=== PATIENT | female | born 1995 | race African-American/Black ===

== ENCOUNTER 2021-05-20 13:36 | Emergency (ER) | payer OTHER, SELFPAY ==
--- NOTE | 2021-05-20 16:28 | ER ---
Nurse's Notes [facility] Name: Kayli Mukherjee Age: 26 yrs Sex: Female : 1995 Arrival Date: 05/20/2021 Time: 13:40 Bed Waiting Private MD: Diagnosis: ED Course: 05/20 13:40 Patient arrived in ED. mr 16:27 Patient's name was called from ER lobby. No response. Unable to locate patient. Will jl7 disposition as left without being seen by a provider. Administered Medications: No medications were administered Outcome: 16:28 Patient left the ED. jl7 Signatures: Rafia Hanks Jahala RN RN jl7
== END 2021-05-20 16:28 | disposition left against medical advice (07) ==
LOC: ER 13:36
DX: Z02.89 Encounter for other administrative examinations (principal)

== ENCOUNTER 2022-04-24 01:30 | Emergency (ER) | payer SELFPAY ==
--- OUTSIDE RECORDS SUMMARY | 2022-04-24 01:49 | XMS REPORT | Continuity of Care Document ---
:1995 Author Organization [facility] t Address [address] [place] [address] Care Team Providers Name Role Phone Lida Lopez Primary Care Physician [phone] Problems This patient has no known problems. Allergies, Adverse Reactions, Alerts This patient has no known allergies or adverse reactions. Medications Ordered Filled Start Stop Current Ordering Indication Dosage Frequency Signature Comments Components Source Medication Medication Date Date Medication? Clinician (SIG) Name Name Dose 2021-0 No Unknown 5-17 00:00: 00 Dose 2022-0 No Unknown 4-07 00:00: 00 Dose 2022-0 No Unknown 4-07 00:00: 00 Dose 2022-0 No Unknown 4-07 00:00: 00 Dose 2022-0 No Unknown 4-07 00:00: 00 Dose 2022-0 No Unknown 4-07 00:00: 00 Dose 2022-0 No Unknown 4-07 00:00: 00 Dose 2022-0 No Unknown 4-07 00:00: 00 Dose 2022-0 No Unknown 4-07 00:00: 00 Dose 2022-0 No Unknown 4-07 00:00: 00 Dose 2022-0 No Unknown 4-07 00:00: 00 Dose 2022-0 No Unknown 4-07 00:00: 00 Dose 2022-0 No Unknown 4-07 00:00: 00 Dose 2022-0 No Unknown 4-07 00:00: 00 Dose 2022-0 No Unknown 4-07 00:00: 00 Dose 2022-0 No Unknown 4-06 00:00: 00 Dose 2022-0 No Unknown 4-05 00:00: 00 Dose 2022-0 No Unknown 4-04 00:00: 00 Dose 2022-0 No Unknown 4-04 00:00: 00 Dose 2022-0 No Unknown 4-04 00:00: 00 Dose 2022-0 No Unknown 4-04 00:00: 00 Dose 2022-0 No Unknown 4-04 00:00: 00 Dose 2022-0 No Unknown 4-04 00:00: 00 Dose 2022-0 No Unknown 4-04 00:00: 00 Dose 2022-0 No Unknown 4-04 00:00: 00 Dose 2022-0 No Unknown 4-04 00:00: 00 Dose 2022-0 No Unknown 4-04 00:00: 00 Dose 2022-0 No Unknown 4-04 00:00: 00 Dose 2022-0 No Unknown 4-04 00:00: 00 Dose 2022-0 No Unknown 4-02 00:00: 00 Dose 2022-0 No Unknown 4-02 00:00: 00 Dose 2022-0 No Unknown 4-02 00:00: 00 Dose 2022-0 No Unknown 4-02 00:00: 00 Dose 2022-0 No Unknown 4-02 00:00: 00 Dose 2022-0 No Unknown 4-02 00:00: 00 Dose 2022-0 No Unknown 4-02 00:00: 00 Dose 2022-0 No Unknown 4-02 00:00: 00 Dose 2022-0 No Unknown 4-02 00:00: 00 Dose 2022-0 No Unknown 4-02 00:00: 00 Dose 2022-0 No Unknown 4-02 00:00: 00 Dose 2022-0 No Unknown 4-02 00:00: 00 Dose 2022-0 No Unknown 4-02 00:00: 00 Dose 2022-0 No Unknown 4-02 00:00: 00 Dose 2022-0 No Unknown 4-02 00:00: 00 Dose 2022-0 No Unknown 4-02 00:00: 00 Dose 2022-0 No Unknown 4-02 00:00: 00 Dose 2022-0 No Unknown 4-02 00:00: 00 Dose 2022-0 No Unknown 4-02 00:00: 00 Dose 2022-0 No Unknown 4-02 00:00: 00 Dose 2022-0 No Unknown 4-02 00:00: 00 Dose 2022-0 No Unknown 4-02 00:00: 00 Dose 2022-0 No Unknown 4-02 00:00: 00 Dose 2022-0 No Unknown 4-02 00:00: 00 Dose 2022-0 No Unknown 4-02 00:00: 00 Dose 2022-0 No Unknown 4-02 00:00: 00 Dose 2022-0 No Unknown 4-02 00:00: 00 Dose 2022-0 No Unknown 4-02 00:00: 00 Dose 2022-0 No Unknown 4-02 00:00: 00 Dose 2022-0 No Unknown 4-02 00:00: 00 Dose 2022-0 No Unknown 4-02 00:00: 00 Dose 2022-0 No Unknown 4-02 00:00: 00 Dose 2022-0 No Unknown 4-02 00:00: 00 Dose 2022-0 No Unknown 4-02 00:00: 00 Dose 2022-0 No Unknown 4-02 00:00: 00 Dose 2022-0 No Unknown 4-02 00:00: 00 Dose 2022-0 No Unknown 4-02 00:00: 00 Dose 2022-0 No Unknown 4-02 00:00: 00 Dose 2022-0 No Unknown 4-02 00:00: 00 Dose 2022-0 No Unknown 4-02 00:00: 00 Dose 2022-0 No Unknown 4-02 00:00: 00 Dose 2022-0 No Unknown 4-02 00:00: 00 Dose 2022-0 No Unknown 4-02 00:00: 00 Dose 2022-0 No Unknown 4-02 00:00: 00 Dose 2022-0 No Unknown 4-02 00:00: 00 Dose 2022-0 No Unknown 4-02 00:00: 00 Dose 2022-0 No Unknown 4-02 00:00: 00 Dose 2022-0 No Unknown 4-02 00:00: 00 Dose 2022-0 No Unknown 4-02 00:00: 00 Dose 2022-0 No Unknown 4-02 00:00: 00 amoxicillin 2-0 No 1mg 875 4-01 mg-potassiu 00:00: m 00 clavulanate 125 mg tablet Bromfed DM 2021-0 No 10mg/5 2 mg-30 4-01 mL mg-10 mg/5 00:00: mL oral 00 syrup Dose 2-0 No Unknown 4-01 00:00: 00 Dose 2022-0 No Unknown 4-01 00:00: 00 Dose 2022-0 No Unknown 4-01 00:00: 00 Dose 2022-0 No Unknown 4-01 00:00: 00 Dose 2022-0 No Unknown 4-01 00:00: 00 Dose 2022-0 No Unknown 4-01 00:00: 00 Dose 2022-0 No Unknown 4-01 00:00: 00 Dose 2022-0 No Unknown 4-01 00:00: 00 Dose 2022-0 No Unknown 4-01 00:00: 00 Dose 2022-0 No Unknown 4-01 00:00: 00 Dose 2022-0 No Unknown 4-01 00:00: 00 Dose 2022-0 No Unknown 4-01 00:00: 00 Dose 2022-0 No Unknown 4-01 00:00: 00 Dose 2022-0 No Unknown 4-01 00:00: 00 Dose 2022-0 No Unknown 4-01 00:00: 00 Dose 2022-0 No Unknown 4-01 00:00: 00 Dose 2022-0 No Unknown 4-01 00:00: 00 Dose 2022-0 No Unknown 4-01 00:00: 00 Dose 2022-0 No Unknown 4-01 00:00: 00 Dose 2022-0 No Unknown 4-01 00:00: 00 Dose 2022-0 No Unknown 4-01 00:00: 00 Dose 2022-0 No Unknown 4-01 00:00: 00 Dose 2022-0 No Unknown 4-01 00:00: 00 Dose 2022-0 No Unknown 4-01 00:00: 00 Dose 2022-0 No Unknown 4-01 00:00: 00 Dose 2022-0 No Unknown 4-01 00:00: 00 Dose 2022-0 No Unknown 4-01 00:00: 00 Dose 2022-0 No Unknown 4-01 00:00: 00 Dose 2022-0 No Unknown 4-01 00:00: 00 Dose 2022-0 No Unknown 4-01 00:00: 00 Dose 2022-0 No Unknown 4-01 00:00: 00 Dose 2022-0 No Unknown 4- 00:00: 00 Dose 2022-0 No Unknown 4- 00:00: 00 Dose 2022-0 No Unknown 4-01 00:00: 00 Dose 2022-0 No Unknown 4-01 00:00: 00 Dose 2022-0 No Unknown 4-01 00:00: 00 Dose 2022-0 No Unknown 4-01 00:00: 00 Dose 2022-0 No Unknown 4-01 00:00: 00 Dose 2022-0 No Unknown 4-01 00:00: 00 Dose 2022-0 No Unknown 4-01 00:00: 00 Dose 2022-0 No Unknown 4-01 00:00: 00 Dose 2022-0 No Unknown 4-01 00:00: 00 Dose 2022-0 No Unknown 4-01 00:00: 00 Dose 2022-0 No Unknown 4-01 00:00: 00 Dose 2022-0 No Unknown 4-01 00:00: 00 Dose 2022-0 No Unknown 4-01 00:00: 00 Dose 2022-0 No Unknown 4-01 00:00: 00 Dose 2022-0 No Unknown 4- 00:00: 00 Dose 2022-0 No Unknown 4-01 00:00: 00 Dose 2022-0 No Unknown 4-01 00:00: 00 Dose 2022-0 No Unknown 4-01 00:00: 00 Dose 2022-0 No Unknown 4-01 00:00: 00 Dose 2022-0 No Unknown 4-01 00:00: 00 Dose 2022-0 No Unknown 4-01 00:00: 00 Dose 2022-0 No Unknown 4-01 00:00: 00 Dose 2022-0 No Unknown 4- 00:00: 00 Dose 2022-0 No Unknown 4- 00:00: 00 Dose 2022-0 No Unknown 4-01 00:00: 00 Dose 2022-0 No Unknown 4- 00:00: 00 Dose 2022-0 No Unknown 4-01 00:00: 00 Dose 2022-0 No Unknown 4- 00:00: 00 Dose 2022-0 No Unknown 4- 00:00: 00 Dose 2022-0 No Unknown 4-01 00:00: 00 Dose 2022-0 No Unknown 4-01 00:00: 00 Dose 2022-0 No Unknown 4- 00:00: 00 Dose 2022-0 No Unknown 4- 00:00: 00 Dose 2022-0 No Unknown 4- 00:00: 00 Dose 2022-0 No Unknown 4- 00:00: 00 Dose 2022-0 No Unknown 4- 00:00: 00 Dose 2022-0 No Unknown 4- 00:00: 00 metronidazo 2022-0 No 1mg le 500 mg 3-31 tablet 00:00: 00 Dose 2022-0 No Unknown 3-31 00:00: 00 Dose 2022-0 No Unknown 3-31 00:00: 00 Dose 2022-0 No Unknown 3-31 00:00: 00 Dose 2022-0 No Unknown 3-31 00:00: 00 Dose 2022-0 No Unknown 3-31 00:00: 00 Dose 2022-0 No Unknown 3-31 00:00: 00 Dose 2022-0 No Unknown 3-31 00:00: 00 Dose 2022-0 No Unknown 3-31 00:00: 00 Dose 2022-0 No Unknown 3-31 00:00: 00 Dose 2022-0 No Unknown 3-31 00:00: 00 Dose 2022-0 No Unknown 3-31 00:00: 00 Dose 2022-0 No Unknown 3-31 00:00: 00 Dose 2022-0 No Unknown 3-31 00:00: 00 Dose 2022-0 No Unknown 3-31 00:00: 00 Dose 2022-0 No Unknown 3-31 00:00: 00 Dose 2022-0 No Unknown 3-31 00:00: 00 Dose 2022-0 No Unknown 3-31 00:00: 00 Dose 2022-0 No Unknown 3-31 00:00: 00 Dose 2022-0 No Unknown 3-31 00:00: 00 Dose 2022-0 No Unknown 3-31 00:00: 00 Dose 2022-0 No Unknown 3-31 00:00: 00 Dose 2022-0 No Unknown 3-31 00:00: 00 Dose 2022-0 No Unknown 3-31 00:00: 00 Dose 2022-0 No Unknown 3-31 00:00: 00 Dose 2022-0 No Unknown 3-31 00:00: 00 Dose 2022-0 No Unknown 3-31 00:00: 00 Dose 2022-0 No Unknown 3-31 00:00: 00 Dose 2022-0 No Unknown 3-31 00:00: 00 Dose 2022-0 No Unknown 3-31 00:00: 00 Dose 2022-0 No Unknown 3-31 00:00: 00 Dose 2022-0 No Unknown 3-31 00:00: 00 Dose 2022-0 No Unknown 3-31 00:00: 00 Dose 2022-0 No Unknown 3-31 00:00: 00 Dose 2022-0 No Unknown 3-31 00:00: 00 Dose 2022-0 No Unknown 3-31 00:00: 00 Dose 2022-0 No Unknown 3-31 00:00: 00 Dose 2022-0 No Unknown 3-31 00:00: 00 Dose 2022-0 No Unknown 3-31 00:00: 00 Dose 2022-0 No Unknown 3-31 00:00: 00 Dose 2022-0 No Unknown 3-31 00:00: 00 Dose 2022-0 No Unknown 3-31 00:00: 00 Dose 2022-0 No Unknown 3-31 00:00: 00 Dose 2022-0 No Unknown 3-31 00:00: 00 Dose 2022-0 No Unknown 3-31 00:00: 00 Dose 2022-0 No Unknown 3-31 00:00: 00 Dose 2022-0 No Unknown 3-31 00:00: 00 Dose 2022-0 No Unknown 3-31 00:00: 00 Dose 2022-0 No Unknown 3-31 00:00: 00 Dose 2022-0 No Unknown 3-31 00:00: 00 Dose 2022-0 No Unknown 3-31 00:00: 00 Dose 2022-0 No Unknown 3-31 00:00: 00 Dose 2022-0 No Unknown 3-31 00:00: 00 Dose 2022-0 No Unknown 3-31 00:00: 00 Dose 2022-0 No Unknown 3-31 00:00: 00 Dose 2022-0 No Unknown 3-31 00:00: 00 Dose 2022-0 No Unknown 3-31 00:00: 00 Dose 2022-0 No Unknown 3-31 00:00: 00 Dose 2022-0 No Unknown 3-31 00:00: 00 Dose 2022-0 No Unknown 3-31 00:00: 00 Dose 2022-0 No Unknown 3-31 00:00: 00 Dose 2022-0 No Unknown 3-31 00:00: 00 Dose 2022-0 No Unknown 3-31 00:00: 00 Dose 2022-0 No Unknown 3-31 00:00: 00 Dose 2022-0 No Unknown 3-31 00:00: 00 Dose 2022-0 No Unknown 3-31 00:00: 00 Dose 2022-0 No Unknown 3-31 00:00: 00 Dose 2022-0 No Unknown 3-31 00:00: 00 Dose 2022-0 No Unknown 3-31 00:00: 00 Dose 2022-0 No Unknown 3-31 00:00: 00 Dose 2022-0 No Unknown 3-31 00:00: 00 Dose 2022-0 No Unknown 3-31 00:00: 00 Dose 2022-0 No Unknown 3-31 00:00: 00 Dose 2022-0 No Unknown 3-31 00:00: 00 Dose 2022-0 No Unknown 3-31 00:00: 00 Dose 2022-0 No Unknown 3-31 00:00: 00 Dose 2022-0 No Unknown 3-31 00:00: 00 Dose 2022-0 No Unknown 3-31 00:00: 00 Dose 2022-0 No Unknown 3-31 00:00: 00 Dose 2022-0 No Unknown 3-31 00:00: 00 Dose 2022-0 No Unknown 3-31 00:00: 00 Dose 2022-0 No Unknown 3-31 00:00: 00 Dose 2022-0 No Unknown 3-31 00:00: 00 Dose 2022-0 No Unknown 3-31 00:00: 00 Dose 2022-0 No Unknown 3-31 00:00: 00 Dose 2022-0 No Unknown 3-30 00:00: 00 Dose 2022-0 No Unknown 3-30 00:00: 00 Dose 2022-0 No Unknown 3-30 00:00: 00 Dose 2022-0 No Unknown 3-30 00:00: 00 Dose 2022-0 No Unknown 3-30 00:00: 00 Dose 2022-0 No Unknown 3-30 00:00: 00 Dose 2022-0 No Unknown 3-30 00:00: 00 Dose 2022-0 No Unknown 3-30 00:00: 00 Dose 2022-0 No Unknown 3-30 00:00: 00 Dose 2022-0 No Unknown 3-30 00:00: 00 Dose 2022-0 No Unknown 3-30 00:00: 00 Dose 2022-0 No Unknown 3-30 00:00: 00 Dose 2022-0 No Unknown 3-30 00:00: 00 Dose 2022-0 No Unknown 3-30 00:00: 00 Dose 2022-0 No Unknown 3-27 00:00: 00 Dose 2022-0 No Unknown 3-27 00:00: 00 Dose 2022-0 No Unknown 3-27 00:00: 00 Dose 2022-0 No Unknown 3-27 00:00: 00 Dose 2022-0 No Unknown 3-27 00:00: 00 Dose 2022-0 No Unknown 3-27 00:00: 00 Dose 2022-0 No Unknown 3-27 00:00: 00 Dose 2022-0 No Unknown 3-27 00:00: 00 Dose 2022-0 No Unknown 3-27 00:00: 00 Dose 2022-0 No Unknown 3-27 00:00: 00 Dose 2022-0 No Unknown 3-27 00:00: 00 Dose 2022-0 No Unknown 3-27 00:00: 00 Dose 2022-0 No Unknown 3-27 00:00: 00 Dose 2022-0 No Unknown 3-27 00:00: 00 Dose 2022-0 No Unknown 3-27 00:00: 00 Dose 2022-0 No Unknown 3-27 00:00: 00 Dose 2022-0 No Unknown 3-27 00:00: 00 Dose 2022-0 No Unknown 3-27 00:00: 00 Dose 2022-0 No Unknown 3-27 00:00: 00 Dose 2022-0 No Unknown 3-27 00:00: 00 Dose 2022-0 No Unknown 3-27 00:00: 00 Dose 2022-0 No Unknown 3-27 00:00: 00 Dose 2022-0 No Unknown 3-27 00:00: 00 Dose 2022-0 No Unknown 3-27 00:00: 00 Dose 2022-0 No Unknown 3-27 00:00: 00 Dose 2022-0 No Unknown 3-27 00:00: 00 Dose 2022-0 No Unknown 3-27 00:00: 00 Dose 2022-0 No Unknown 3-27 00:00: 00 Dose 2022-0 No Unknown 3-27 00:00: 00 Dose 2022-0 No Unknown 3-27 00:00: 00 Dose 2022-0 No Unknown 3-27 00:00: 00 Dose 2022-0 No Unknown 3-27 00:00: 00 Dose 2022-0 No Unknown 3-27 00:00: 00 Dose 2022-0 No Unknown 3-27 00:00: 00 Dose 2022-0 No Unknown 3-27 00:00: 00 Dose 2022-0 No Unknown 3-27 00:00: 00 Dose 2022-0 No Unknown 3-27 00:00: 00 Dose 2022-0 No Unknown 3-27 00:00: 00 Dose 2022-0 No Unknown 3-27 00:00: 00 Dose 2022-0 No Unknown 3-27 00:00: 00 Dose 2022-0 No Unknown 3-27 00:00: 00 Dose 2022-0 No Unknown 3-27 00:00: 00 Dose 2022-0 No Unknown 3-26 00:00: 00 Dose 2022-0 No Unknown 3-26 00:00: 00 Dose 2022-0 No Unknown 3-26 00:00: 00 Dose 2022-0 No Unknown 3-26 00:00: 00 Dose 2022-0 No Unknown 3-26 00:00: 00 Dose 2022-0 No Unknown 3-26 00:00: 00 Dose 2022-0 No Unknown 3-26 00:00: 00 Dose 2022-0 No Unknown 3-26 00:00: 00 Dose 2022-0 No Unknown 3-26 00:00: 00 Dose 2022-0 No Unknown 3-26 00:00: 00 Dose 2022-0 No Unknown 3-26 00:00: 00 Dose 2022-0 No Unknown 3-26 00:00: 00 Dose 2022-0 No Unknown 3-26 00:00: 00 Dose 2022-0 No Unknown 3-26 00:00: 00 Dose 2022-0 No Unknown 3-26 00:00: 00 Dose 2022-0 No Unknown 3-26 00:00: 00 Dose 2022-0 No Unknown 3-26 00:00: 00 Dose 2022-0 No Unknown 3-26 00:00: 00 Dose 2022-0 No Unknown 3-26 00:00: 00 Dose 2022-0 No Unknown 3-26 00:00: 00 Dose 2022-0 No Unknown 3-26 00:00: 00 Dose 2022-0 No Unknown 3-26 00:00: 00 Dose 2022-0 No Unknown 3-26 00:00: 00 Dose 2022-0 No Unknown 3- 00:00: 00 Dose 2022-0 No Unknown 3- 00:00: 00 Dose 2022-0 No Unknown 3- 00:00: 00 Dose 2022-0 No Unknown 3- 00:00: 00 Dose 2022-0 No Unknown 3- 00:00: 00 Dose 2022-0 No Unknown 3- 00:00: 00 Dose 2022-0 No Unknown 3- 00:00: 00 Dose 2022-0 No Unknown 3- 00:00: 00 Dose 2022-0 No Unknown 3- 00:00: 00 Dose 2022-0 No Unknown 3- 00:00: 00 Dose 2022-0 No Unknown 3- 00:00: 00 Dose 2022-0 No Unknown 3- 00:00: 00 Dose 2022-0 No Unknown 3 00:00: 00 Dose 2022-0 No Unknown 3- 00:00: 00 Dose 2022-0 No Unknown 3- 00:00: 00 Dose 2022-0 No Unknown 3- 00:00: 00 Dose 2022-0 No Unknown 3- 00:00: 00 Dose 2022-0 No Unknown 3- 00:00: 00 Dose 2022-0 No Unknown 3- 00:00: 00 Dose 2022-0 No Unknown 3- 00:00: 00 Dose 2022-0 No Unknown 3- 00:00: 00 Dose 2022-0 No Unknown 3- 00:00: 00 Dose 2022-0 No Unknown 3- 00:00: 00 Dose 2022-0 No Unknown 3- 00:00: 00 Dose 2022-0 No Unknown 3- 00:00: 00 Dose 2022-0 No Unknown 3- 00:00: 00 Dose 2022-0 No Unknown 3- 00:00: 00 Dose 2022-0 No Unknown 3- 00:00: 00 Dose 2022-0 No Unknown 3- 00:00: 00 Dose 2022-0 No Unknown 3- 00:00: 00 Dose 2022-0 No Unknown 3- 00:00: 00 Dose 2022-0 No Unknown 3- 00:00: 00 Dose 2022-0 No Unknown 3- 00:00: 00 Dose 2022-0 No Unknown 3- 00:00: 00 Dose 2022-0 No Unknown 3- 00:00: 00 Dose 2022-0 No Unknown 3- 00:00: 00 Dose 2022-0 No Unknown 3- 00:00: 00 Dose 2022-0 No Unknown 3- 00:00: 00 Dose 2022-0 No Unknown 3- 00:00: 00 Dose 2022-0 No Unknown 3- 00:00: 00 Dose 2022-0 No Unknown 3- 00:00: 00 Dose 2022-0 No Unknown 3- 00:00: 00 Dose 2022-0 No Unknown 3- 00:00: 00 Dose 2022-0 No Unknown 3- 00:00: 00 Dose 2022-0 No Unknown 3- 00:00: 00 Dose 2022-0 No Unknown 3 00:00: 00 Dose 2022-0 No Unknown 3 00:00: 00 Dose 2022-0 No Unknown 3- 00:00: 00 Dose 2022-0 No Unknown 3- 00:00: 00 Dose 2022-0 No Unknown 3- 00:00: 00 Dose 2022-0 No Unknown 3- 00:00: 00 Dose 2022-0 No Unknown 3- 00:00: 00 Dose 2022-0 No Unknown 3- 00:00: 00 Dose 2022-0 No Unknown 3- 00:00: 00 Dose 2022-0 No Unknown 3- 00:00: 00 Dose 2022-0 No Unknown 3- 00:00: 00 Dose 2022-0 No Unknown 3- 00:00: 00 Dose 2022-0 No Unknown 3- 00:00: 00 Dose 2022-0 No Unknown 3- 00:00: 00 Dose 2022-0 No Unknown 3- 00:00: 00 Dose 2022-0 No Unknown 3- 00:00: 00 Dose 2022-0 No Unknown 3- 00:00: 00 Dose 2022-0 No Unknown 3- 00:00: 00 Dose 2022-0 No Unknown 3- 00:00: 00 Dose 2022-0 No Unknown 3- 00:00: 00 Dose 2022-0 No Unknown 3- 00:00: 00 Dose 2022-0 No Unknown 3- 00:00: 00 Dose 2022-0 No Unknown 3- 00:00: 00 Dose 2022-0 No Unknown 3- 00:00: 00 Dose 2022-0 No Unknown 3- 00:00: 00 Dose 2022-0 No Unknown 3- 00:00: 00 Dose 2022-0 No Unknown 3- 00:00: 00 Dose 2022-0 No Unknown 3- 00:00: 00 Dose 2022-0 No Unknown 3- 00:00: 00 Dose 2022-0 No Unknown 3- 00:00: 00 Dose 2022-0 No Unknown 3- 00:00: 00 Dose 2022-0 No Unknown 3- 00:00: 00 Dose 2022-0 No Unknown 3- 00:00: 00 Dose 2022-0 No Unknown 3- 00:00: 00 Dose 2022-0 No Unknown 3- 00:00: 00 Dose 2022-0 No Unknown 3- 00:00: 00 Dose 2022-0 No Unknown 3- 00:00: 00 Dose 2022-0 No Unknown 3- 00:00: 00 Dose 2022-0 No Unknown 3- 00:00: 00 Dose 2022-0 No Unknown 3- 00:00: 00 Dose 2022-0 No Unknown 3- 00:00: 00 Dose 2022-0 No Unknown 3- 00:00: 00 Dose 2022-0 No Unknown 3- 00:00: 00 Dose 2022-0 No Unknown 3- 00:00: 00 Dose 2022-0 No Unknown 3- 00:00: 00 Dose 2022-0 No Unknown 3- 00:00: 00 Dose 2022-0 No Unknown 3- 00:00: 00 Dose 2022-0 No Unknown 3- 00:00: 00 Dose 2022-0 No Unknown 3- 00:00: 00 Dose 2022-0 No Unknown 3- 00:00: 00 Dose 2022-0 No Unknown 3- 00:00: 00 Dose 2022-0 No Unknown 3- 00:00: 00 Dose 2022-0 No Unknown 3- 00:00: 00 Dose 2022-0 No Unknown 3- 00:00: 00 Dose 2022-0 No Unknown 3- 00:00: 00 Dose 2022-0 No Unknown 3-26 00:00: 00 Dose 2022-0 No Unknown 3- 00:00: 00 Dose 2022-0 No Unknown 3- 00:00: 00 Dose 2022-0 No Unknown 3- 00:00: 00 Dose 2022-0 No Unknown 3- 00:00: 00 Dose 2022-0 No Unknown 3- 00:00: 00 Dose 2022-0 No Unknown 3- 00:00: 00 Dose 2022-0 No Unknown 3- 00:00: 00 Dose 2022-0 No Unknown 3- 00:00: 00 Dose 2022-0 No Unknown 3- 00:00: 00 Dose 2022-0 No Unknown 3- 00:00: 00 Dose 2022-0 No Unknown 3- 00:00: 00 Dose 2022-0 No Unknown 3 00:00: 00 Dose 2022-0 No Unknown 3- 00:00: 00 Dose 2022-0 No Unknown 3- 00:00: 00 Dose 2022-0 No Unknown 3- 00:00: 00 Dose 2022-0 No Unknown 3- 00:00: 00 Dose 2022-0 No Unknown 3- 00:00: 00 Dose 2022-0 No Unknown 3- 00:00: 00 Dose 2022-0 No Unknown 3- 00:00: 00 Dose 2022-0 No Unknown 3- 00:00: 00 Dose 2022-0 No Unknown 3- 00:00: 00 Dose 2022-0 No Unknown 3- 00:00: 00 Dose 2022-0 No Unknown 3- 00:00: 00 Dose 2022-0 No Unknown 3- 00:00: 00 Dose 2022-0 No Unknown 3- 00:00: 00 Dose 2022-0 No Unknown 3- 00:00: 00 Dose 2022-0 No Unknown 3- 00:00: 00 Dose 2022-0 No Unknown 3- 00:00: 00 Dose 2022-0 No Unknown 3- 00:00: 00 Dose 2022-0 No Unknown 3- 00:00: 00 Dose 2022-0 No Unknown 3- 00:00: 00 Dose 2022-0 No Unknown 3- 00:00: 00 Dose 2022-0 No Unknown 3- 00:00: 00 Dose 2022-0 No Unknown 3- 00:00: 00 Dose 2022-0 No Unknown 3- 00:00: 00 Dose 2022-0 No Unknown 3- 00:00: 00 Dose 2022-0 No Unknown 3- 00:00: 00 Dose 2022-0 No Unknown 3- 00:00: 00 Dose 2022-0 No Unknown 3- 00:00: 00 Dose 2022-0 No Unknown 3- 00:00: 00 Dose 2022-0 No Unknown 3- 00:00: 00 Dose 2022-0 No Unknown 3- 00:00: 00 Dose 2022-0 No Unknown 3- 00:00: 00 Dose 2022-0 No Unknown 3- 00:00: 00 Dose 2022-0 No Unknown 3- 00:00: 00 Dose 2022-0 No Unknown 3- 00:00: 00 Dose 2022-0 No Unknown 3- 00:00: 00 Dose 2022-0 No Unknown 3- 00:00: 00 Dose 2022-0 No Unknown 3- 00:00: 00 Dose 2022-0 No Unknown 3- 00:00: 00 Dose 2022-0 No Unknown 3- 00:00: 00 Dose 2022-0 No Unknown 3- 00:00: 00 Dose 2022-0 No Unknown 3- 00:00: 00 Dose 2022-0 No Unknown 3- 00:00: 00 Dose 2022-0 No Unknown 3- 00:00: 00 Dose 2022-0 No Unknown 3- 00:00: 00 Dose 2022-0 No Unknown 3- 00:00: 00 Dose 2022-0 No Unknown 3- 00:00: 00 Dose 2022-0 No Unknown 3-25 00:00: 00 Dose 2022-0 No Unknown 3-25 00:00: 00 Dose 2022-0 No Unknown 3-25 00:00: 00 Dose 2022-0 No Unknown 3-25 00:00: 00 Dose 2022-0 No Unknown 3-25 00:00: 00 Dose 2022-0 No Unknown 3-25 00:00: 00 Dose 2022-0 No Unknown 3-25 00:00: 00 Dose 2022-0 No Unknown 3-25 00:00: 00 Dose 2022-0 No Unknown 3-25 00:00: 00 Dose 2022-0 No Unknown 3-25 00:00: 00 Dose 2022-0 No Unknown 3-25 00:00: 00 Dose 2022-0 No Unknown 3-25 00:00: 00 Dose 2022-0 No Unknown 3-25 00:00: 00 Dose 2022-0 No Unknown 3-25 00:00: 00 Dose 2022-0 No Unknown 3-25 00:00: 00 Dose 2022-0 No Unknown 3-25 00:00: 00 Dose 2022-0 No Unknown 3-25 00:00: 00 Dose 2022-0 No Unknown 3-25 00:00: 00 Dose 2022-0 No Unknown 3-25 00:00: 00 Dose 2022-0 No Unknown 3-25 00:00: 00 Dose 2022-0 No Unknown 3-25 00:00: 00 Dose 2022-0 No Unknown 3-25 00:00: 00 Dose 2022-0 No Unknown 3-25 00:00: 00 Dose 2022-0 No Unknown 3-25 00:00: 00 Dose 2022-0 No Unknown 3-25 00:00: 00 Dose 2022-0 No Unknown 3-25 00:00: 00 Dose 2022-0 No Unknown 3-25 00:00: 00 Dose 2022-0 No Unknown 3-25 00:00: 00 Dose 2022-0 No Unknown 3-25 00:00: 00 Dose 2022-0 No Unknown 3-25 00:00: 00 Dose 2022-0 No Unknown 3-25 00:00: 00 Dose 2022-0 No Unknown 3-25 00:00: 00 Dose 2022-0 No Unknown 3-25 00:00: 00 Dose 2022-0 No Unknown 3-25 00:00: 00 Dose 2022-0 No Unknown 3-25 00:00: 00 Dose 2022-0 No Unknown 3-25 00:00: 00 Dose 2022-0 No Unknown 3-25 00:00: 00 Dose 2022-0 No Unknown 3-25 00:00: 00 Dose 2022-0 No Unknown 3-25 00:00: 00 Dose 2022-0 No Unknown 3-25 00:00: 00 Dose 2022-0 No Unknown 3-25 00:00: 00 Dose 2022-0 No Unknown 3-25 00:00: 00 Dose 2022-0 No Unknown 3-25 00:00: 00 Dose 2022-0 No Unknown 3-25 00:00: 00 Dose 2022-0 No Unknown 3-25 00:00: 00 Dose 2022-0 No Unknown 3-25 00:00: 00 Dose 2022-0 No Unknown 3-25 00:00: 00 Dose 2022-0 No Unknown 3-25 00:00: 00 Dose 2022-0 No Unknown 3-25 00:00: 00 Lexapro 10 2021-0 No 1mg mg tablet 1-26 00:00: 00 amoxicillin 2020-1 No 1mg 500 mg 1-18 tablet 00:00: 00 benzocaine 2020-1 No 1% 20 % 1-18 mucosal 00:00: aerosol 00 spray Claritin 10 2020-1 No 1mg mg tablet 0-19 00:00: 00 Dose 2020-1 No Unknown 0-19 00:00: 00 Tessalon 2020-1 No 1mg Perles 100 0-19 mg capsule 00:00: 00 sertraline 1-0 No 1mg 25 mg 8-12 tablet 00:00: 00 Strattera 1-0 No 1mg 40 mg 8-12 capsule 00:00: 00 sertraline 1-0 No 1mg 25 mg 7-28 tablet 00:00: 00 Strattera 1-0 No 1mg 40 mg 7-28 capsule 00:00: 00 Strattera 2014-1 No 1mg 60 mg 0-01 capsule 00:00: 00 Strattera 2015-0 No 1mg 60 mg 8-27 capsule 00:00: 00 Bactrim DS 2015-0 No 1mg 800 mg-160 8-12 mg tablet 00:00: 00 metronidazo 2015-0 No 1mg le 500 mg 7-27 tablet 00:00: 00 Strattera 2015-0 No 1mg 60 mg 5-07 capsule 00:00: 00 Strattera 2015-0 No 1mg 60 mg 3-12 capsule 00:00: 00 Strattera 2015-0 No 1mg 60 mg 3-12 capsule 00:00: 00 prednisone 2015-0 No 1mg 10 mg 2-14 tablet 00:00: 00 Vital Signs Vital Name Observation Time Observation Value Comments Source BP Systolic 2022-03-23 11:35:00 120 mm[Hg] BP Diastolic 2022-03-23 11:35:00 79 mm[Hg] Weight Measured 2022-03-23 11:35:00 186.00 pounds Height Measured 2022-03-23 11:35:00 65.00 inches Body Temperature 2022-03-23 11:35:00 97.70 degrees Heart Rate 2022-03-23 11:35:00 61.00 /min Respiratory Rate 2022-03-23 11:35:00 16.00 /min BP Systolic 2021-10-04 11:10:00 109 mm[Hg] BP Diastolic 2021-10-04 11:10:00 77 mm[Hg] Weight Measured 2021-10-04 11:10:00 186.80 pounds Height Measured 2021-10-04 11:10:00 65.00 inches Body Temperature 2021-10-04 11:10:00 98.10 degrees Heart Rate 2021-10-04 11:10:00 89.00 /min Respiratory Rate 2021-10-04 11:10:00 18.00 /min BP Systolic 2021-08-13 14:56:00 122 mm[Hg] BP Diastolic 2021-08-13 14:56:00 80 mm[Hg] Weight Measured 2021-08-13 14:56:00 185.20 pounds Height Measured 2021-08-13 14:56:00 65.00 inches Body Temperature 2021-08-13 14:56:00 98.20 degrees Heart Rate 2021-08-13 14:56:00 79.00 /min Respiratory Rate 2021-08-13 14:56:00 16.00 /min BP Systolic 2021-07-15 11:53:00 118 mm[Hg] BP Diastolic 2021-07-15 11:53:00 82 mm[Hg] Weight Measured 2021-07-15 11:53:00 185.60 pounds Height Measured 2021-07-15 11:53:00 65.00 inches Body Temperature 2021-07-15 11:53:00 98.10 degrees Heart Rate 2021-07-15 11:53:00 66.00 /min Respiratory Rate 2021-07-15 11:53:00 16.00 /min BP Systolic 2021-06-15 11:56:00 119 mm[Hg] BP Diastolic 2021-06-15 11:56:00 81 mm[Hg] Weight Measured 2021-06-15 11:56:00 187.00 pounds Height Measured 2021-06-15 11:56:00 65.00 inches Body Temperature 2021-06-15 11:56:00 98.00 degrees Heart Rate 2021-06-15 11:56:00 118.00 /min Respiratory Rate 2021-06-15 11:56:00 18.00 /min BP Systolic 2021-05-26 13:06:00 BP Diastolic 2021-05-26 13:06:00 Weight Measured 2021-05-26 13:06:00 184.00 pounds Height Measured 2021-05-26 13:06:00 65.00 inches Body Temperature 2021-05-26 13:06:00 Heart Rate 2021-05-26 13:06:00 Respiratory Rate 2021-05-26 13:06:00 BP Systolic 2021-04-07 15:51:00 128 mm[Hg] BP Diastolic 2021-04-07 15:51:00 78 mm[Hg] Weight Measured 2021-04-07 15:51:00 184.60 pounds Height Measured 2021-04-07 15:51:00 65.00 inches Body Temperature 2021-04-07 15:51:00 98.90 degrees Heart Rate 2021-04-07 15:51:00 73.00 /min Respiratory Rate 2021-04-07 15:51:00 BP Systolic 2021-03-08 14:34:00 BP Diastolic 2021-03-08 14:34:00 Weight Measured 2021-03-08 14:34:00 186.00 pounds Height Measured 2021-03-08 14:34:00 Body Temperature 2021-03-08 14:34:00 Heart Rate 2021-03-08 14:34:00 Respiratory Rate 2021-03-08 14:34:00 BP Systolic 2020-12-15 17:02:00 128 mm[Hg] BP Diastolic 2020-12-15 17:02:00 82 mm[Hg] Weight Measured 2020-12-15 17:02:00 190.00 pounds Height Measured 2020-12-15 17:02:00 65.00 inches Body Temperature 2020-12-15 17:02:00 98.40 degrees Heart Rate 2020-12-15 17:02:00 76.00 /min Respiratory Rate 2020-12-15 17:02:00 16.00 /min BP Systolic 2018-09-19 10:34:00 121 mm[Hg] BP Diastolic 2018-09-19 10:34:00 79 mm[Hg] Weight Measured 2018-09-19 10:34:00 185.80 pounds Height Measured 2018-09-19 10:34:00 65.00 inches Body Temperature 2018-09-19 10:34:00 99.10 degrees Heart Rate 2018-09-19 10:34:00 76.00 /min Respiratory Rate 2018-09-19 10:34:00 16.00 /min Procedures This patient has no known procedures. Plan of Care Planned Activity Planned Date Details Comments Source Goal Plan of Care Note [code = 43515-6] Goal Plan of Care Note [code = 07433-8] Goal Plan of Care Note [code = 88044-3] Goal Plan of Care Note [code = 35666-3] Goal Plan of Care Note [code = 40891-8] Goal Plan of Care Note [code = 87744-0] Goal Plan of Care Note [code = 82898-3] Goal Plan of Care Note [code = 64623-5] Goal Plan of Care Note [code = 81832-7] Goal Plan of Care Note [code = 72504-2] Goal Plan of Care Note [code = 18117-5] Goal Plan of Care Note [code = 27482-4] Goal Plan of Care Note [code = 57669-5] Goal Plan of Care Note [code = 33902-2] Goal Plan of Care Note [code = 58980-9] Goal Plan of Care Note [code = 98367-9] Goal Plan of Care Note [code = 57074-0] Goal Plan of Care Note [code = 65552-9] Goal Plan of Care Note [code = 08720-4] Goal Plan of Care Note [code = 60432-6] Goal Plan of Care Note [code = 78794-6] Goal Plan of Care Note [code = 49884-4] Goal Plan of Care Note [code = 80526-3] Goal Plan of Care Note [code = 98334-6] Goal Plan of Care Note [code = 38925-4] Goal Plan of Care Note [code = 55776-6] Goal Plan of Care Note [code = 91909-1] Goal Plan of Care Note [code = 13920-5] Goal Plan of Care Note [code = 00285-0] Goal Plan of Care Note [code = 65149-3] Goal Plan of Care Note [code = 90738-0] Goal Plan of Care Note [code = 11064-8] Goal Plan of Care Note [code = 73320-2] Goal Plan of Care Note [code = 29957-5] Encounters Start End Encounter Admission Attending Care Care Encounter Source Date/Time Date/Time Type Type Clinicians Facility Department ID 2022-03-23 2022-03-23 Outpatient [facility] [id number] Rhett 11:23:27 11:23:27 1103 F Saw 2022-03-23 2022-03-23 Outpatient [id number] 00:00:00 00:00:00 Visit [id number] Results Test Description Test Time Test Comments Results Result Comments Source PAP TEST, THINPREP, IMAGED 2021-08-18 07:15:37 Test Item Value Reference Range Interpretation Comme nts SOURCE: (test code = Cervical/Endocervical 8001) SLIDES: (test code = 1 8011) LMP: (test code = 08/12/2021 8021) SPECIMEN ADEQUACY: (NOTE) Satisfac tory for (test code = 12120) evaluati on. Endocervical cells/transform ation zone component prese nt. INTERPRETATION: NILM/NO EPITH. ABNORMALITY;SEE (test code = 33017) BELOW -------- NEGATIVE FOR INTRAEPITHE LIAL LESION OR MALIGNANCY ( NILM) -- OTHER COMMENTS: (NOTE) Shift in akin ra suggestive of (test code = 8081) bacterial vaginosis. DIXONAC OPERATOR: CATY ConnellyASCP)DEREK (test code = 8101) QC TECHNOLOGIST: VIOLET NARAYANAN(ASCP) (test code = 8111) LOCATION: (test code (NOTE) Specime ns processed and = 67310) [facility] [address] [place] [address], Phone: , CLIA: [id number] CPT: (test code = (NOTE) 47129 UNL ESS OTHERWISE 8140) INDICATED, COMP UTER AIDED AND CYTOTECHNOL OGIST SCREENING PERFO RMED. The Pap test is a scree lissette test with an inheren t, but low probability of error. Your patient should be reminded to consult you immediately if she experien victor hugo any suspicious sign s or symptoms, regar dless of her Pap test result . An alternate repor t format containing imag es or consolidated pr ior Pap history is avai labart as applicable. PAP TEST, THINPREP, [id number] 00:00:00 Test Item Value Reference Range Interpretation Comments SOURCE: (test code = Cervical/Endocervical 8001) SLIDES: (test code = 1 8011) LMP: (test code = 8021) 08/12/2021 SPECIMEN ADEQUACY: (NOTE) (test code = 43722) INTERPRETATION: (test NILM/NO EPITH. code = 50299) ABNORMALITY;SEE BELOW OTHER COMMENTS: (test (NOTE) code = 8081) DIXONAC OPERATOR: (test Rhett code = 8101) VIOLET Donald(ASCP)DEREK QC TECHNOLOGIST: (test VIOLET NARAYANAN(ASCP) code = 8111) LOCATION: (test code = (NOTE) 02378) CPT: (test code = 8140) (NOTE) PAP TEST, THINPREP, [id number] 00:00:00 Test Item Value Reference Range Interpretation Comments SOURCE: (test code = Cervical/Endocervical 8001) SLIDES: (test code = 1 8011) LMP: (test code = 8021) 08/12/2021 SPECIMEN ADEQUACY: (NOTE) (test code = 69089) INTERPRETATION: (test NILM/NO EPITH. code = 73549) ABNORMALITY;SEE BELOW OTHER COMMENTS: (test (NOTE) code = 8081) DIXONAC OPERATOR: (test Rhett code = 8101) VIOLET Donald(ASCP)IAC QC TECHNOLOGIST: (test TYE ABUTISTA,CT(ASCP) code = 8111) LOCATION: (test code = (NOTE) 60939) CPT: (test code = 8140) (NOTE) CT/NG, TMA, [id number] 19:15:55 Test Item Value Reference Range Interpretation Comments GONORRHEA, TMA NEGATIVE NEGATIVE Assay method ology is (test code = nucleic acid am plification 27080) by transcriptio n mediated amplification ( TMA) utilizing the A ptima Combo 2 Assay. CHLAMYDIA, TMA NEGATIVE NEGATIVE Assay method ology is (test code = nucleic acid am plification 69553) by transcriptio n mediated amplification ( TMA) utilizing the A ptima Combo 2 Assay. HPV HIGH RISK WITH GENOTYPE, [id number] 15:56:35 Test Item Value Reference Range Interpretation Comments HPV HIGH RISK INTERP POSITIVE NEGATIVE A (test code = 04001) HPV 16 (test code = NEGATIVE 29093) HPV 18 (test code = NEGATIVE 40250) HPV, HR, OTHER POSITIVE A Testing meth odology is GENOTYPES (test code real-ti me PCR utilizing = 11030) hydrolysis prob es with the [employer] [place] 4800 system. The mari t individually de tects genotypes 16 an d 18, as well as the oth er 12 high risk types (31,33,35,39,45 ,51,52,56 ,58,59,66,68). The expected result is negative. A neg ative result does not rule out the presence of HPV not included in the genotype set, a low leve l of infection or sp ecimen sampling error. UNLESS OTHERWISE INDIC ATED, ALL TESTING PERFORM ED ATCLINICAL PATH [facility], [facility]. [address] [place] [address] LAB[address]ORY DIRE CTOR: HANNAH GRANADOS M.D. CLIA NUMBER [id number] [facility] [id number] GC AND CHLAMYDIA AMPLIFIED, [id number] 00:00:00 Test Item Value Reference Range Interpretation Comments GONORRHEA, TMA (test code = 92511) NEGATIVE CHLAMYDIA, TMA (test code = 80229) NEGATIVE GC AND CHLAMYDIA AMPLIFIED, [id number] 00:00:00 Test Item Value Reference Range Interpretation Comments GONORRHEA, TMA (test code = 70513) NEGATIVE CHLAMYDIA, TMA (test code = 01879) NEGATIVE HPV HIGH RISK WITH GENOTYPE, [id number] 00:00:00 Test Item Value Reference Range Interpretation Comments HPV HIGH RISK INTERP (test code = POSITIVE 27696) HPV 16 (test code = 79622) NEGATIVE HPV 18 (test code = 40839) NEGATIVE HPV, HR, OTHER GENOTYPES (test code POSITIVE = 87986) HPV HIGH RISK WITH GENOTYPE, [id number] 00:00:00 Test Item Value Reference Range Interpretation Comments HPV HIGH RISK INTERP (test code = POSITIVE 27280) HPV 16 (test code = 95070) NEGATIVE HPV 18 (test code = 20685) NEGATIVE HPV, HR, OTHER GENOTYPES (test code POSITIVE = 82653) LIPID [id number] 04:09:03 Test Item Value Reference Range Interpretation Comments CHOLESTEROL (test 263 MG/DL <200 H code = 2210) TRIGLYCERIDES (test 85 MG/DL <150 code = 2232) HDL CHOLESTEROL (test 52 MG/DL >39 code = 2220) CALC LDL CHOL (test 192 MG/DL <100 H NOTE: C ALCULATED LDL code = 2237) IS BASED ON CHRISTIAN-GREWAL METHOD WHICHINCLUDES ADJUSTABLE TRIGLYCERIDE:VL DL CHOLESTEROL RAT IO.THIS FACTOR VARIES B Y MEASURED TRIGLY CERIDE AND NON-HDLCHOL ESTEROL CONCENTRATIONS WITH INCREASED CALCU LATED LDL SEENIN HIGH ER TRIGLYCERIDE OR LOWER NON-HDL SPECIME NS. FOR MOREINFORMATION , SEE CLIENT ANNOUNCE MENT AT [email or web address] RISK RATIO LDL/HDL 3.69 RATIO <3.22 H (test code = 2238) COMPREHENSIVE METABOLIC [id number] 04:09:03 Test Item Value Reference Range Interpretation Comments GLUCOSE (test code = 78 MG/DL 70-99 2216) BUN (test code = 16 MG/DL 6-20 2207) CREATININE (test 0.75 MG/DL 0.60-1.30 code = 221) eGFR (2020 CKD-EPI) 113 >60 (test code = 09099) ML/MIN/1.73 CALC BUN/CREAT (test 21 RATIO 6-28 code = 223) SODIUM (test code = 142 MEQ/L 014-924 8385) POTASSIUM (test code 4.5 MEQ/L 3.5-5.4 = 2227) CHLORIDE (test code 105 MEQ/L 95-107 = 2214) CARBON DIOXIDE (test 22 MEQ/L 19-31 code = 2205) CALCIUM (test code = 9.3 MG/DL 8.5-10.5 2208) PROTEIN, TOTAL (test 7.5 G/DL 6.1-8.3 code = 2228) ALBUMIN (test code = 4.6 G/DL 3.5-5.2 2200) CALC GLOBULIN (test 2.9 G/DL 1.9-3.7 code = 2239) CALC A/G RATIO (test 1.6 RATIO 1.0-2.6 code = 2233) BILIRUBIN, TOTAL 1.0 MG/DL See_Comment [Automated message] (test code = 2206) The [employer] which generated this result transmitted ref erence range: <=1.2. T he reference range was not used to int erpret this result as normal/abnormal . ALKALINE PHOSPHATASE 52 U/L 40-112 (test code = 2203) AST (test code = 19 U/L 9-40 2217) ALT (test code = 13 U/L 5-40 UNLESS OTH ERWISE 2218) INDICATED, ALL TESTING PERFORM ED ATCLINICAL PATH [facility], [place]. [address] [facility] [address] [facility] DIRECTOR: HANNAH HERNÁNDEZ M.D. CLIA NUMBER [id number] CAP ACCREDITATION N O. [id number] HEMOGLOBIN [id number] 03:55:46 Test Item Value Reference Range Interpretation Comments HEMOGLOBIN A1c (test code = 10679) 5.5 % 4.2-5.6 CBC W/AUTO DIFF WITH [id number] 03:05:16 Test Item Value Reference Range Interpretation Comments WBC (test code = 5.1 K/UL 3.5-11.0 1001) RBC (test code = 4.62 M/UL 3.80-5.40 1002) HEMOGLOBIN (test code 13.3 G/DL 11.5-15.5 = 1003) HEMATOCRIT (test code 40.7 % 34.0-45.0 = 1004) MCV (test code = 88.1 fL 80.0-99.0 1005) MCH (test code = 28.8 PG 25.0-33.0 1006) MCHC (test code = 32.7 G/DL 31.0-36.0 1007) RDW (test code = 13.3 % 11.5-15.0 1038) NEUTROPHILS (test 51.0 % code = 1008) LYMPHOCYTES (test 38.9 % code = 1010) MONOCYTES (test code 7.1 % = 1011) EOSINOPHILS (test 2.0 % code = 1012) BASOPHILS (test code 0.8 % = 1013) IMMATURE GRANULOCYTES 0.2 % (test code = 1036) NUCLEATED RBCS (test 0.0 /100 WBC'S See_Comment [Aut omated code = 1065) message] The sy stem which generated this result transmitted reference range : 0.0. The refere nce range was not u sed to interpret th is result as normal/abnormal . PLATELET COUNT (test 303 K/UL 130-400 code = 1015) ABSOLUTE NEUTROPHILS 2.60 K/UL 1.50-7.50 (test code = 1066) ABSOLUTE LYMPHOCYTES 1.98 K/UL 1.00-4.00 (test code = 1067) ABSOLUTE MONOCYTES 0.36 K/UL 0.20-1.00 (test code = 1068) ABSOLUTE EOSINOPHILS 0.10 K/UL 0.00-0.50 (test code = 1040) ABSOLUTE BASOPHILS 0.04 K/UL 0.00-0.20 (test code = 1069) ABS IMMATURE 0.01 K/UL 0.00-0.10 GRANULOCYTES (test code = 1020) ABS NUCLEATED RBCS 0.00 K/UL 0.00-0.11 (test code = 69997) CBC W/AUTO [id number] 00:00:00 Test Item Value Reference Range Interpretation Comments WBC (test code = 1001) 5.1 K/UL RBC (test code = 1002) 4.62 M/UL HEMOGLOBIN (test code = 1003) 13.3 G/DL HEMATOCRIT (test code = 1004) 40.7 % MCV (test code = 1005) 88.1 fL MCH (test code = 1006) 28.8 PG MCHC (test code = 1007) 32.7 G/DL RDW (test code = 1038) 13.3 % NEUTROPHILS (test code = 1008) 51.0 % LYMPHOCYTES (test code = 1010) 38.9 % MONOCYTES (test code = 1011) 7.1 % EOSINOPHILS (test code = 1012) 2.0 % BASOPHILS (test code = 1013) 0.8 % IMMATURE GRANULOCYTES (test 0.2 % code = 1036) NUCLEATED RBCS (test code = 0.0 /100WBC'S 1065) PLATELET COUNT (test code = 303 K/UL 1015) ABSOLUTE NEUTROPHILS (test code 2.60 K/UL = 1066) ABSOLUTE LYMPHOCYTES (test code 1.98 K/UL = 1067) ABSOLUTE MONOCYTES (test code = 0.36 K/UL 1068) ABSOLUTE EOSINOPHILS (test code 0.10 K/UL = 1040) ABSOLUTE BASOPHILS (test code = 0.04 K/UL 1069) ABS IMMATURE GRANULOCYTES (test 0.01 K/UL code = 1020) ABS NUCLEATED RBCS (test code = 0.00 K/UL 66453) CBC W/AUTO [id number] 00:00:00 Test Item Value Reference Range Interpretation Comments WBC (test code = 1001) 5.1 K/UL RBC (test code = 1002) 4.62 M/UL HEMOGLOBIN (test code = 1003) 13.3 G/DL HEMATOCRIT (test code = 1004) 40.7 % MCV (test code = 1005) 88.1 fL MCH (test code = 1006) 28.8 PG MCHC (test code = 1007) 32.7 G/DL RDW (test code = 1038) 13.3 % NEUTROPHILS (test code = 1008) 51.0 % LYMPHOCYTES (test code = 1010) 38.9 % MONOCYTES (test code = 1011) 7.1 % EOSINOPHILS (test code = 1012) 2.0 % BASOPHILS (test code = 1013) 0.8 % IMMATURE GRANULOCYTES (test 0.2 % code = 1036) NUCLEATED RBCS (test code = 0.0 /100WBC'S 1065) PLATELET COUNT (test code = 303 K/UL 1015) ABSOLUTE NEUTROPHILS (test code 2.60 K/UL = 1066) ABSOLUTE LYMPHOCYTES (test code 1.98 K/UL = 1067) ABSOLUTE MONOCYTES (test code = 0.36 K/UL 1068) ABSOLUTE EOSINOPHILS (test code 0.10 K/UL = 1040) ABSOLUTE BASOPHILS (test code = 0.04 K/UL 1069) ABS IMMATURE GRANULOCYTES (test 0.01 K/UL code = 1020) ABS NUCLEATED RBCS (test code = 0.00 K/UL 83383) CBC W/AUTO [id number] 00:00:00 Test Item Value Reference Range Interpretation Comments WBC (test code = 1001) 5.1 K/UL RBC (test code = 1002) 4.62 M/UL HEMOGLOBIN (test code = 1003) 13.3 G/DL HEMATOCRIT (test code = 1004) 40.7 % MCV (test code = 1005) 88.1 fL MCH (test code = 1006) 28.8 PG MCHC (test code = 1007) 32.7 G/DL RDW (test code = 1038) 13.3 % NEUTROPHILS (test code = 1008) 51.0 % LYMPHOCYTES (test code = 1010) 38.9 % MONOCYTES (test code = 1011) 7.1 % EOSINOPHILS (test code = 1012) 2.0 % BASOPHILS (test code = 1013) 0.8 % IMMATURE GRANULOCYTES (test 0.2 % code = 1036) NUCLEATED RBCS (test code = 0.0 /100WBC'S 1065) PLATELET COUNT (test code = 303 K/UL 1015) ABSOLUTE NEUTROPHILS (test code 2.60 K/UL = 1066) ABSOLUTE LYMPHOCYTES (test code 1.98 K/UL = 1067) ABSOLUTE MONOCYTES (test code = 0.36 K/UL 1068) ABSOLUTE EOSINOPHILS (test code 0.10 K/UL = 1040) ABSOLUTE BASOPHILS (test code = 0.04 K/UL 1069) ABS IMMATURE GRANULOCYTES (test 0.01 K/UL code = 1020) ABS NUCLEATED RBCS (test code = 0.00 K/UL 50134) HEMOGLOBIN [id number] 00:00:00 Test Item Value Reference Range Interpretation Comments HEMOGLOBIN A1c (test code = 74077) 5.5 % HEMOGLOBIN [id number] 00:00:00 Test Item Value Reference Range Interpretation Comments HEMOGLOBIN A1c (test code = 01872) 5.5 % HEMOGLOBIN [id number] 00:00:00 Test Item Value Reference Range Interpretation Comments HEMOGLOBIN A1c (test code = 33508) 5.5 % LIPID [id number] 00:00:00 Test Item Value Reference Range Interpretation Comments CHOLESTEROL (test code = 2210) 263 MG/DL TRIGLYCERIDES (test code = 2232) 85 MG/DL HDL CHOLESTEROL (test code = 2220) 52 MG/DL CALC LDL CHOL (test code = 2237) 192 MG/DL RISK RATIO LDL/HDL (test code = 3.69 RATIO 2238) LIPID [id number] 00:00:00 Test Item Value Reference Range Interpretation Comments CHOLESTEROL (test code = 2210) 263 MG/DL TRIGLYCERIDES (test code = 2232) 85 MG/DL HDL CHOLESTEROL (test code = 2220) 52 MG/DL CALC LDL CHOL (test code = 2237) 192 MG/DL RISK RATIO LDL/HDL (test code = 3.69 RATIO 2238) COMPREHENSIVE METABOLIC [id number] 00:00:00 Test Item Value Reference Range Interpretation Comments GLUCOSE (test code = 2217) 78 MG/DL BUN (test code = 2208) 16 MG/DL CREATININE (test code = 2214) 0.75 MG/DL eGFR (2020 CKD-EPI) (test 113 ML/MIN/1.73 code = 76827) CALC BUN/CREAT (test code = 21 RATIO 2235) SODIUM (test code = 2231) 142 MEQ/L POTASSIUM (test code = 2228) 4.5 MEQ/L CHLORIDE (test code = 2215) 105 MEQ/L CARBON DIOXIDE (test code = 22 MEQ/L 2205) CALCIUM (test code = 2209) 9.3 MG/DL PROTEIN, TOTAL (test code = 7.5 G/DL 2228) ALBUMIN (test code = 2201) 4.6 G/DL CALC GLOBULIN (test code = 2.9 G/DL 2239) CALC A/G RATIO (test code = 1.6 RATIO 2234) BILIRUBIN, TOTAL (test code = 1.0 MG/DL 2207) ALKALINE PHOSPHATASE (test 52 U/L code = 2204) AST (test code = 2218) 19 U/L ALT (test code = 2219) 13 U/L COMPREHENSIVE METABOLIC [id number] 00:00:00 Test Item Value Reference Range Interpretation Comments GLUCOSE (test code = 2217) 78 MG/DL BUN (test code = 2208) 16 MG/DL CREATININE (test code = 2214) 0.75 MG/DL eGFR (2020 CKD-EPI) (test 113 ML/MIN/1.73 code = 66720) CALC BUN/CREAT (test code = 21 RATIO 2235) SODIUM (test code = 2231) 142 MEQ/L POTASSIUM (test code = 2228) 4.5 MEQ/L CHLORIDE (test code = 2215) 105 MEQ/L CARBON DIOXIDE (test code = 22 MEQ/L 2205) CALCIUM (test code = 2209) 9.3 MG/DL PROTEIN, TOTAL (test code = 7.5 G/DL 2228) ALBUMIN (test code = 2201) 4.6 G/DL CALC GLOBULIN (test code = 2.9 G/DL 224) CALC A/G RATIO (test code = 1.6 RATIO 2234) BILIRUBIN, TOTAL (test code = 1.0 MG/DL 2206) ALKALINE PHOSPHATASE (test 52 U/L code = 2204) AST (test code = 2218) 19 U/L ALT (test code = 2219) 13 U/L CBC W/AUTO [id number] 00:00:00 Test Item Value Reference Range Interpretation Comments WBC (test code = 1001) 4.5 K/UL RBC (test code = 1002) 4.46 M/UL HEMOGLOBIN (test code = 1003) 13.1 G/DL HEMATOCRIT (test code = 1004) 39.1 % MCV (test code = 1005) 87.7 fL MCH (test code = 1006) 29.4 PG MCHC (test code = 1007) 33.5 G/DL RDW (test code = 1038) 12.8 % NEUTROPHILS (test code = 1008) 60.6 % LYMPHOCYTES (test code = 1010) 30.3 % MONOCYTES (test code = 1011) 6.2 % EOSINOPHILS (test code = 1012) 1.8 % BASOPHILS (test code = 1013) 0.9 % IMMATURE GRANULOCYTES (test 0.2 % code = 1036) NUCLEATED RBCS (test code = 0.0 /100WBC'S 1065) PLATELET COUNT (test code = 261 K/UL 1015) ABSOLUTE NEUTROPHILS (test code 2.74 K/UL = 1066) ABSOLUTE LYMPHOCYTES (test code 1.37 K/UL = 1067) ABSOLUTE MONOCYTES (test code = 0.28 K/UL 1068) ABSOLUTE EOSINOPHILS (test code 0.08 K/UL = 1040) ABSOLUTE BASOPHILS (test code = 0.04 K/UL 1069) ABS IMMATURE GRANULOCYTES (test 0.01 K/UL code = 1020) ABS NUCLEATED RBCS (test code = 0.00 K/UL 59779) CBC W/AUTO [id number] 00:00:00 Test Item Value Reference Range Interpretation Comments WBC (test code = 1001) 4.5 K/UL RBC (test code = 1002) 4.46 M/UL HEMOGLOBIN (test code = 1003) 13.1 G/DL HEMATOCRIT (test code = 1004) 39.1 % MCV (test code = 1005) 87.7 fL MCH (test code = 1006) 29.4 PG MCHC (test code = 1007) 33.5 G/DL RDW (test code = 1038) 12.8 % NEUTROPHILS (test code = 1008) 60.6 % LYMPHOCYTES (test code = 1010) 30.3 % MONOCYTES (test code = 1011) 6.2 % EOSINOPHILS (test code = 1012) 1.8 % BASOPHILS (test code = 1013) 0.9 % IMMATURE GRANULOCYTES (test 0.2 % code = 1036) NUCLEATED RBCS (test code = 0.0 /100WBC'S 1065) PLATELET COUNT (test code = 261 K/UL 1015) ABSOLUTE NEUTROPHILS (test code 2.74 K/UL = 1066) ABSOLUTE LYMPHOCYTES (test code 1.37 K/UL = 1067) ABSOLUTE MONOCYTES (test code = 0.28 K/UL 1068) ABSOLUTE EOSINOPHILS (test code 0.08 K/UL = 1040) ABSOLUTE BASOPHILS (test code = 0.04 K/UL 1069) ABS IMMATURE GRANULOCYTES (test 0.01 K/UL code = 1020) ABS NUCLEATED RBCS (test code = 0.00 K/UL 04978) CBC W/AUTO [id number] 00:00:00 Test Item Value Reference Range Interpretation Comments WBC (test code = 1001) 4.5 K/UL RBC (test code = 1002) 4.46 M/UL HEMOGLOBIN (test code = 1003) 13.1 G/DL HEMATOCRIT (test code = 1004) 39.1 % MCV (test code = 1005) 87.7 fL MCH (test code = 1006) 29.4 PG MCHC (test code = 1007) 33.5 G/DL RDW (test code = 1038) 12.8 % NEUTROPHILS (test code = 1008) 60.6 % LYMPHOCYTES (test code = 1010) 30.3 % MONOCYTES (test code = 1011) 6.2 % EOSINOPHILS (test code = 1012) 1.8 % BASOPHILS (test code = 1013) 0.9 % IMMATURE GRANULOCYTES (test 0.2 % code = 1036) NUCLEATED RBCS (test code = 0.0 /100WBC'S 1065) PLATELET COUNT (test code = 261 K/UL 1015) ABSOLUTE NEUTROPHILS (test code 2.74 K/UL = 1066) ABSOLUTE LYMPHOCYTES (test code 1.37 K/UL = 1067) ABSOLUTE MONOCYTES (test code = 0.28 K/UL 1068) ABSOLUTE EOSINOPHILS (test code 0.08 K/UL = 1040) ABSOLUTE BASOPHILS (test code = 0.04 K/UL 1069) ABS IMMATURE GRANULOCYTES (test 0.01 K/UL code = 1020) ABS NUCLEATED RBCS (test code = 0.00 K/UL 34403) COMPREHENSIVE METABOLIC [id number] 00:00:00 Test Item Value Reference Range Interpretation Comments GLUCOSE (test code = 2217) 88 MG/DL BUN (test code = 2208) 13 MG/DL CREATININE (test code = 2214) 0.74 MG/DL eGFR AMER. (test code 131 ML/MIN/1.73 = 07283) eGFR NON- AMER. (test 113 ML/MIN/1.73 code = 42702) CALC BUN/CREAT (test code = 18 RATIO 2235) SODIUM (test code = 2231) 139 MEQ/L POTASSIUM (test code = 2228) 4.2 MEQ/L CHLORIDE (test code = 2215) 103 MEQ/L CARBON DIOXIDE (test code = 24 MEQ/L 2206) CALCIUM (test code = 2209) 9.5 MG/DL PROTEIN, TOTAL (test code = 7.1 G/DL 2229) ALBUMIN (test code = 2201) 4.5 G/DL CALC GLOBULIN (test code = 2.6 G/DL 2240) CALC A/G RATIO (test code = 1.7 RATIO 2234) BILIRUBIN, TOTAL (test code = 0.9 MG/DL 2207) ALKALINE PHOSPHATASE (test 64 U/L code = 2204) AST (test code = 2218) 17 U/L ALT (test code = 2219) 14 U/L COMPREHENSIVE METABOLIC [id number] 00:00:00 Test Item Value Reference Range Interpretation Comments GLUCOSE (test code = 2217) 88 MG/DL BUN (test code = 2208) 13 MG/DL CREATININE (test code = 2214) 0.74 MG/DL eGFR AMER. (test code 131 ML/MIN/1.73 = 77122) eGFR NON- AMER. (test 113 ML/MIN/1.73 code = 37537) CALC BUN/CREAT (test code = 18 RATIO 2235) SODIUM (test code = 2231) 139 MEQ/L POTASSIUM (test code = 2228) 4.2 MEQ/L CHLORIDE (test code = 2215) 103 MEQ/L CARBON DIOXIDE (test code = 24 MEQ/L 2206) CALCIUM (test code = 2209) 9.5 MG/DL PROTEIN, TOTAL (test code = 7.1 G/DL 9) ALBUMIN (test code = 2201) 4.5 G/DL CALC GLOBULIN (test code = 2.6 G/DL 2240) CALC A/G RATIO (test code = 1.7 RATIO 2234) BILIRUBIN, TOTAL (test code = 0.9 MG/DL 2207) ALKALINE PHOSPHATASE (test 64 U/L code = 2204) AST (test code = 2218) 17 U/L ALT (test code = 2219) 14 U/L [id number] 00:00:00 Test Item Value Reference Range Interpretation Comments TSH, THIRD GENERATION (test code 1.750 UIU/ML = 2821) [id number] 00:00:00 Test Item Value Reference Range Interpretation Comments TSH, THIRD GENERATION (test code 1.750 UIU/ML = 2821) [id number] 00:00:00 Test Item Value Reference Range Interpretation Comments TSH, THIRD GENERATION (test code 1.750 UIU/ML = 2821) SARS-CoV-2 (COVID-19) by RT-PCR (HIGH RISK)2019-11-25 00:00:00 Test Item Value Reference Range Interpretation Comments SARS-CoV-2 INTERPRETATION NEGATIVE (test code = 51787) SOURCE (test code = 59992) NASOPHARYNGEAL SARS-CoV-2 (COVID-19) by RT-PCR (HIGH RISK)2019-11-25 00:00:00 Test Item Value Reference Range Interpretation Comments SARS-CoV-2 INTERPRETATION NEGATIVE (test code = 56150) SOURCE (test code = 63215) NASOPHARYNGEAL COMPREHENSIVE METABOLIC [id number] 00:00:00 Test Item Value Reference Range Interpretation Comments GLUCOSE (test code = 2217) 96 MG/DL BUN (test code = 2208) 13 MG/DL CREATININE (test code = 2214) 1.08 MG/DL eGFR AMER. (test code 84 ML/MIN/1.73 = 00169) eGFR NON- AMER. (test 73 ML/MIN/1.73 code = 57426) CALC BUN/CREAT (test code = 12 RATIO 2235) SODIUM (test code = 2231) 142 MEQ/L POTASSIUM (test code = 2228) 4.3 MEQ/L CHLORIDE (test code = 2215) 107 MEQ/L CARBON DIOXIDE (test code = 25 MEQ/L 2205) CALCIUM (test code = 2209) 9.6 MG/DL PROTEIN, TOTAL (test code = 6.7 G/DL 2228) ALBUMIN (test code = 2201) 4.4 G/DL CALC GLOBULIN (test code = 2.3 G/DL 2240) CALC A/G RATIO (test code = 1.9 RATIO 2234) BILIRUBIN, TOTAL (test code = 0.9 MG/DL 2206) ALKALINE PHOSPHATASE (test 57 U/L code = 2204) AST (test code = 2218) 21 U/L ALT (test code = 2219) 13 U/L COMPREHENSIVE METABOLIC [id number] 00:00:00 Test Item Value Reference Range Interpretation Comments GLUCOSE (test code = 2217) 96 MG/DL BUN (test code = 2208) 13 MG/DL CREATININE (test code = 2214) 1.08 MG/DL eGFR AMER. (test code 84 ML/MIN/1.73 = 55101) eGFR NON- AMER. (test 73 ML/MIN/1.73 code = 68043) CALC BUN/CREAT (test code = 12 RATIO 2235) SODIUM (test code = 2231) 142 MEQ/L POTASSIUM (test code = 2228) 4.3 MEQ/L CHLORIDE (test code = 2215) 107 MEQ/L CARBON DIOXIDE (test code = 25 MEQ/L 2205) CALCIUM (test code = 2209) 9.6 MG/DL PROTEIN, TOTAL (test code = 6.7 G/DL 2228) ALBUMIN (test code = 2201) 4.4 G/DL CALC GLOBULIN (test code = 2.3 G/DL 2239) CALC A/G RATIO (test code = 1.9 RATIO 2233) BILIRUBIN, TOTAL (test code = 0.9 MG/DL 2206) ALKALINE PHOSPHATASE (test 57 U/L code = 2204) AST (test code = 2218) 21 U/L ALT (test code = 2219) 13 U/L LIPID [id number] 00:00:00 Test Item Value Reference Range Interpretation Comments CHOLESTEROL (test code = 2210) 230 MG/DL TRIGLYCERIDES (test code = 2232) 145 MG/DL HDL CHOLESTEROL (test code = 2220) 50 MG/DL CALC LDL CHOL (test code = 2237) 151 MG/DL RISK RATIO LDL/HDL (test code = 3.02 RATIO 2238) LIPID [id number] 00:00:00 Test Item Value Reference Range Interpretation Comments CHOLESTEROL (test code = 2210) 230 MG/DL TRIGLYCERIDES (test code = 2232) 145 MG/DL HDL CHOLESTEROL (test code = 2220) 50 MG/DL CALC LDL CHOL (test code = 2237) 151 MG/DL RISK RATIO LDL/HDL (test code = 3.02 RATIO 2238) CBC W/AUTO [id number] 00:00:00 Test Item Value Reference Range Interpretation Comments WBC (test code = 1001) 5.3 K/UL RBC (test code = 1002) 4.53 M/UL HEMOGLOBIN (test code = 1003) 13.1 G/DL HEMATOCRIT (test code = 1004) 38.7 % MCV (test code = 1005) 85.4 fL MCH (test code = 1006) 28.9 PG MCHC (test code = 1007) 33.9 G/DL RDW (test code = 1038) 12.8 % NEUTROPHILS (test code = 1008) 58.5 % LYMPHOCYTES (test code = 1010) 32.0 % MONOCYTES (test code = 1011) 7.2 % EOSINOPHILS (test code = 1012) 1.5 % BASOPHILS (test code = 1013) 0.8 % PLATELET COUNT (test code = 1015) 264 K/UL CBC W/AUTO [id number] 00:00:00 Test Item Value Reference Range Interpretation Comments WBC (test code = 1001) 5.3 K/UL RBC (test code = 1002) 4.53 M/UL HEMOGLOBIN (test code = 1003) 13.1 G/DL HEMATOCRIT (test code = 1004) 38.7 % MCV (test code = 1005) 85.4 fL MCH (test code = 1006) 28.9 PG MCHC (test code = 1007) 33.9 G/DL RDW (test code = 1038) 12.8 % NEUTROPHILS (test code = 1008) 58.5 % LYMPHOCYTES (test code = 1010) 32.0 % MONOCYTES (test code = 1011) 7.2 % EOSINOPHILS (test code = 1012) 1.5 % BASOPHILS (test code = 1013) 0.8 % PLATELET COUNT (test code = 1015) 264 K/UL CBC W/AUTO [id number] 00:00:00 Test Item Value Reference Range Interpretation Comments WBC (test code = 1001) 5.3 K/UL RBC (test code = 1002) 4.53 M/UL HEMOGLOBIN (test code = 1003) 13.1 G/DL HEMATOCRIT (test code = 1004) 38.7 % MCV (test code = 1005) 85.4 fL MCH (test code = 1006) 28.9 PG MCHC (test code = 1007) 33.9 G/DL RDW (test code = 1038) 12.8 % NEUTROPHILS (test code = 1008) 58.5 % LYMPHOCYTES (test code = 1010) 32.0 % MONOCYTES (test code = 1011) 7.2 % EOSINOPHILS (test code = 1012) 1.5 % BASOPHILS (test code = 1013) 0.8 % PLATELET COUNT (test code = 1015) 264 K/UL HEMOGLOBIN [id number] 00:00:00 Test Item Value Reference Range Interpretation Comments HEMOGLOBIN A1c (test code = 29520) 5.4 % HEMOGLOBIN [id number] 00:00:00 Test Item Value Reference Range Interpretation Comments HEMOGLOBIN A1c (test code = 02396) 5.4 % HEMOGLOBIN [id number] 00:00:00 Test Item Value Reference Range Interpretation Comments HEMOGLOBIN A1c (test code = 79766) 5.4 % [id number] 00:00:00 Test Item Value Reference Range Interpretation Comments TSH (test code = 2821) 1.5 UIU/ML [id number] 00:00:00 Test Item Value Reference Range Interpretation Comments TSH (test code = 2821) 1.5 UIU/ML COMPREHENSIVE METABOLIC [id number] 00:00:00 Test Item Value Reference Range Interpretation Comments GLUCOSE (test code = 2217) 79 MG/DL BUN (test code = 2208) 14 MG/DL CREATININE (test code = 2214) 0.86 MG/DL eGFR AMER. (test code 114 ML/MIN/1.73 = 93009) eGFR NON- AMER. (test 98 ML/MIN/1.73 code = 42020) CALCULATED BUN/CREAT (test 16 RATIO code = 2235) SODIUM (test code = 2231) 141 MEQ/L POTASSIUM (test code = 2228) 4.2 MEQ/L CHLORIDE (test code = 2215) 105 MEQ/L CARBON DIOXIDE (test code = 26 MEQ/L 2205) CALCIUM (test code = 2209) 9.6 MG/DL PROTEIN, TOTAL (test code = 6.8 G/DL 2228) ALBUMIN (test code = 2201) 4.1 G/DL CALCULATED GLOBULIN (test 2.7 G/DL code = 2240) CALCULATED A/G RATIO (test 1.5 RATIO code = 2234) BILIRUBIN, TOTAL (test code = 0.8 MG/DL 2206) ALKALINE PHOSPHATASE (test 69 U/L code = 2204) SGOT (AST) (test code = 2218) 15 U/L SGPT (ALT) (test code = 2219) 14 U/L COMPREHENSIVE METABOLIC [id number] 00:00:00 Test Item Value Reference Range Interpretation Comments GLUCOSE (test code = 2217) 79 MG/DL BUN (test code = 2208) 14 MG/DL CREATININE (test code = 2214) 0.86 MG/DL eGFR AMER. (test code 114 ML/MIN/1.73 = 36506) eGFR NON- AMER. (test 98 ML/MIN/1.73 code = 99648) CALCULATED BUN/CREAT (test 16 RATIO code = 2235) SODIUM (test code = 2231) 141 MEQ/L POTASSIUM (test code = 2228) 4.2 MEQ/L CHLORIDE (test code = 2215) 105 MEQ/L CARBON DIOXIDE (test code = 26 MEQ/L 2205) CALCIUM (test code = 2209) 9.6 MG/DL PROTEIN, TOTAL (test code = 6.8 G/DL 2228) ALBUMIN (test code = 2201) 4.1 G/DL CALCULATED GLOBULIN (test 2.7 G/DL code = 2240) CALCULATED A/G RATIO (test 1.5 RATIO code = 2234) BILIRUBIN, TOTAL (test code = 0.8 MG/DL 2206) ALKALINE PHOSPHATASE (test 69 U/L code = 2204) SGOT (AST) (test code = 2218) 15 U/L SGPT (ALT) (test code = 2219) 14 U/L LIPID [id number] 00:00:00 Test Item Value Reference Range Interpretation Comments CHOLESTEROL (test code = 2210) 213 MG/DL TRIGLYCERIDES (test code = 2232) 100 MG/DL HDL CHOLESTEROL (test code = 2220) 63 MG/DL CALCULATED LDL CHOL (test code = 130 MG/DL 2236) RISK RATIO LDL/HDL (test code = 2.06 RATIO 2238) LIPID [id number] 00:00:00 Test Item Value Reference Range Interpretation Comments CHOLESTEROL (test code = 2210) 213 MG/DL TRIGLYCERIDES (test code = 2232) 100 MG/DL HDL CHOLESTEROL (test code = 2220) 63 MG/DL CALCULATED LDL CHOL (test code = 130 MG/DL 2237) RISK RATIO LDL/HDL (test code = 2.06 RATIO 2238) CBC W/AUTO [id number] 00:00:00 Test Item Value Reference Range Interpretation Comments WBC (test code = 1001) 5.2 K/UL RBC (test code = 1002) 4.45 M/UL HEMOGLOBIN (test code = 1003) 12.7 G/DL HEMATOCRIT (test code = 1004) 40.0 % MCV (test code = 1005) 89.9 fL MCH (test code = 1006) 28.5 PG MCHC (test code = 1007) 31.8 G/DL RDW (test code = 1038) 13.4 % NEUTROPHILS (test code = 1008) 63 % LYMPHOCYTES (test code = 1010) 28 % MONOCYTES (test code = 1011) 7 % EOSINOPHILS (test code = 1012) 1 % BASOPHILS (test code = 1013) 1 % PLATELET COUNT (test code = 1015) 262 K/UL CBC W/AUTO [id number] 00:00:00 Test Item Value Reference Range Interpretation Comments WBC (test code = 1001) 5.2 K/UL RBC (test code = 1002) 4.45 M/UL HEMOGLOBIN (test code = 1003) 12.7 G/DL HEMATOCRIT (test code = 1004) 40.0 % MCV (test code = 1005) 89.9 fL MCH (test code = 1006) 28.5 PG MCHC (test code = 1007) 31.8 G/DL RDW (test code = 1038) 13.4 % NEUTROPHILS (test code = 1008) 63 % LYMPHOCYTES (test code = 1010) 28 % MONOCYTES (test code = 1011) 7 % EOSINOPHILS (test code = 1012) 1 % BASOPHILS (test code = 1013) 1 % PLATELET COUNT (test code = 1015) 262 K/UL CBC W/AUTO [id number] 00:00:00 Test Item Value Reference Range Interpretation Comments WBC (test code = 1001) 5.2 K/UL RBC (test code = 1002) 4.45 M/UL HEMOGLOBIN (test code = 1003) 12.7 G/DL HEMATOCRIT (test code = 1004) 40.0 % MCV (test code = 1005) 89.9 fL MCH (test code = 1006) 28.5 PG MCHC (test code = 1007) 31.8 G/DL RDW (test code = 1038) 13.4 % NEUTROPHILS (test code = 1008) 63 % LYMPHOCYTES (test code = 1010) 28 % MONOCYTES (test code = 1011) 7 % EOSINOPHILS (test code = 1012) 1 % BASOPHILS (test code = 1013) 1 % PLATELET COUNT (test code = 1015) 262 K/UL HEMOGLOBIN [id number] 00:00:00 Test Item Value Reference Range Interpretation Comments HEMOGLOBIN A1c (test code = 00678) 5.8 % HEMOGLOBIN [id number] 00:00:00 Test Item Value Reference Range Interpretation Comments HEMOGLOBIN A1c (test code = 59844) 5.8 % HEMOGLOBIN [id number] 00:00:00 Test Item Value Reference Range Interpretation Comments HEMOGLOBIN A1c (test code = 23552) 5.8 % [id number] 00:00:00 Test Item Value Reference Range Interpretation Comments TSH (test code = 2821) 1.5 UIU/ML BASIC METABOLIC [id number] 00:00:00 Test Item Value Reference Range Interpretation Comments GLUCOSE (test code = 2217) 87 MG/DL BUN (test code = 2208) 15 MG/DL CREATININE (test code = 2214) 1.0 MG/DL eGFR AMER. (test code 87 ML/MIN/1.73 = 04580) eGFR NON- AMER. (test 72 ML/MIN/1.73 code = 85014) SODIUM (test code = 2231) 137 MEQ/L POTASSIUM (test code = 2228) 4.4 MEQ/L CHLORIDE (test code = 2215) 107 MEQ/L CARBON DIOXIDE (test code = 26 MEQ/L 2206) CALCIUM (test code = 2209) 9.8 MG/DL BASIC METABOLIC [id number] 00:00:00 Test Item Value Reference Range Interpretation Comments GLUCOSE (test code = 2217) 87 MG/DL BUN (test code = 2208) 15 MG/DL CREATININE (test code = 2214) 1.0 MG/DL eGFR AMER. (test code 87 ML/MIN/1.73 = 52975) eGFR NON- AMER. (test 72 ML/MIN/1.73 code = 88645) SODIUM (test code = 2231) 137 MEQ/L POTASSIUM (test code = 2228) 4.4 MEQ/L CHLORIDE (test code = 2215) 107 MEQ/L CARBON DIOXIDE (test code = 26 MEQ/L 2206) CALCIUM (test code = 2209) 9.8 MG/DL CBC W/AUTO [id number] 00:00:00 Test Item Value Reference Range Interpretation Comments WBC (test code = 1001) 5.7 K/UL RBC (test code = 1002) 4.39 M/UL HEMOGLOBIN (test code = 1003) 13.0 G/DL HEMATOCRIT (test code = 1004) 40.1 % MCV (test code = 1005) 91.3 fL MCH (test code = 1006) 29.6 PG MCHC (test code = 1007) 32.4 G/DL RDW (test code = 1038) 13.5 % NEUTROPHILS (test code = 1008) 54 % LYMPHOCYTES (test code = 1010) 37 % MONOCYTES (test code = 1011) 8 % EOSINOPHILS (test code = 1012) 1 % BASOPHILS (test code = 1013) 1 % PLATELET COUNT (test code = 1015) 280 K/UL CBC W/AUTO [id number] 00:00:00 Test Item Value Reference Range Interpretation Comments WBC (test code = 1001) 5.7 K/UL RBC (test code = 1002) 4.39 M/UL HEMOGLOBIN (test code = 1003) 13.0 G/DL HEMATOCRIT (test code = 1004) 40.1 % MCV (test code = 1005) 91.3 fL MCH (test code = 1006) 29.6 PG MCHC (test code = 1007) 32.4 G/DL RDW (test code = 1038) 13.5 % NEUTROPHILS (test code = 1008) 54 % LYMPHOCYTES (test code = 1010) 37 % MONOCYTES (test code = 1011) 8 % EOSINOPHILS (test code = 1012) 1 % BASOPHILS (test code = 1013) 1 % PLATELET COUNT (test code = 1015) 280 K/UL CBC W/AUTO [id number] 00:00:00 Test Item Value Reference Range Interpretation Comments WBC (test code = 1001) 5.7 K/UL RBC (test code = 1002) 4.39 M/UL HEMOGLOBIN (test code = 1003) 13.0 G/DL HEMATOCRIT (test code = 1004) 40.1 % MCV (test code = 1005) 91.3 fL MCH (test code = 1006) 29.6 PG MCHC (test code = 1007) 32.4 G/DL RDW (test code = 1038) 13.5 % NEUTROPHILS (test code = 1008) 54 % LYMPHOCYTES (test code = 1010) 37 % MONOCYTES (test code = 1011) 8 % EOSINOPHILS (test code = 1012) 1 % BASOPHILS (test code = 1013) 1 % PLATELET COUNT (test code = 1015) 280 K/UL OSMOLALITY, [id number] 00:00:00 Test Item Value Reference Range Interpretation Comments OSMOLALITY, SERUM (test code = 296 MOSM/KG 2044) OSMOLALITY, [id number] 00:00:00 Test Item Value Reference Range Interpretation Comments OSMOLALITY, SERUM (test code = 296 MOSM/KG 5)
--- NOTE | 2022-04-24 02:17 | EDPHYS ---
Physician Documentation [facility] Name: Kayli Mukherjee Age: 26 yrs Sex: Female : 1995 Arrival Date: 04/24/2022 Time: 01:36 Bed 11 Private MD: ED Physician Benson Arciniega HPI: 04/24 02:18 This 26 yrs old Black Female presents to ER via Unassigned with complaints of Cat Bite. rt 02:18 The patient was bitten on the left hand. Onset: The symptoms/episode began/occurred 1 rt hour(s) ago. Animal information: Animal's vaccinations are up to date. Secondary to the bite the patient reports a puncture wound, that is superficial. Severity of symptoms: At their worst the symptoms were mild. Patient presents to the ED with a cat bite to the right fifth digit on the nail just prior to arrival. She denies any other injuries at this time. She states that it was initially painful up to the knuckle, however, this does seem to be improving. She states that she does not believe that her tetanus is up-to-date. She denies other acute complaints at this time. The cat is known to her, rabies immunization is up-to-date. Denies other associated symptoms or other acute complaints. Symptoms are mild severity, no other aggravating leaving factors, pain is aching in nature, not otherwise radiating.. NETWORK INTERNSHIP: 02:33 LMP N/A - bb Historical: - Allergies: 02:29 No Known Allergies; ha1 - PMHx: 02:29 None; ha1 - Immunization history:: Adult Immunizations up to date. - Social history:: Smoking status: unknown. - Family history:: not pertinent. ROS: 02:18 Constitutional: Negative for fever, chills, and weight loss, Cardiovascular: Negative rt for chest pain, palpitations, and edema, Respiratory: Negative for shortness of breath, cough, wheezing, and pleuritic chest pain, Abdomen/GI: Negative for abdominal pain, nausea, vomiting, diarrhea, and constipation, Skin: Negative for injury, rash, and discoloration, Neuro: Negative for headache, weakness, numbness, tingling, and seizure, Psych: Negative for depression, anxiety, suicide ideation, homicidal ideation, and hallucinations. 02:18 Constitutional: Positive for 02:18 MS/extremity: Positive for Injury, pain. Exam: 02:18 Constitutional: This is a well developed, well nourished patient who is awake, alert, rt and in no acute distress. Head/Face: Normocephalic, atraumatic. Eyes: Pupils equal round and reactive to light, extra-ocular motions intact. Lids and lashes normal. Conjunctiva and sclera are non-icteric and not injected. Cornea within normal limits. Periorbital areas with no swelling, redness, or edema. Chest/axilla: Normal chest wall appearance and motion. Nontender with no deformity. No lesions are appreciated. Respiratory: Lungs have equal breath sounds bilaterally, clear to auscultation and percussion. No rales, rhonchi or wheezes noted. No increased work of breathing, no retractions or nasal flaring. Abdomen/GI: Soft, non-tender, with normal bowel sounds. No distension or tympany. No guarding or rebound. No evidence of tenderness throughout. Skin: Warm, dry with normal turgor. Normal color with no rashes, no lesions, and no evidence of cellulitis. Neuro: Awake and alert, GCS 15, oriented to person, place, time, and situation. Cranial nerves II-XII grossly intact. Motor strength 5/5 in all extremities. Sensory grossly intact. Cerebellar exam normal. Normal gait. Psych: Awake, alert, with orientation to person, place and time. Behavior, mood, and affect are within normal limits. 02:18 Musculoskeletal/extremity: Small puncture wound over nail of right fifth digit, no active bleeding, no swelling no. Vital Signs: 02:27 BP 131 / 79; Pulse 76; Resp 18 S; Temp 98.6; Pulse Ox 100% on R/A; ha1 MDM: 01:55 Patient medically screened. rt 02:18 Differential diagnosis: superficial laceration, tendon injury, rabies, cellulitis. Data rt reviewed: vital signs, nurses notes. ED course: Patient presents to the ED following cat bite. Patient is a small puncture wound with no active bleeding. Will prescribe Augmentin to prevent infection, it does not currently appear to be infected, she was informed of findings that were to be concerning for infection. Patient's tetanus immunization is up-to-date, however, patient declines immunization at this time after discussion of risks and benefits. She has decision-making capacity. She states that she wishes to follow-up as an outpatient for tetanus immunization. No further work-up is indicated this time, very low suspicion for fracture given mechanism of injury. Is stable for outpatient care, return precautions discussed.. Administered Medications: No medications were administered Disposition Summary: 04/24/22 02:17 Discharge Ordered Location: Home rt Problem: new rt Symptoms: are unchanged rt Condition: Stable rt Diagnosis - Bitten by cat rt Followup: rt - With: Private Physician - When: 5 - 6 days - Reason: Discharge Instructions: - Discharge Summary Sheet rt - Animal Bite, Adult rt Forms: - Medication Reconciliation Form rt - Thank You Letter rt - Antibiotic Education rt - Prescription Opioid Use rt Prescriptions: - Augmentin 875-125 mg Oral Tablet - take 1 tablet by ORAL route every 12 hours for 10 days; 20 tablet; Refills: 0, rt Product Selection Permitted Signatures: Tangela Noriega RN RN ha1 Benson Arciniega MD MD rt
--- NOTE | 2022-04-24 02:34 | ER ---
Nurse's Notes [facility] Name: Kayli Mukherjee Age: 26 yrs Sex: Female : 1995 Arrival Date: 04/24/2022 Time: 01:36 Bed 11 Private MD: Diagnosis: Bitten by cat Presentation: 04/24 02:27 Chief complaint: Patient states: I have a cat bite on my pinky of my left hand. ha1 Coronavirus screen: Vaccine status: Patient reports being unvaccinated. Ebola Screen: No symptoms or risks identified at this time. Initial Sepsis Screen: Does the patient meet any 2 criteria? No. Patient's initial sepsis screen is negative. Does the patient have a suspected source of infection? No. Patient's initial sepsis screen is negative. Risk Assessment: Do you want to hurt yourself or someone else? Patient reports no desire to harm self or others. Onset of symptoms was April 24, 2022. 02:27 Method Of Arrival: Ambulatory ha1 02:27 Acuity: KARELY 3 ha1 Triage Assessment: 01:50 Bite description: bite sustained to left hand on the pinky finger by a cat, animal ha1 information:. General: Appears comfortable, Behavior is calm, cooperative. Pain: Denies pain. EENT: No signs and/or symptoms were reported regarding the EENT system. Neuro: Level of Consciousness is awake, alert, obeys commands, Oriented to person, place, time, situation. Cardiovascular: Capillary refill < 3 seconds Patient's skin is warm and dry. Respiratory: Airway is patent Trachea midline Respiratory effort is even, unlabored, Respiratory pattern is regular, symmetrical. GI: No signs and/or symptoms were reported involving the gastrointestinal system. : No signs and/or symptoms were reported regarding the genitourinary system. Derm: Skin is normal. Musculoskeletal: Circulation, motion, and sensation intact. Range of motion:. 02:33 Bite description: bite sustained to left hand by a cat, animal information: bb vaccination(s) is unknown. 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 - Social history:: Smoking status: unknown. - Family history:: not pertinent. Screenin:31 Abuse screen: Denies threats or abuse. Nutritional screening: No deficits noted. bb Tuberculosis screening: No symptoms or risk factors identified. Fall Risk None identified. Assessment: 02:31 General: Appears in no apparent distress. Behavior is calm, cooperative. Pain: bb Complains of pain in left hand. Neuro: Level of Consciousness is awake, alert, obeys commands, Oriented to person, place, time, situation. Cardiovascular: No deficits noted. Respiratory: Respiratory effort is even, unlabored. GI: No signs and/or symptoms were reported involving the gastrointestinal system. Derm: Skin is intact, Skin is normal. Musculoskeletal: Circulation, motion, and sensation intact. Reports pain in left pinky finger. 02:32 Reassessment: pt verbalized understanding of and agrees to plan of care discharge bb instructions given pt ambulated with steady gait to exit. Vital Signs: 02:27 BP 131 / 79; Pulse 76; Resp 18 S; Temp 98.6; Pulse Ox 100% on R/A; ha1 ED Course: 01:36 Patient arrived in ED. ja2 01:52 Tangela Noriega, RN is Primary Nurse. ha1 01:54 Benson Arciniega MD is Attending Physician. rt 02:29 Triage completed. ha1 02:31 Patient has correct armband on for positive identification. Call light in reach. bb 02:31 No provider procedures requiring assistance completed. Patient did not have IV access bb during this emergency room visit. 02:33 Arm band placed on. bb Administered Medications: No medications were administered Medication: 02:31 VIS not applicable for this client. bb Outcome: 02:17 Discharge ordered by . rt 02:33 Patient left the ED. ha1 Signatures: Sarah Boyle RN RN Jane Dan [facility] Tangela Noriega RN RN ha1 Benson Arciniega MD MD rt
[2022-04-24 03:44] VITALS: BP 131/79; TEMP 98.6; O2SAT 100
== END 2022-04-24 02:33 | disposition home or self-care (01) ==
LOC: ER 01:30
DX: S61.237A Puncture wound without foreign body of left little finger without damage to nail, initial encounter (principal); W55.01XA Bitten by cat, initial encounter
CPT/HCPCS: 99281

== ENCOUNTER → 2023-07-11 | Emergency (ER) | payer SELFPAY ==
--- OUTSIDE RECORDS SUMMARY | 2023-07-11 14:06 | XMS REPORT | Continuity of Care Document ---
Author Name Unknown Address [address] [facility] [address] [place] [address] [facility] thconnect Address [address] [facility] [place] [address] Care Team Providers Care Industrial Analyst Name Role Phone Lida Lopez Primary Care Physician [phone] Medications Ordered Medication Name Filled Medication Name Start Date Stop Date Current Medication? Ordering Clinician Indication Dosage Frequency Signature (SIG) Comments Components Source Dose Unknown 2022-0 5-17 00:00: 00 No Dose Unknown 2022-0 4-07 00:00: 00 No Dose Unknown 2022-0 4-07 00:00: 00 No Dose Unknown 2022-0 4-07 00:00: 00 No Dose Unknown 2022-0 4-07 00:00: 00 No Dose Unknown 2022-0 4-07 00:00: 00 No Dose Unknown 2022-0 4-07 00:00: 00 No Dose Unknown 2022-0 4-07 00:00: 00 No Dose Unknown 2022-0 4-07 00:00: 00 No Dose Unknown 2022-0 4-07 00:00: 00 No Dose Unknown 2022-0 4-07 00:00: 00 No Dose Unknown 2022-0 4-07 00:00: 00 No Dose Unknown 2022-0 4-07 00:00: 00 No Dose Unknown 2022-0 4-07 00:00: 00 No Dose Unknown 2022-0 4-07 00:00: 00 No Dose Unknown 2022-0 4-06 00:00: 00 No Dose Unknown 2022-0 4-05 00:00: 00 No Dose Unknown 2022-0 4-04 00:00: 00 No Dose Unknown 2022-0 4-04 00:00: 00 No Dose Unknown 2022-0 4-04 00:00: 00 No Dose Unknown 2022-0 4-04 00:00: 00 No Dose Unknown 2022-0 4-04 00:00: 00 No Dose Unknown 2022-0 4-04 00:00: 00 No Dose Unknown 2022-0 4-04 00:00: 00 No Dose Unknown 2022-0 4-04 00:00: 00 No Dose Unknown 2022-0 4-04 00:00: 00 No Dose Unknown 2022-0 4-04 00:00: 00 No Dose Unknown 2022-0 4-04 00:00: 00 No Dose Unknown 2022-0 4-04 00:00: 00 No Dose Unknown 2022-0 4-02 00:00: 00 No Dose Unknown 2022-0 4-02 00:00: 00 No Dose Unknown 2022-0 4-02 00:00: 00 No Dose Unknown 2022-0 4-02 00:00: 00 No Dose Unknown 2022-0 4-02 00:00: 00 No Dose Unknown 2022-0 4-02 00:00: 00 No Dose Unknown 2022-0 4-02 00:00: 00 No Dose Unknown 2022-0 4-02 00:00: 00 No Dose Unknown 2022-0 4-02 00:00: 00 No Dose Unknown 2022-0 4-02 00:00: 00 No Dose Unknown 2022-0 4-02 00:00: 00 No Dose Unknown 2022-0 4-02 00:00: 00 No Dose Unknown 2022-0 4-02 00:00: 00 No Dose Unknown 2022-0 4-02 00:00: 00 No Dose Unknown 2022-0 4-02 00:00: 00 No Dose Unknown 2022-0 4-02 00:00: 00 No Dose Unknown 2022-0 4-02 00:00: 00 No Dose Unknown 2022-0 4-02 00:00: 00 No Dose Unknown 2022-0 4-02 00:00: 00 No Dose Unknown 2022-0 4-02 00:00: 00 No Dose Unknown 2022-0 4-02 00:00: 00 No Dose Unknown 2022-0 4-02 00:00: 00 No Dose Unknown 2022-0 4-02 00:00: 00 No Dose Unknown 2022-0 4-02 00:00: 00 No Dose Unknown 2022-0 4-02 00:00: 00 No Dose Unknown 2022-0 4-02 00:00: 00 No Dose Unknown 2022-0 4-02 00:00: 00 No Dose Unknown 2022-0 4-02 00:00: 00 No Dose Unknown 2022-0 4-02 00:00: 00 No Dose Unknown 2022-0 4-02 00:00: 00 No Dose Unknown 2022-0 4-02 00:00: 00 No Dose Unknown 2022-0 4-02 00:00: 00 No Dose Unknown 2022-0 4-02 00:00: 00 No Dose Unknown 2022-0 4-02 00:00: 00 No Dose Unknown 2022-0 4-02 00:00: 00 No Dose Unknown 2022-0 4-02 00:00: 00 No Dose Unknown 2022-0 4-02 00:00: 00 No Dose Unknown 2022-0 4-02 00:00: 00 No Dose Unknown 2022-0 4-02 00:00: 00 No Dose Unknown 2022-0 4-02 00:00: 00 No Dose Unknown 2022-0 4-02 00:00: 00 No Dose Unknown 2022-0 4-02 00:00: 00 No Dose Unknown 2022-0 4-02 00:00: 00 No Dose Unknown 2022-0 4-02 00:00: 00 No Dose Unknown 2022-0 4-02 00:00: 00 No Dose Unknown 2022-0 4-02 00:00: 00 No Dose Unknown 2022-0 4-02 00:00: 00 No Dose Unknown 2022-0 4-02 00:00: 00 No Dose Unknown 2022-0 4-02 00:00: 00 No Dose Unknown 2022-0 4-02 00:00: 00 No amoxicillin 875 mg-potassiu m clavulanate 125 mg tablet 2-0 4- 00:00: 00 No 1mg Bromfed DM 2 mg-30 mg-10 mg/5 mL oral syrup 2022-0 4- 00:00: 00 No 10mg/5 mL Dose Unknown 2022-0 4- 00:00: 00 No Dose Unknown 2022-0 4- 00:00: 00 No Dose Unknown 2022-0 4-01 00:00: 00 No Dose Unknown 2022-0 4-01 00:00: 00 No Dose Unknown 2022-0 4-01 00:00: 00 No Dose Unknown 2022-0 4-01 00:00: 00 No Dose Unknown 2022-0 4-01 00:00: 00 No Dose Unknown 2022-0 4-01 00:00: 00 No Dose Unknown 2022-0 4-01 00:00: 00 No Dose Unknown 2022-0 4-01 00:00: 00 No Dose Unknown 2022-0 4-01 00:00: 00 No Dose Unknown 2022-0 4-01 00:00: 00 No Dose Unknown 2022-0 4-01 00:00: 00 No Dose Unknown 2022-0 4-01 00:00: 00 No Dose Unknown 2022-0 4-01 00:00: 00 No Dose Unknown 2022-0 4-01 00:00: 00 No Dose Unknown 2022-0 4-01 00:00: 00 No Dose Unknown 2022-0 4-01 00:00: 00 No Dose Unknown 2022-0 4-01 00:00: 00 No Dose Unknown 2022-0 4-01 00:00: 00 No Dose Unknown 2022-0 4-01 00:00: 00 No Dose Unknown 2022-0 4-01 00:00: 00 No Dose Unknown 2022-0 4-01 00:00: 00 No Dose Unknown 2022-0 4-01 00:00: 00 No Dose Unknown 2022-0 4-01 00:00: 00 No Dose Unknown 2022-0 4-01 00:00: 00 No Dose Unknown 2022-0 4-01 00:00: 00 No Dose Unknown 2022-0 4-01 00:00: 00 No Dose Unknown 2022-0 4-01 00:00: 00 No Dose Unknown 2022-0 4-01 00:00: 00 No Dose Unknown 2022-0 4-01 00:00: 00 No Dose Unknown 2022-0 4-01 00:00: 00 No Dose Unknown 2022-0 4-01 00:00: 00 No Dose Unknown 2022-0 4-01 00:00: 00 No Dose Unknown 2022-0 4-01 00:00: 00 No Dose Unknown 2022-0 4-01 00:00: 00 No Dose Unknown 2022-0 4-01 00:00: 00 No Dose Unknown 2022-0 4-01 00:00: 00 No Dose Unknown 2022-0 4-01 00:00: 00 No Dose Unknown 2022-0 4-01 00:00: 00 No Dose Unknown 2022-0 4-01 00:00: 00 No Dose Unknown 2022-0 4-01 00:00: 00 No Dose Unknown 2022-0 4-01 00:00: 00 No Dose Unknown 2022-0 4-01 00:00: 00 No Dose Unknown 2022-0 4-01 00:00: 00 No Dose Unknown 2022-0 4-01 00:00: 00 No Dose Unknown 2022-0 4-01 00:00: 00 No Dose Unknown 2022-0 4-01 00:00: 00 No Dose Unknown 2022-0 4-01 00:00: 00 No Dose Unknown 2022-0 4-01 00:00: 00 No Dose Unknown 2022-0 4-01 00:00: 00 No Dose Unknown 2022-0 4-01 00:00: 00 No Dose Unknown 2022-0 4-01 00:00: 00 No Dose Unknown 2022-0 4-01 00:00: 00 No Dose Unknown 2022-0 4-01 00:00: 00 No Dose Unknown 2022-0 4-01 00:00: 00 No Dose Unknown 2022-0 4-01 00:00: 00 No Dose Unknown 2022-0 4-01 00:00: 00 No Dose Unknown 2022-0 4-01 00:00: 00 No Dose Unknown 2022-0 4-01 00:00: 00 No Dose Unknown 2022-0 4-01 00:00: 00 No Dose Unknown 2022-0 4-01 00:00: 00 No Dose Unknown 2022-0 4-01 00:00: 00 No Dose Unknown 2022-0 4-01 00:00: 00 No Dose Unknown 2022-0 4-01 00:00: 00 No Dose Unknown 2022-0 4-01 00:00: 00 No Dose Unknown 2022-0 4-01 00:00: 00 No Dose Unknown 2022-0 4-01 00:00: 00 No Dose Unknown 2022-0 4-01 00:00: 00 No Dose Unknown 2022-0 4-01 00:00: 00 No metronidazo le 500 mg tablet 2022-0 3-31 00:00: 00 No 1mg Dose Unknown 2022-0 3-31 00:00: 00 No Dose Unknown 2022-0 3-31 00:00: 00 No Dose Unknown 2022-0 3-31 00:00: 00 No Dose Unknown 2022-0 3-31 00:00: 00 No Dose Unknown 2022-0 3-31 00:00: 00 No Dose Unknown 2022-0 3-31 00:00: 00 No Dose Unknown 2022-0 3-31 00:00: 00 No Dose Unknown 2022-0 3-31 00:00: 00 No Dose Unknown 2022-0 3-31 00:00: 00 No Dose Unknown 2022-0 3-31 00:00: 00 No Dose Unknown 2022-0 3-31 00:00: 00 No Dose Unknown 2022-0 3-31 00:00: 00 No Dose Unknown 2022-0 3-31 00:00: 00 No Dose Unknown 2022-0 3-31 00:00: 00 No Dose Unknown 2022-0 3-31 00:00: 00 No Dose Unknown 2022-0 3-31 00:00: 00 No Dose Unknown 2022-0 3-31 00:00: 00 No Dose Unknown 2022-0 3-31 00:00: 00 No Dose Unknown 2022-0 3-31 00:00: 00 No Dose Unknown 2022-0 3-31 00:00: 00 No Dose Unknown 2022-0 3-31 00:00: 00 No Dose Unknown 2022-0 3-31 00:00: 00 No Dose Unknown 2022-0 3-31 00:00: 00 No Dose Unknown 2022-0 3-31 00:00: 00 No Dose Unknown 2022-0 3-31 00:00: 00 No Dose Unknown 2022-0 3-31 00:00: 00 No Dose Unknown 2022-0 3-31 00:00: 00 No Dose Unknown 2022-0 3-31 00:00: 00 No Dose Unknown 2022-0 3-31 00:00: 00 No Dose Unknown 2022-0 3-31 00:00: 00 No Dose Unknown 2022-0 3-31 00:00: 00 No Dose Unknown 2022-0 3-31 00:00: 00 No Dose Unknown 2022-0 3-31 00:00: 00 No Dose Unknown 2022-0 3-31 00:00: 00 No Dose Unknown 2022-0 3-31 00:00: 00 No Dose Unknown 2022-0 3-31 00:00: 00 No Dose Unknown 2022-0 3-31 00:00: 00 No Dose Unknown 2022-0 3-31 00:00: 00 No Dose Unknown 2022-0 3-31 00:00: 00 No Dose Unknown 2022-0 3-31 00:00: 00 No Dose Unknown 2022-0 3-31 00:00: 00 No Dose Unknown 2022-0 3-31 00:00: 00 No Dose Unknown 2022-0 3-31 00:00: 00 No Dose Unknown 2022-0 3-31 00:00: 00 No Dose Unknown 2022-0 3-31 00:00: 00 No Dose Unknown 2022-0 3-31 00:00: 00 No Dose Unknown 2022-0 3-31 00:00: 00 No Dose Unknown 2022-0 3-31 00:00: 00 No Dose Unknown 2022-0 3-31 00:00: 00 No Dose Unknown 2022-0 3-31 00:00: 00 No Dose Unknown 2022-0 3-31 00:00: 00 No Dose Unknown 2022-0 3-31 00:00: 00 No Dose Unknown 2022-0 3-31 00:00: 00 No Dose Unknown 2022-0 3-31 00:00: 00 No Dose Unknown 2022-0 3-31 00:00: 00 No Dose Unknown 2022-0 3-31 00:00: 00 No Dose Unknown 2022-0 3-31 00:00: 00 No Dose Unknown 2022-0 3-31 00:00: 00 No Dose Unknown 2022-0 3-31 00:00: 00 No Dose Unknown 2022-0 3-31 00:00: 00 No Dose Unknown 2022-0 3-31 00:00: 00 No Dose Unknown 2022-0 3-31 00:00: 00 No Dose Unknown 2022-0 3-31 00:00: 00 No Dose Unknown 2022-0 3-31 00:00: 00 No Dose Unknown 2022-0 3-31 00:00: 00 No Dose Unknown 2022-0 3-31 00:00: 00 No Dose Unknown 2022-0 3-31 00:00: 00 No Dose Unknown 2022-0 3-31 00:00: 00 No Dose Unknown 2022-0 3-31 00:00: 00 No Dose Unknown 2022-0 3-31 00:00: 00 No Dose Unknown 2022-0 3-31 00:00: 00 No Dose Unknown 2022-0 3-31 00:00: 00 No Dose Unknown 2022-0 3-31 00:00: 00 No Dose Unknown 2022-0 3-31 00:00: 00 No Dose Unknown 2022-0 3-31 00:00: 00 No Dose Unknown 2022-0 3-31 00:00: 00 No Dose Unknown 2022-0 3-31 00:00: 00 No Dose Unknown 2022-0 3-31 00:00: 00 No Dose Unknown 2022-0 3-31 00:00: 00 No Dose Unknown 2022-0 3-31 00:00: 00 No Dose Unknown 2022-0 3-31 00:00: 00 No Dose Unknown 2022-0 3-31 00:00: 00 No Dose Unknown 2022-0 3-31 00:00: 00 No Dose Unknown 2022-0 3-31 00:00: 00 No Dose Unknown 2022-0 3-30 00:00: 00 No Dose Unknown 2022-0 3-30 00:00: 00 No Dose Unknown 2022-0 3-30 00:00: 00 No Dose Unknown 2022-0 3-30 00:00: 00 No Dose Unknown 2022-0 3-30 00:00: 00 No Dose Unknown 2022-0 3-30 00:00: 00 No Dose Unknown 2022-0 3-30 00:00: 00 No Dose Unknown 2022-0 3-30 00:00: 00 No Dose Unknown 2022-0 3-30 00:00: 00 No Dose Unknown 2022-0 3-30 00:00: 00 No Dose Unknown 2022-0 3-30 00:00: 00 No Dose Unknown 2022-0 3-30 00:00: 00 No Dose Unknown 2022-0 3-30 00:00: 00 No Dose Unknown 2022-0 3-30 00:00: 00 No Dose Unknown 2022-0 3-27 00:00: 00 No Dose Unknown 2022-0 3-27 00:00: 00 No Dose Unknown 2022-0 3-27 00:00: 00 No Dose Unknown 2022-0 3-27 00:00: 00 No Dose Unknown 2022-0 3-27 00:00: 00 No Dose Unknown 2022-0 3-27 00:00: 00 No Dose Unknown 2022-0 3-27 00:00: 00 No Dose Unknown 2022-0 3-27 00:00: 00 No Dose Unknown 2022-0 3-27 00:00: 00 No Dose Unknown 2022-0 327 00:00: 00 No Dose Unknown 2022-0 327 00:00: 00 No Dose Unknown 2022-0 327 00:00: 00 No Dose Unknown 2022-0 327 00:00: 00 No Dose Unknown 2022-0 327 00:00: 00 No Dose Unknown 2022-0 327 00:00: 00 No Dose Unknown 2022-0 3-27 00:00: 00 No Dose Unknown 2022-0 3-27 00:00: 00 No Dose Unknown 2022-0 327 00:00: 00 No Dose Unknown 2022-0 3-27 00:00: 00 No Dose Unknown 2022-0 3-27 00:00: 00 No Dose Unknown 2022-0 3-27 00:00: 00 No Dose Unknown 2022-0 3-27 00:00: 00 No Dose Unknown 2022-0 327 00:00: 00 No Dose Unknown 2022-0 3-27 00:00: 00 No Dose Unknown 2022-0 3-27 00:00: 00 No Dose Unknown 2022-0 327 00:00: 00 No Dose Unknown 2022-0 327 00:00: 00 No Dose Unknown 2022-0 3-27 00:00: 00 No Dose Unknown 2022-0 327 00:00: 00 No Dose Unknown 2022-0 327 00:00: 00 No Dose Unknown 2022-0 327 00:00: 00 No Dose Unknown 2022-0 327 00:00: 00 No Dose Unknown 2022-0 3-27 00:00: 00 No Dose Unknown 2022-0 3-27 00:00: 00 No Dose Unknown 2022-0 3-27 00:00: 00 No Dose Unknown 2022-0 3-27 00:00: 00 No Dose Unknown 2022-0 3-27 00:00: 00 No Dose Unknown 2022-0 3-27 00:00: 00 No Dose Unknown 2022-0 3-27 00:00: 00 No Dose Unknown 2022-0 3-27 00:00: 00 No Dose Unknown 2022-0 3-27 00:00: 00 No Dose Unknown 2022-0 3-27 00:00: 00 No Dose Unknown 2022-0 3-26 00:00: 00 No Dose Unknown 2022-0 3-26 00:00: 00 No Dose Unknown 2022-0 3-26 00:00: 00 No Dose Unknown 2022-0 3-26 00:00: 00 No Dose Unknown 2022-0 3-26 00:00: 00 No Dose Unknown 2022-0 3-26 00:00: 00 No Dose Unknown 2022-0 3-26 00:00: 00 No Dose Unknown 2022-0 3-26 00:00: 00 No Dose Unknown 2022-0 3-26 00:00: 00 No Dose Unknown 2022-0 3-26 00:00: 00 No Dose Unknown 2022-0 3-26 00:00: 00 No Dose Unknown 2022-0 3-26 00:00: 00 No Dose Unknown 2022-0 3-26 00:00: 00 No Dose Unknown 2022-0 3-26 00:00: 00 No Dose Unknown 2022-0 3-26 00:00: 00 No Dose Unknown 2022-0 3-26 00:00: 00 No Dose Unknown 2022-0 3-26 00:00: 00 No Dose Unknown 2022-0 3-26 00:00: 00 No Dose Unknown 2022-0 3-26 00:00: 00 No Dose Unknown 2022-0 3-26 00:00: 00 No Dose Unknown 2022-0 3-26 00:00: 00 No Dose Unknown 2022-0 3-26 00:00: 00 No Dose Unknown 2022-0 3-26 00:00: 00 No Dose Unknown 2022-0 3-26 00:00: 00 No Dose Unknown 2022-0 3-26 00:00: 00 No Dose Unknown 2022-0 3-26 00:00: 00 No Dose Unknown 2022-0 3-26 00:00: 00 No Dose Unknown 2022-0 3-26 00:00: 00 No Dose Unknown 2022-0 3-26 00:00: 00 No Dose Unknown 2022-0 3-26 00:00: 00 No Dose Unknown 2022-0 3-26 00:00: 00 No Dose Unknown 2022-0 3-26 00:00: 00 No Dose Unknown 2022-0 3-26 00:00: 00 No Dose Unknown 2022-0 3-26 00:00: 00 No Dose Unknown 2022-0 3-26 00:00: 00 No Dose Unknown 2022-0 3-26 00:00: 00 No Dose Unknown 2022-0 3-26 00:00: 00 No Dose Unknown 2022-0 3-26 00:00: 00 No Dose Unknown 2022-0 3-26 00:00: 00 No Dose Unknown 2022-0 3-26 00:00: 00 No Dose Unknown 2022-0 3-26 00:00: 00 No Dose Unknown 2022-0 3-26 00:00: 00 No Dose Unknown 2022-0 3-26 00:00: 00 No Dose Unknown 2022-0 3-26 00:00: 00 No Dose Unknown 2022-0 3-26 00:00: 00 No Dose Unknown 2022-0 3-26 00:00: 00 No Dose Unknown 2022-0 3-26 00:00: 00 No Dose Unknown 2022-0 3-26 00:00: 00 No Dose Unknown 2022-0 3-26 00:00: 00 No Dose Unknown 2022-0 3-26 00:00: 00 No Dose Unknown 2022-0 3-26 00:00: 00 No Dose Unknown 2022-0 3-26 00:00: 00 No Dose Unknown 2022-0 3-26 00:00: 00 No Dose Unknown 2022-0 3-26 00:00: 00 No Dose Unknown 2022-0 3-26 00:00: 00 No Dose Unknown 2022-0 3-26 00:00: 00 No Dose Unknown 2022-0 3-26 00:00: 00 No Dose Unknown 2022-0 3-26 00:00: 00 No Dose Unknown 2022-0 3-26 00:00: 00 No Dose Unknown 2022-0 3-26 00:00: 00 No Dose Unknown 2022-0 3-26 00:00: 00 No Dose Unknown 2022-0 3-26 00:00: 00 No Dose Unknown 2022-0 3-26 00:00: 00 No Dose Unknown 2022-0 3-26 00:00: 00 No Dose Unknown 2022-0 3-26 00:00: 00 No Dose Unknown 2022-0 3-26 00:00: 00 No Dose Unknown 2022-0 3-26 00:00: 00 No Dose Unknown 2022-0 326 00:00: 00 No Dose Unknown 2022-0 3-26 00:00: 00 No Dose Unknown 2022-0 3-26 00:00: 00 No Dose Unknown 2022-0 3-26 00:00: 00 No Dose Unknown 2022-0 3-26 00:00: 00 No Dose Unknown 2022-0 3-26 00:00: 00 No Dose Unknown 2022-0 3-26 00:00: 00 No Dose Unknown 2022-0 3-26 00:00: 00 No Dose Unknown 2022-0 3-26 00:00: 00 No Dose Unknown 2022-0 3-26 00:00: 00 No Dose Unknown 2022-0 3-26 00:00: 00 No Dose Unknown 2022-0 3-26 00:00: 00 No Dose Unknown 2022-0 3-26 00:00: 00 No Dose Unknown 2022-0 3-26 00:00: 00 No Dose Unknown 2022-0 3-26 00:00: 00 No Dose Unknown 2022-0 3-26 00:00: 00 No Dose Unknown 2022-0 326 00:00: 00 No Dose Unknown 2022-0 3-26 00:00: 00 No Dose Unknown 2022-0 3-26 00:00: 00 No Dose Unknown 2022-0 3-26 00:00: 00 No Dose Unknown 2022-0 3-26 00:00: 00 No Dose Unknown 2022-0 3-26 00:00: 00 No Dose Unknown 2022-0 326 00:00: 00 No Dose Unknown 2022-0 3-26 00:00: 00 No Dose Unknown 2022-0 3-26 00:00: 00 No Dose Unknown 2022-0 3-26 00:00: 00 No Dose Unknown 2022-0 3-26 00:00: 00 No Dose Unknown 2022-0 3-26 00:00: 00 No Dose Unknown 2022-0 3-26 00:00: 00 No Dose Unknown 2022-0 3-26 00:00: 00 No Dose Unknown 2022-0 3-26 00:00: 00 No Dose Unknown 2022-0 3-26 00:00: 00 No Dose Unknown 2022-0 3-26 00:00: 00 No Dose Unknown 2022-0 3-26 00:00: 00 No Dose Unknown 2022-0 3-26 00:00: 00 No Dose Unknown 2022-0 3-26 00:00: 00 No Dose Unknown 2022-0 3-26 00:00: 00 No Dose Unknown 2022-0 3-26 00:00: 00 No Dose Unknown 2022-0 3-26 00:00: 00 No Dose Unknown 2022-0 3-26 00:00: 00 No Dose Unknown 2022-0 3-26 00:00: 00 No Dose Unknown 2022-0 3-26 00:00: 00 No Dose Unknown 2022-0 3-26 00:00: 00 No Dose Unknown 2022-0 3-26 00:00: 00 No Dose Unknown 2022-0 3-26 00:00: 00 No Dose Unknown 2022-0 3-26 00:00: 00 No Dose Unknown 2022-0 3-26 00:00: 00 No Dose Unknown 2022-0 3-26 00:00: 00 No Dose Unknown 2022-0 3-26 00:00: 00 No Dose Unknown 2022-0 3-26 00:00: 00 No Dose Unknown 2022-0 3-26 00:00: 00 No Dose Unknown 2022-0 3-26 00:00: 00 No Dose Unknown 2022-0 3-26 00:00: 00 No Dose Unknown 2022-0 3-26 00:00: 00 No Dose Unknown 2022-0 3-26 00:00: 00 No Dose Unknown 2022-0 3-26 00:00: 00 No Dose Unknown 2022-0 3-26 00:00: 00 No Dose Unknown 2022-0 3-26 00:00: 00 No Dose Unknown 2022-0 3-26 00:00: 00 No Dose Unknown 2022-0 3-26 00:00: 00 No Dose Unknown 2022-0 3-26 00:00: 00 No Dose Unknown 2022-0 3-26 00:00: 00 No Dose Unknown 2022-0 3-26 00:00: 00 No Dose Unknown 2022-0 3-26 00:00: 00 No Dose Unknown 2022-0 3-26 00:00: 00 No Dose Unknown 2022-0 3-26 00:00: 00 No Dose Unknown 2022-0 3-26 00:00: 00 No Dose Unknown 2022-0 3-26 00:00: 00 No Dose Unknown 2022-0 3-26 00:00: 00 No Dose Unknown 2022-0 3-26 00:00: 00 No Dose Unknown 2022-0 3-26 00:00: 00 No Dose Unknown 2022-0 3-26 00:00: 00 No Dose Unknown 2022-0 3-26 00:00: 00 No Dose Unknown 2022-0 3-26 00:00: 00 No Dose Unknown 2022-0 3-26 00:00: 00 No Dose Unknown 2022-0 3-26 00:00: 00 No Dose Unknown 2022-0 3-26 00:00: 00 No Dose Unknown 2022-0 3-26 00:00: 00 No Dose Unknown 2022-0 3-26 00:00: 00 No Dose Unknown 2022-0 3-26 00:00: 00 No Dose Unknown 2022-0 3-26 00:00: 00 No Dose Unknown 2022-0 3-26 00:00: 00 No Dose Unknown 2022-0 3-26 00:00: 00 No Dose Unknown 2022-0 3-26 00:00: 00 No Dose Unknown 2022-0 3-26 00:00: 00 No Dose Unknown 2022-0 3-26 00:00: 00 No Dose Unknown 2022-0 3-26 00:00: 00 No Dose Unknown 2022-0 3-26 00:00: 00 No Dose Unknown 2022-0 3-26 00:00: 00 No Dose Unknown 2022-0 3-26 00:00: 00 No Dose Unknown 2022-0 3-26 00:00: 00 No Dose Unknown 2022-0 3-26 00:00: 00 No Dose Unknown 2022-0 3-26 00:00: 00 No Dose Unknown 2022-0 3-26 00:00: 00 No Dose Unknown 2022-0 3-26 00:00: 00 No Dose Unknown 2022-0 3-26 00:00: 00 No Dose Unknown 2022-0 3-26 00:00: 00 No Dose Unknown 2022-0 3-26 00:00: 00 No Dose Unknown 2022-0 3-26 00:00: 00 No Dose Unknown 2022-0 3-26 00:00: 00 No Dose Unknown 2022-0 3-26 00:00: 00 No Dose Unknown 2022-0 3-26 00:00: 00 No Dose Unknown 2022-0 3-26 00:00: 00 No Dose Unknown 2022-0 3-26 00:00: 00 No Dose Unknown 2022-0 3-26 00:00: 00 No Dose Unknown 2022-0 3-26 00:00: 00 No Dose Unknown 2022-0 3-26 00:00: 00 No Dose Unknown 2022-0 3-26 00:00: 00 No Dose Unknown 2022-0 3-26 00:00: 00 No Dose Unknown 2022-0 3-26 00:00: 00 No Dose Unknown 2022-0 3-26 00:00: 00 No Dose Unknown 2022-0 3-26 00:00: 00 No Dose Unknown 2022-0 3-26 00:00: 00 No Dose Unknown 2022-0 3-26 00:00: 00 No Dose Unknown 2022-0 3-26 00:00: 00 No Dose Unknown 2022-0 3-25 00:00: 00 No Dose Unknown 2022-0 3-25 00:00: 00 No Dose Unknown 2022-0 3-25 00:00: 00 No Dose Unknown 2022-0 3-25 00:00: 00 No Dose Unknown 2022-0 3-25 00:00: 00 No Dose Unknown 2022-0 3-25 00:00: 00 No Dose Unknown 2022-0 3-25 00:00: 00 No Dose Unknown 2022-0 3-25 00:00: 00 No Dose Unknown 2022-0 3-25 00:00: 00 No Dose Unknown 2022-0 3-25 00:00: 00 No Dose Unknown 2022-0 3-25 00:00: 00 No Dose Unknown 2022-0 3-25 00:00: 00 No Dose Unknown 2022-0 3-25 00:00: 00 No Dose Unknown 2022-0 3-25 00:00: 00 No Dose Unknown 2022-0 3-25 00:00: 00 No Dose Unknown 2022-0 3-25 00:00: 00 No Dose Unknown 2022-0 3-25 00:00: 00 No Dose Unknown 2022-0 3-25 00:00: 00 No Dose Unknown 2022-0 3-25 00:00: 00 No Dose Unknown 2022-0 3-25 00:00: 00 No Dose Unknown 2022-0 3-25 00:00: 00 No Dose Unknown 2022-0 3-25 00:00: 00 No Dose Unknown 2022-0 3-25 00:00: 00 No Dose Unknown 2022-0 3-25 00:00: 00 No Dose Unknown 2022-0 3-25 00:00: 00 No Dose Unknown 2022-0 3-25 00:00: 00 No Dose Unknown 2022-0 3-25 00:00: 00 No Dose Unknown 2022-0 3-25 00:00: 00 No Dose Unknown 2022-0 3-25 00:00: 00 No Dose Unknown 2022-0 3-25 00:00: 00 No Dose Unknown 2022-0 3-25 00:00: 00 No Dose Unknown 2022-0 3-25 00:00: 00 No Dose Unknown 2022-0 3-25 00:00: 00 No Dose Unknown 2022-0 3-25 00:00: 00 No Dose Unknown 2022-0 3-25 00:00: 00 No Dose Unknown 2022-0 3-25 00:00: 00 No Dose Unknown 2022-0 3-25 00:00: 00 No Dose Unknown 2022-0 3-25 00:00: 00 No Dose Unknown 2022-0 3-25 00:00: 00 No Dose Unknown 2022-0 3-25 00:00: 00 No Dose Unknown 2022-0 3-25 00:00: 00 No Dose Unknown 2022-0 3-25 00:00: 00 No Dose Unknown 2022-0 325 00:00: 00 No Dose Unknown 3 00:00: 00 No Dose Unknown 3 00:00: 00 No Dose Unknown 3 00:00: 00 No Dose Unknown 3 00:00: 00 No Dose Unknown 3 00:00: 00 No Dose Unknown 3 00:00: 00 No Lexapro 10 mg tablet 06-15 00:00: 00 No 1mg amoxicillin 500 mg tablet 2020-05 00:00: 00 No 1mg benzocaine 20 % mucosal aerosol spray 2020-05 00:00: 00 No 1% Claritin 10 mg tablet 2020-05 00:00: 00 No 1mg Dose Unknown 2020-05 00:00: 00 No Tessalon Perles 100 mg capsule 2020-05 00:00: 00 No 1mg sertraline 25 mg tablet 12-30 00:00: 00 No 1mg Strattera 40 mg capsule 12-30 00:00: 00 No 1mg sertraline 25 mg tablet 12-15 00:00: 00 No 1mg Strattera 40 mg capsule 12-15 00:00: 00 No 1mg Strattera 60 mg capsule 2014-05 0 00:00: 00 No 1mg Strattera 60 mg capsule 01-14 00:00: 00 No 1mg Bactrim DS 800 mg-160 mg tablet 12-30 00:00: 00 No 1mg metronidazo le 500 mg tablet 12-14 00:00: 00 No 1mg Strattera 60 mg capsule 09-24 00:00: 00 No 1mg Strattera 60 mg capsule 07-30 00:00: 00 No 1mg Strattera 60 mg capsule 07-30 00:00: 00 No 1mg prednisone 10 mg tablet 07-04 00:00: 00 No 1mg Vital Signs Vital Name Observation Time Observation Value Comments S ource BP Systolic 2022-03-23 11:35:00 120 mm[Hg] BP [...] /min Respiratory Rate 2018-09-19 10:34:00 16.00 /min Plan of Care Planned Activity Planned Date Details Comments Source Goal Plan of Care Note [code = 94370-7] Goal Plan of Care Note [code = 17460-0] Goal Plan of Care Note [code = 81350-8] Goal Plan of Care Note [code = 31664-5] Goal Plan of Care Note [code = 02211-8] Goal Plan of Care Note [code = 45335-1] Goal Plan of Care Note [code = 41108-8] Goal Plan of Care Note [code = 27461-1] Goal Plan of Care Note [code = 41763-1] Goal Plan of Care Note [code = 24727-7] Goal Plan of Care Note [code = 73995-9] Goal Plan of Care Note [code = 99298-6] Goal Plan of Care Note [code = 25988-7] Goal Plan of Care Note [code = 04775-8] Goal Plan of Care Note [code = 46220-7] Goal Plan of Care Note [code = 67858-8] Goal Plan of Care Note [code = 51241-0] Goal Plan of Care Note [code = 77527-2] Goal Plan of Care Note [code = 10169-3] Goal Plan of Care Note [code = 21284-0] Goal Plan of Care Note [code = 21616-2] Goal Plan of Care Note [code = 48327-7] Goal Plan of Care Note [code = 69933-9] Goal Plan of Care Note [code = 70972-7] Goal Plan of Care Note [code = 04620-4] Goal Plan of Care Note [code = 12268-3] Goal Plan of Care Note [code = 62601-5] Goal Plan of Care Note [code = 84978-8] Goal Plan of Care Note [code = 40564-4] Goal Plan of Care Note [code = 81435-8] Goal Plan of Care Note [code = 34415-0] Goal Plan of Care Note [code = 04527-1] Goal Plan of Care Note [code = 52373-4] Goal Plan of Care Note [code = 52606-0] Encounters Start Date/Time End Date/Time Encounter Type Admission Type Attending Clinicians [facility] Care Department Encounter ID Source 2022-09-12 17:43:57 2022-09-12 17:43:57 Outpatient [facility] [id number] Rhett Spring 2022-09-11 16:57:15 2022-09-11 16:57:15 Outpatient [facility] [id number] Rhett Spring 2022-06-03 11:20:45 2022-06-03 11:20:45 Outpatient [facility] [id number] Rhett Spring 2022-03-23 11:23:27 2022-03-23 11:23:27 Outpatient [facility] [id number] Rhett Spring 2022-03-23 00:00:00 2022-03-23 00:00:00 Outpatient Visit [id number] Results Test Description Test Time Test Comments Results Result Co mments Source PAP TEST, THINPREP, [id number] 00:00:00* Test Item Value Reference Range Interpretation Comme nts SOURCE: (test code = 8001) Cervical/Endocervical SLIDES: (test code = 8011) 1 LMP: (test code = 8021) 08/12/2021 SPECIMEN ADEQUACY: (test code = 59283) (NOTE) INTERPRETATION: (test code = 67623) NILM/NO EPITH. ABNORMALITY;SEE BELOW OTHER COMMENTS: (test code = 8081) (NOTE) PORT DRIER: (test code = 8101) VIOLET Connelly(ASCP)IAC QC TECHNOLOGIST: (test code = 8111) VIOLET NARAYANAN(ASCP) LOCATION: (test code = 26296) (NOTE) CPT: (test code = 8140) (NOTE) PAP TEST, THINPREP, [id number] 00:00:00* Test Item Value Reference Range Interpretation Comme nts SOURCE: (test code = 8001) Cervical/Endocervical SLIDES: (test code = 8011) 1 LMP: (test code = 8021) 08/12/2021 SPECIMEN ADEQUACY: (test code = 40081) (NOTE) INTERPRETATION: (test code = 75329) NILM/NO EPITH. ABNORMALITY;SEE BELOW OTHER COMMENTS: (test code = 8081) (NOTE) PORT DRIER: (test code = 8101) VIOLET Connelly(ASCP)IAC QC TECHNOLOGIST: (test code = 8111) VIOLET NARAYANAN(ASCP) LOCATION: (test code = 40267) (NOTE) CPT: (test code = 8140) (NOTE) CT/NG, TMA, [id number] 19:15:55* Test Item Value Reference Range Interpretation Comme nts GONORRHEA, TMA (test code = 32956) NEGATIVE NEGATIVE Assay methodolog y is nucleic acid amplification by piece cutter mediated amplification (TMA) utilizing the Aptima Combo 2 Assay. CHLAMYDIA, TMA (test code = 48916) NEGATIVE NEGATIVE Assay methodolog y is nucleic acid amplification by piece cutter mediated amplification (TMA) utilizing the Aptima Combo 2 Assay. HPV HIGH RISK WITH GENOTYPE, [id number] 15:56:35* Test Item Value Reference Range Interpretation Comme nts HPV HIGH RISK INTERP (test code = 76521) POSITIVE NEGATIVE A HPV 16 (test code = 42964) NEGATIVE HPV 18 (test code = 89066) NEGATIVE HPV, HR, OTHER GENOTYPES (test code = 99694) POSITIVE A Testing methodol ogy is real-time PCR utilizing hydrolysis probes with the [employer] 4800 system. The test individually detects genotypes 16 and 18, as well as the other 12 high risk types (31,33,35,39,45,51,52,56 ,58,59,66,68). The expected result is negative. A negative result does not rule out the presence of HPV not included in the genotype set, a low level of infection or specimen sampling error. UNLESS OTHERWISE INDICATED, ALL TESTING PERFORMED [facility] [employer] [address] [place] [address] FILTER W[employer]ER [employer] PRESSER: HANNAH HERNÁNDEZ M.D. CLIA NUMBER [id number] [facility] [place]. [id number] GC AND CHLAMYDIA AMPLIFIED, [id number] 00:00:00* Test Item Value Reference Range Interpretation Comme nts GONORRHEA, TMA (test code = 64544) NEGATIVE CHLAMYDIA, TMA (test code = 92969) NEGATIVE GC AND CHLAMYDIA AMPLIFIED, [id number] 00:00:00* Test Item Value Reference Range Interpretation Comme nts GONORRHEA, TMA (test code = 47456) NEGATIVE CHLAMYDIA, TMA (test code = 86855) NEGATIVE HPV HIGH RISK WITH GENOTYPE, [id number] 00:00:00* Test Item Value Reference Range Interpretation Comme nts HPV HIGH RISK INTERP (test c ode = 34019) POSITIVE HPV 16 (test code = 43082) NEGATIVE HPV 18 (test code = 79297) NEGATIVE HPV, HR, OTHER GENOTYPES (te st code = 54519) POSITIVE HPV HIGH RISK WITH GENOTYPE, [id number] 00:00:00* Test Item Value Reference Range Interpretation Comme nts HPV HIGH RISK INTERP (test c ode = 14659) POSITIVE HPV 16 (test code = 61180) NEGATIVE HPV 18 (test code = 27981) NEGATIVE HPV, HR, OTHER GENOTYPES (te st code = 10423) POSITIVE LIPID [id number] 04:09:03* Test Item Value Reference Range Interpretation Comme nts CHOLESTEROL (test code = 2210) 263 MG/DL <200 H TRIGLYCERIDES (test code = 2232) 85 MG/DL <150 HDL CHOLESTEROL (test code = 2220) 52 MG/DL >39 CALC LDL CHOL (test code = 2237) 192 MG/DL <100 H NOTE: CALCULATED LDL IS BASED ON CHRISTIAN-GREWAL METHOD WHICHINCLUDES ADJUSTABLE TRIGLYCERIDE:VLDL CHOLESTEROL RATIO.THIS FACTOR VARIES BY MEASURED TRIGLYCERIDE AND NON-HDLCHOLESTEROL CONCENTRATIONS WITH INCREASED CALCULATED LDL SEENIN HIGHER TRIGLYCERIDE OR LOWER NON-HDL SPECIMENS. FOR MOREINFORMATION, SEE CLIENT ANNOUNCEMENT AT [email or web address] RISK RATIO LDL/HDL (test code = 2237) 3.69 RATIO <3.22 H COMPREHENSIVE METABOLIC [id number] 04:09:03* Test Item Value Reference Range Interpretation Comme nts GLUCOSE (test code = 2216) 78 MG/DL 70-99 BUN (test code = 2207) 16 MG/DL 6-20 CREATININE (test code = 2213) 0.75 MG/DL 0.60-1.30 eGFR (2020 CKD-EPI) (test code = ) 113 ML/MIN/1.73 >60 CALC BUN/CREAT (test code = 2234) 21 RATIO 6-28 SODIUM (test code = 2230) 142 MEQ/L 133-146 POTASSIUM (test code = 2227) 4.5 MEQ/L 3.5-5.4 CHLORIDE (test code = 2214) 105 MEQ/L 95-107 CARBON DIOXIDE (test code = 2205) 22 MEQ/L 19-31 CALCIUM (test code = 2208) 9.3 MG/DL 8.5-10.5 PROTEIN, TOTAL (test code = 2228) 7.5 G/DL 6.1-8.3 ALBUMIN (test code = 2200) 4.6 G/DL 3.5-5.2 CALC GLOBULIN (test code = 2240) 2.9 G/DL 1.9-3.7 CALC A/G RATIO (test code = 223) 1.6 RATIO 1.0-2.6 BILIRUBIN, TOTAL (test code = 2206) 1.0 MG/DL See_Comment [Automated me ssage] The system which generated this result transmitted reference range: <=1.2. The reference range was not used to interpret this result as normal/abnormal. ALKALINE PHOSPHATASE (test code = 2203) 52 U/L 40-112 AST (test code = 2218) 19 U/L 9-40 ALT (test code = 2219) 13 U/L 5-40 UNLESS OTHERWISE INDICATED, ALL TESTING PERFORMED [facility] [employer] [employer] [address] [place] [address] FILTER WASHER AND PRESSER: HANNAH HERNÁNDEZ M.D. CLIA NUMBER [id number] [facility] [place]. [id number] HEMOGLOBIN [id number] 03:55:46* Test Item Value Reference Range Interpretation Comme nts HEMOGLOBIN A1c (test code = 76502) 5.5 % 4.2-5.6 CBC W/AUTO DIFF WITH [id number] 03:05:16* Test Item Value Reference Range Interpretation Comme nts WBC (test code = 1001) 5.1 K/UL 3.5-11.0 RBC (test code = 1002) 4.62 M/UL 3.80-5.40 HEMOGLOBIN (test code = 1003) 13.3 G/DL 11.5-15.5 HEMATOCRIT (test code = 1004) 40.7 % 34.0-45.0 MCV (test code = 1005) 88.1 fL 80.0-99.0 MCH (test code = 1006) 28.8 PG 25.0-33.0 MCHC (test code = 1007) 32.7 G/DL 31.0-36.0 RDW (test code = 1038) 13.3 % 11.5-15.0 NEUTROPHILS (test code = 1008) 51.0 % LYMPHOCYTES (test code = 1010) 38.9 % MONOCYTES (test code = 1011) 7.1 % EOSINOPHILS (test code = 1012) 2.0 % BASOPHILS (test code = 1013) 0.8 % IMMATURE GRANULOCYTES (test code = 1036) 0.2 % NUCLEATED RBCS (test code = 1065) 0.0 /100 WBC'S See_Comment [Automated messa ge] The system which generated this result transmitted reference range: 0.0. The reference range was not used to interpret this result as normal/abnormal. PLATELET COUNT (test code = 1015) 303 K/UL 130-400 ABSOLUTE NEUTROPHILS (test code = 1066) 2.60 K/UL 1.50-7.50 ABSOLUTE LYMPHOCYTES (test code = 1067) 1.98 K/UL 1.00-4.00 ABSOLUTE MONOCYTES (test code = 1068) 0.36 K/UL 0.20-1.00 ABSOLUTE EOSINOPHILS (test code = 1040) 0.10 K/UL 0.00-0.50 ABSOLUTE BASOPHILS (test code = 1069) 0.04 K/UL 0.00-0.20 ABS IMMATURE GRANULOCYTES (test code = 1020) 0.01 K/UL 0.00-0.10 ABS NUCLEATED RBCS (test code = 82721) 0.00 K/UL 0.00-0.11 CBC W/AUTO [id number] 00:00:00* Test Item Value Reference Range Interpretation Comme nts WBC (test code = 1001) 5.1 K/UL [...] = 1013) 0.8 % IMMATURE GRANULOCYTES (test code = 1036) 0.2 % NUCLEATED RBCS (test code = 1065) 0.0 /100WBC'S PLATELET COUNT (test code = 1015) 303 K/UL ABSOLUTE NEUTROPHILS (test c ode = 1066) 2.60 K/UL ABSOLUTE LYMPHOCYTES (test c ode = 1067) 1.98 K/UL ABSOLUTE MONOCYTES (test cod e = 1068) 0.36 K/UL ABSOLUTE EOSINOPHILS (test c ode = 1040) 0.10 K/UL ABSOLUTE BASOPHILS (test cod e = 1069) 0.04 K/UL ABS IMMATURE GRANULOCYTES (t est code = 1020) 0.01 K/UL ABS NUCLEATED RBCS (test cod e = 03002) 0.00 K/UL CBC W/AUTO [id number] 00:00:00* Test Item Value Reference Range Interpretation Comme nts WBC (test code = 1001) 5.1 K/UL [...] = 1013) 0.8 % IMMATURE GRANULOCYTES (test code = 1036) 0.2 % NUCLEATED RBCS (test code = 1065) 0.0 /100WBC'S PLATELET COUNT (test code = 1015) 303 K/UL ABSOLUTE NEUTROPHILS (test c ode = 1066) 2.60 K/UL ABSOLUTE LYMPHOCYTES (test c ode = 1067) 1.98 K/UL ABSOLUTE MONOCYTES (test cod e = 1068) 0.36 K/UL ABSOLUTE EOSINOPHILS (test c ode = 1040) 0.10 K/UL ABSOLUTE BASOPHILS (test cod e = 1069) 0.04 K/UL ABS IMMATURE GRANULOCYTES (t est code = 1020) 0.01 K/UL ABS NUCLEATED RBCS (test cod e = 06003) 0.00 K/UL CBC W/AUTO [id number] 00:00:00* Test Item Value Reference Range Interpretation Comme nts WBC (test code = 1001) 5.1 K/UL [...] = 1013) 0.8 % IMMATURE GRANULOCYTES (test code = 1036) 0.2 % NUCLEATED RBCS (test code = 1065) 0.0 /100WBC'S PLATELET COUNT (test code = 1015) 303 K/UL ABSOLUTE NEUTROPHILS (test c ode = 1066) 2.60 K/UL ABSOLUTE LYMPHOCYTES (test c ode = 1067) 1.98 K/UL ABSOLUTE MONOCYTES (test cod e = 1068) 0.36 K/UL ABSOLUTE EOSINOPHILS (test c ode = 1040) 0.10 K/UL ABSOLUTE BASOPHILS (test cod e = 1069) 0.04 K/UL ABS IMMATURE GRANULOCYTES (t est code = 1020) 0.01 K/UL ABS NUCLEATED RBCS (test cod e = 65831) 0.00 K/UL HEMOGLOBIN [id number] 00:00:00* Test Item Value Reference Range Interpretation Comme nts HEMOGLOBIN A1c (test code = 91312) 5.5 % HEMOGLOBIN [id number] 00:00:00* Test Item Value Reference Range Interpretation Comme nts HEMOGLOBIN A1c (test code = 85481) 5.5 % HEMOGLOBIN [id number] 00:00:00* Test Item Value Reference Range Interpretation Comme nts HEMOGLOBIN A1c (test code = 96721) 5.5 % LIPID [id number] 00:00:00* Test Item Value Reference Range Interpretation Comme nts CHOLESTEROL (test code = 2210) 263 MG/DL TRIGLYCERIDES (test code = 2232) 85 MG/DL HDL CHOLESTEROL (test code = 2220) 52 MG/DL CALC LDL CHOL (test code = 2237) 192 MG/DL RISK RATIO LDL/HDL (test cod e = 2238) 3.69 RATIO LIPID [id number] 00:00:00* Test Item Value Reference Range Interpretation Comme nts CHOLESTEROL (test code = 2210) 263 MG/DL TRIGLYCERIDES (test code = 2232) 85 MG/DL HDL CHOLESTEROL (test code = 2220) 52 MG/DL CALC LDL CHOL (test code = 2237) 192 MG/DL RISK RATIO LDL/HDL (test cod e = 2238) 3.69 RATIO COMPREHENSIVE METABOLIC [id number] 00:00:00* Test Item Value Reference Range Interpretation Comme nts GLUCOSE (test code = 2217) 78 MG/DL BUN (test code = 2208) 16 MG/DL CREATININE (test code = 2214) 0.75 MG/DL eGFR (2020 CKD-EPI) (test code = 93446) 113 ML/MIN/1.73 CALC BUN/CREAT (test code = 2235) 21 RATIO SODIUM (test code = 2231) 142 MEQ/L POTASSIUM (test code = 2228) 4.5 MEQ/L CHLORIDE (test code = 2215) 105 MEQ/L CARBON DIOXIDE (test code = 2206) 22 MEQ/L CALCIUM (test code = 2209) 9.3 MG/DL PROTEIN, TOTAL (test code = 2229) 7.5 G/DL ALBUMIN (test code = 2201) 4.6 G/DL CALC GLOBULIN (test code = 2240) 2.9 G/DL CALC A/G RATIO (test code = 2234) 1.6 RATIO BILIRUBIN, TOTAL (test code = 2207) 1.0 MG/DL ALKALINE PHOSPHATASE (test code = 2204) 52 U/L AST (test code = 2218) 19 U/L ALT (test code = 2219) 13 U/L COMPREHENSIVE METABOLIC [id number] 00:00:00* Test Item Value Reference Range Interpretation Comme nts GLUCOSE (test code = 2217) 78 MG/DL BUN (test code = 2208) 16 MG/DL CREATININE (test code = 2214) 0.75 MG/DL eGFR (2020 CKD-EPI) (test code = 60729) 113 ML/MIN/1.73 CALC BUN/CREAT (test code = 2235) 21 RATIO SODIUM (test code = 2231) 142 MEQ/L POTASSIUM (test code = 2228) 4.5 MEQ/L CHLORIDE (test code = 2215) 105 MEQ/L CARBON DIOXIDE (test code = 2206) 22 MEQ/L CALCIUM (test code = 2209) 9.3 MG/DL PROTEIN, TOTAL (test code = 2229) 7.5 G/DL ALBUMIN (test code = 2201) 4.6 G/DL CALC GLOBULIN (test code = 2240) 2.9 G/DL CALC A/G RATIO (test code = 2234) 1.6 RATIO BILIRUBIN, TOTAL (test code = 2207) 1.0 MG/DL ALKALINE PHOSPHATASE (test code = 2204) 52 U/L AST (test code = 2218) 19 U/L ALT (test code = 2219) 13 U/L CBC W/AUTO [id number] 00:00:00* Test Item Value Reference Range Interpretation Comme nts WBC (test code = 1001) 4.5 K/UL [...] = 1013) 0.9 % IMMATURE GRANULOCYTES (test code = 1036) 0.2 % NUCLEATED RBCS (test code = 1065) 0.0 /100WBC'S PLATELET COUNT (test code = 1015) 261 K/UL ABSOLUTE NEUTROPHILS (test c ode = 1066) 2.74 K/UL ABSOLUTE LYMPHOCYTES (test c ode = 1067) 1.37 K/UL ABSOLUTE MONOCYTES (test cod e = 1068) 0.28 K/UL ABSOLUTE EOSINOPHILS (test c ode = 1040) 0.08 K/UL ABSOLUTE BASOPHILS (test cod e = 1069) 0.04 K/UL ABS IMMATURE GRANULOCYTES (t est code = 1020) 0.01 K/UL ABS NUCLEATED RBCS (test cod e = 53633) 0.00 K/UL CBC W/AUTO [id number] 00:00:00* Test Item Value Reference Range Interpretation Comme nts WBC (test code = 1001) 4.5 K/UL [...] = 1013) 0.9 % IMMATURE GRANULOCYTES (test code = 1036) 0.2 % NUCLEATED RBCS (test code = 1065) 0.0 /100WBC'S PLATELET COUNT (test code = 1015) 261 K/UL ABSOLUTE NEUTROPHILS (test c ode = 1066) 2.74 K/UL ABSOLUTE LYMPHOCYTES (test c ode = 1067) 1.37 K/UL ABSOLUTE MONOCYTES (test cod e = 1068) 0.28 K/UL ABSOLUTE EOSINOPHILS (test c ode = 1040) 0.08 K/UL ABSOLUTE BASOPHILS (test cod e = 1069) 0.04 K/UL ABS IMMATURE GRANULOCYTES (t est code = 1020) 0.01 K/UL ABS NUCLEATED RBCS (test cod e = 79550) 0.00 K/UL CBC W/AUTO [id number] 00:00:00* Test Item Value Reference Range Interpretation Comme nts WBC (test code = 1001) 4.5 K/UL [...] = 1013) 0.9 % IMMATURE GRANULOCYTES (test code = 1036) 0.2 % NUCLEATED RBCS (test code = 1065) 0.0 /100WBC'S PLATELET COUNT (test code = 1015) 261 K/UL ABSOLUTE NEUTROPHILS (test c ode = 1066) 2.74 K/UL ABSOLUTE LYMPHOCYTES (test c ode = 1067) 1.37 K/UL ABSOLUTE MONOCYTES (test cod e = 1068) 0.28 K/UL ABSOLUTE EOSINOPHILS (test c ode = 1040) 0.08 K/UL ABSOLUTE BASOPHILS (test cod e = 1069) 0.04 K/UL ABS IMMATURE GRANULOCYTES (t est code = 1020) 0.01 K/UL ABS NUCLEATED RBCS (test cod e = 68445) 0.00 K/UL COMPREHENSIVE METABOLIC [id number] 00:00:00* Test Item Value Reference Range Interpretation Comme nts GLUCOSE (test code = 2217) 88 MG/DL BUN (test code = 2208) 13 MG/DL CREATININE (test code = 2214) 0.74 MG/DL eGFR AMER. (test cod e = 20177) 131 ML/MIN/1.73 eGFR NON- AMER. (test code = 37647) 113 ML/MIN/1.73 CALC BUN/CREAT (test code = 2235) 18 RATIO SODIUM (test code = 2231) 139 MEQ/L POTASSIUM (test code = 2228) 4.2 MEQ/L CHLORIDE (test code = 2215) 103 MEQ/L CARBON DIOXIDE (test code = 2206) 24 MEQ/L CALCIUM (test code = 2209) 9.5 MG/DL PROTEIN, TOTAL (test code = 2229) 7.1 G/DL ALBUMIN (test code = 2201) 4.5 G/DL CALC GLOBULIN (test code = 2240) 2.6 G/DL CALC A/G RATIO (test code = 2234) 1.7 RATIO BILIRUBIN, TOTAL (test code = 2207) 0.9 MG/DL ALKALINE PHOSPHATASE (test code = 2204) 64 U/L AST (test code = 2218) 17 U/L ALT (test code = 2219) 14 U/L COMPREHENSIVE METABOLIC [id number] 00:00:00* Test Item Value Reference Range Interpretation Comme nts GLUCOSE (test code = 2217) 88 MG/DL BUN (test code = 2208) 13 MG/DL CREATININE (test code = 2214) 0.74 MG/DL eGFR AMER. (test cod e = 40777) 131 ML/MIN/1.73 eGFR NON- AMER. (test code = 47375) 113 ML/MIN/1.73 CALC BUN/CREAT (test code = 2235) 18 RATIO SODIUM (test code = 2231) 139 MEQ/L POTASSIUM (test code = 2228) 4.2 MEQ/L CHLORIDE (test code = 2215) 103 MEQ/L CARBON DIOXIDE (test code = 2206) 24 MEQ/L CALCIUM (test code = 2209) 9.5 MG/DL PROTEIN, TOTAL (test code = 2229) 7.1 G/DL ALBUMIN (test code = 2201) 4.5 G/DL CALC GLOBULIN (test code = 2240) 2.6 G/DL CALC A/G RATIO (test code = 2234) 1.7 RATIO BILIRUBIN, TOTAL (test code = 2207) 0.9 MG/DL ALKALINE PHOSPHATASE (test code = 2204) 64 U/L AST (test code = 2218) 17 U/L ALT (test code = 2219) 14 U/L [id number] 00:00:00* Test Item Value Reference Range Interpretation Comme nts TSH, THIRD GENERATION (test code = 2821) 1.750 UIU/ML [id number] 00:00:00* Test Item Value Reference Range Interpretation Comme nts TSH, THIRD GENERATION (test code = 2821) 1.750 UIU/ML [id number] 00:00:00* Test Item Value Reference Range Interpretation Comme nts TSH, THIRD GENERATION (test code = 2821) 1.750 UIU/ML SARS-CoV-2 (COVID-19) by RT-PCR (HIGH RISK)[id number] 00:00:00* Test Item Value Reference Range Interpretation Comme nts SARS-CoV-2 INTERPRETATION (test code = 67105) NEGATIVE SOURCE (test code = 56778) NASOPHARYNGEAL SARS-CoV-2 (COVID-19) by RT-PCR (HIGH RISK)2019-11-25 00:00:00* Test Item Value Reference Range Interpretation Comme nts SARS-CoV-2 INTERPRETATION (test code = 15081) NEGATIVE SOURCE (test code = 21800) NASOPHARYNGEAL HEMOGLOBIN [id number] 00:00:00* Test Item Value Reference Range Interpretation Comme nts HEMOGLOBIN A1c (test code = 31451) 5.4 % HEMOGLOBIN [id number] 00:00:00* Test Item Value Reference Range Interpretation Comme nts HEMOGLOBIN A1c (test code = 19208) 5.4 % COMPREHENSIVE METABOLIC [id number] 00:00:00* Test Item Value Reference Range Interpretation Comme nts GLUCOSE (test code = 2217) 96 MG/DL BUN (test code = 2208) 13 MG/DL CREATININE (test code = 2214) 1.08 MG/DL eGFR AMER. (test cod e = 04513) 84 ML/MIN/1.73 eGFR NON- AMER. (test code = 19054) 73 ML/MIN/1.73 CALC BUN/CREAT (test code = 2235) 12 RATIO SODIUM (test code = 2231) 142 MEQ/L POTASSIUM (test code = 2228) 4.3 MEQ/L CHLORIDE (test code = 2215) 107 MEQ/L CARBON DIOXIDE (test code = 2206) 25 MEQ/L CALCIUM (test code = 2209) 9.6 MG/DL PROTEIN, TOTAL (test code = 2229) 6.7 G/DL ALBUMIN (test code = 2201) 4.4 G/DL CALC GLOBULIN (test code = 2240) 2.3 G/DL CALC A/G RATIO (test code = 2234) 1.9 RATIO BILIRUBIN, TOTAL (test code = 2207) 0.9 MG/DL ALKALINE PHOSPHATASE (test code = 2204) 57 U/L AST (test code = 2218) 21 U/L ALT (test code = 2219) 13 U/L COMPREHENSIVE METABOLIC [id number] 00:00:00* Test Item Value Reference Range Interpretation Comme nts GLUCOSE (test code = 2217) 96 MG/DL BUN (test code = 2208) 13 MG/DL CREATININE (test code = 2214) 1.08 MG/DL eGFR AMER. (test cod e = 30874) 84 ML/MIN/1.73 eGFR NON- AMER. (test code = 21352) 73 ML/MIN/1.73 CALC BUN/CREAT (test code = 2235) 12 RATIO SODIUM (test code = 2231) 142 MEQ/L POTASSIUM (test code = 2228) 4.3 MEQ/L CHLORIDE (test code = 2215) 107 MEQ/L CARBON DIOXIDE (test code = 2206) 25 MEQ/L CALCIUM (test code = 2209) 9.6 MG/DL PROTEIN, TOTAL (test code = 2229) 6.7 G/DL ALBUMIN (test code = 2201) 4.4 G/DL CALC GLOBULIN (test code = 2240) 2.3 G/DL CALC A/G RATIO (test code = 2234) 1.9 RATIO BILIRUBIN, TOTAL (test code = 2207) 0.9 MG/DL ALKALINE PHOSPHATASE (test code = 2204) 57 U/L AST (test code = 2218) 21 U/L ALT (test code = 2219) 13 U/L LIPID [id number] 00:00:00* Test Item Value Reference Range Interpretation Comme nts CHOLESTEROL (test code = 2210) 230 MG/DL TRIGLYCERIDES (test code = 2232) 145 MG/DL HDL CHOLESTEROL (test code = 2220) 50 MG/DL CALC LDL CHOL (test code = 2237) 151 MG/DL RISK RATIO LDL/HDL (test cod e = 2238) 3.02 RATIO LIPID [id number] 00:00:00* Test Item Value Reference Range Interpretation Comme nts CHOLESTEROL (test code = 2210) 230 MG/DL TRIGLYCERIDES (test code = 2232) 145 MG/DL HDL CHOLESTEROL (test code = 2220) 50 MG/DL CALC LDL CHOL (test code = 2237) 151 MG/DL RISK RATIO LDL/HDL (test cod e = 2238) 3.02 RATIO CBC W/AUTO [id number] 00:00:00* Test Item Value Reference Range Interpretation Comme nts WBC (test code = 1001) 5.3 K/UL [...] code = 1015) 264 K/UL CBC W/AUTO [id number] 00:00:00* Test Item Value Reference Range Interpretation Comme nts WBC (test code = 1001) 5.3 K/UL [...] code = 1015) 264 K/UL CBC W/AUTO [id number] 00:00:00* Test Item Value Reference Range Interpretation Comme nts WBC (test code = 1001) 5.3 K/UL [...] (test code = 1015) 264 K/UL HEMOGLOBIN [id number] 00:00:00* Test Item Value Reference Range Interpretation Comme nts HEMOGLOBIN A1c (test code = 84645) 5.4 % HEMOGLOBIN [id number] 00:00:00* Test Item Value Reference Range Interpretation Comme nts HEMOGLOBIN A1c (test code = 31455) 5.8 % HEMOGLOBIN [id number] 00:00:00* Test Item Value Reference Range Interpretation Comme nts HEMOGLOBIN A1c (test code = 87516) 5.8 % [id number] 00:00:00* Test Item Value Reference Range Interpretation Comme nts TSH (test code = 2821) 1.5 UIU/ML [id number] 00:00:00* Test Item Value Reference Range Interpretation Comme nts TSH (test code = 2821) 1.5 UIU/ML [id number] 00:00:00* Test Item Value Reference Range Interpretation Comme nts TSH (test code = 2821) 1.5 UIU/ML COMPREHENSIVE METABOLIC [id number] 00:00:00* Test Item Value Reference Range Interpretation Comme nts GLUCOSE (test code = 2217) 79 MG/DL BUN (test code = 2208) 14 MG/DL CREATININE (test code = 2214) 0.86 MG/DL eGFR AMER. (test cod e = 70626) 114 ML/MIN/1.73 eGFR NON- AMER. (test code = 49303) 98 ML/MIN/1.73 CALCULATED BUN/CREAT (test code = 2235) 16 RATIO SODIUM (test code = 2231) 141 MEQ/L POTASSIUM (test code = 2228) 4.2 MEQ/L CHLORIDE (test code = 2215) 105 MEQ/L CARBON DIOXIDE (test code = 2206) 26 MEQ/L CALCIUM (test code = 2209) 9.6 MG/DL PROTEIN, TOTAL (test code = 2229) 6.8 G/DL ALBUMIN (test code = 2201) 4.1 G/DL CALCULATED GLOBULIN (test code = 2240) 2.7 G/DL CALCULATED A/G RATIO (test code = 2234) 1.5 RATIO BILIRUBIN, TOTAL (test code = 2207) 0.8 MG/DL ALKALINE PHOSPHATASE (test code = 2204) 69 U/L SGOT (AST) (test code = 2218) 15 U/L SGPT (ALT) (test code = 2219) 14 U/L COMPREHENSIVE METABOLIC [id number] 00:00:00* Test Item Value Reference Range Interpretation Comme nts GLUCOSE (test code = 2217) 79 MG/DL BUN (test code = 2208) 14 MG/DL CREATININE (test code = 2214) 0.86 MG/DL eGFR AMER. (test cod e = 78380) 114 ML/MIN/1.73 eGFR NON- AMER. (test code = 22442) 98 ML/MIN/1.73 CALCULATED BUN/CREAT (test code = 2235) 16 RATIO SODIUM (test code = 2231) 141 MEQ/L POTASSIUM (test code = 2228) 4.2 MEQ/L CHLORIDE (test code = 2215) 105 MEQ/L CARBON DIOXIDE (test code = 2206) 26 MEQ/L CALCIUM (test code = 2209) 9.6 MG/DL PROTEIN, TOTAL (test code = 2229) 6.8 G/DL ALBUMIN (test code = 2201) 4.1 G/DL CALCULATED GLOBULIN (test code = 2240) 2.7 G/DL CALCULATED A/G RATIO (test code = 2234) 1.5 RATIO BILIRUBIN, TOTAL (test code = 2207) 0.8 MG/DL ALKALINE PHOSPHATASE (test code = 2204) 69 U/L SGOT (AST) (test code = 2218) 15 U/L SGPT (ALT) (test code = 2219) 14 U/L LIPID [id number] 00:00:00* Test Item Value Reference Range Interpretation Comme nts CHOLESTEROL (test code = 2210) 213 MG/DL TRIGLYCERIDES (test code = 2232) 100 MG/DL HDL CHOLESTEROL (test code = 2220) 63 MG/DL CALCULATED LDL CHOL (test co de = 2237) 130 MG/DL RISK RATIO LDL/HDL (test cod e = 2238) 2.06 RATIO LIPID [id number] 00:00:00* Test Item Value Reference Range Interpretation Comme nts CHOLESTEROL (test code = 2210) 213 MG/DL TRIGLYCERIDES (test code = 2232) 100 MG/DL HDL CHOLESTEROL (test code = 2220) 63 MG/DL CALCULATED LDL CHOL (test co de = 2237) 130 MG/DL RISK RATIO LDL/HDL (test cod e = 2238) 2.06 RATIO CBC W/AUTO [id number] 00:00:00* Test Item Value Reference Range Interpretation Comme nts WBC (test code = 1001) 5.2 K/UL [...] code = 1015) 262 K/UL CBC W/AUTO [id number] 00:00:00* Test Item Value Reference Range Interpretation Comme nts WBC (test code = 1001) 5.2 K/UL [...] code = 1015) 262 K/UL CBC W/AUTO [id number] 00:00:00* Test Item Value Reference Range Interpretation Comme nts WBC (test code = 1001) 5.2 K/UL [...] (test code = 1015) 262 K/UL HEMOGLOBIN [id number] 00:00:00* Test Item Value Reference Range Interpretation Comme nts HEMOGLOBIN A1c (test code = 36033) 5.8 % BASIC METABOLIC [id number] 00:00:00* Test Item Value Reference Range Interpretation Comme nts GLUCOSE (test code = 2217) 87 MG/DL BUN (test code = 2208) 15 MG/DL CREATININE (test code = 2214) 1.0 MG/DL eGFR AMER. (test cod e = 56450) 87 ML/MIN/1.73 eGFR NON- AMER. (test code = 21950) 72 ML/MIN/1.73 SODIUM (test code = 2231) 137 MEQ/L POTASSIUM (test code = 2228) 4.4 MEQ/L CHLORIDE (test code = 2215) 107 MEQ/L CARBON DIOXIDE (test code = 2206) 26 MEQ/L CALCIUM (test code = 2209) 9.8 MG/DL BASIC METABOLIC [id number] 00:00:00* Test Item Value Reference Range Interpretation Comme nts GLUCOSE (test code = 2217) 87 MG/DL BUN (test code = 2208) 15 MG/DL CREATININE (test code = 2214) 1.0 MG/DL eGFR AMER. (test cod e = 34674) 87 ML/MIN/1.73 eGFR NON- AMER. (test code = 97655) 72 ML/MIN/1.73 SODIUM (test code = 2231) 137 MEQ/L POTASSIUM (test code = 2228) 4.4 MEQ/L CHLORIDE (test code = 2215) 107 MEQ/L CARBON DIOXIDE (test code = 2206) 26 MEQ/L CALCIUM (test code = 2209) 9.8 MG/DL CBC W/AUTO [id number] 00:00:00* Test Item Value Reference Range Interpretation Comme nts WBC (test code = 1001) 5.7 K/UL [...] code = 1015) 280 K/UL CBC W/AUTO [id number] 00:00:00* Test Item Value Reference Range Interpretation Comme nts WBC (test code = 1001) 5.7 K/UL [...] code = 1015) 280 K/UL CBC W/AUTO [id number] 00:00:00* Test Item Value Reference Range Interpretation Comme nts WBC (test code = 1001) 5.7 K/UL [...] (test code = 1015) 280 K/UL OSMOLALITY, [id number] 00:00:00* Test Item Value Reference Range Interpretation Comme nts OSMOLALITY, SERUM (test code = 2044) 296 MOSM/KG OSMOLALITY, [id number] 00:00:00* Test Item Value Reference Range Interpretation Comme nts OSMOLALITY, SERUM (test code = 2045) 296 MOSM/KG
[2023-07-11 14:46] LABS: Absolute Lymphocytes (CBC) 1.3 K/uL (0.7-4.9); Lymphocytes % 23.9 % (15.3-44.8); MCV 88.9 fL (80-100); MPV 8.6 fL (7.6-11.3); Platelets 269 thou/uL (152-406); RBC Red Blood Cell Count 4.28 M/uL (3.86-4.86)
[2023-07-11 15:02] LABS: Potassium 3.7 mEq/L (3.5-5.1)
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
[2023-07-11 16:47] VITALS: BP 135/89; TEMP 98; O2SAT 100
== END ==
LOC: ER 13:59
DX: S16.1XXA Strain of muscle, fascia and tendon at neck level, initial encounter (principal); V49.49XA Driver injured in collision with other motor vehicles in traffic accident, initial encounter
CPT/HCPCS: 36415; 70450; 71250; 72125; 80048; 84703; 85025

== ENCOUNTER 2024-06-22 12:27 | Emergency (ER) | payer SELFPAY ==
--- OUTSIDE RECORDS SUMMARY | 2024-06-22 12:31 | XMS REPORT | Continuity of Care Document ---
Author Name Unknown Address [address] [place] [address] [facility] thconnect Address 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 Ordering Clinician Indication Dosage Frequency Signature (SIG) Comments Components Source TAKE 1 TABLET DAILY. 09-12 00:00: 00 10-01 00:00 :00 No 1 Rhett Spring TAKE 1 TABLET DAILY. 4-25 00:00: 00 10-01 00:00 :00 No 25 Rhett Michelle Spring TAKE 1 TABLET BY MOUTH EVERY 12 HOURS FOR 10 DAYS 2021-05 2-05 00:00: 00 10-01 00:00 :00 No Rhett F Swa Dose Unknown 5-17 00:00: 00 No Dose Unknown 0 5-17 00:00: 00 Yes Rhett F Saw Dose Unknown 0 4-07 00:00: 00 No Dose Unknown 0 4-07 00:00: 00 Yes Rhett F Saw Dose Unknown 4-06 00:00: 00 No Dose Unknown 0 4-06 00:00: 00 Yes Rhett F Saw Dose Unknown 4-05 00:00: 00 No Dose Unknown 0 4-05 00:00: 00 Yes Rhett F Saw Dose Unknown 4-04 00:00: 00 No Dose Unknown 0 4-04 00:00: 00 No Dose Unknown 2022-0 4-04 00:00: 00 Yes Rhett Spring Dose Unknown 2022-0 4-04 00:00: 00 Yes Rhett Spring Dose Unknown 2-0 4-02 00:00: 00 No Dose Unknown 2022-0 4-02 00:00: 00 No Dose Unknown 2022-0 4-02 00:00: 00 Yes Rhett Spring Dose Unknown 2022-0 4-02 00:00: 00 Yes Rhett Spring amoxicillin 875 mg-potassiu m clavulanate 125 mg tablet 2-0 4-01 00:00: 00 No 1mg Bromfed DM 2 mg-30 mg-10 mg/5 mL oral syrup 2-0 4-01 00:00: 00 No 10mg/5 mL Dose Unknown 2022-0 4-01 00:00: 00 No Dose Unknown 2022-0 4-01 00:00: 00 No Dose Unknown 2022-0 4-01 00:00: 00 No Dose Unknown 2022-0 4-01 00:00: 00 No Dose Unknown 2022-0 4-01 00:00: 00 No Dose Unknown 2022-0 4-01 00:00: 00 No amoxicillin 875 mg-potassiu m clavulanate 125 mg tablet 2-0 4-01 00:00: 00 Yes 1mg Rhett Spring Bromfed DM 2 mg-30 mg-10 mg/5 mL oral syrup 2021-0 4-01 00:00: 00 Yes 10mg/5 mL Rhett Spring Dose Unknown 2-0 4-01 00:00: 00 Yes Rhett Spring Dose Unknown 2-0 4-01 00:00: 00 Yes Rhett Spring Dose Unknown 2-0 4-01 00:00: 00 Yes Rhett Spring Dose Unknown 2-0 4-01 00:00: 00 Yes Rhett Spring Dose Unknown 2-0 4-01 00:00: 00 Yes Rhett Spring Dose Unknown 2022-0 4-01 00:00: 00 Yes Rhett Spring metronidazo le 500 mg tablet 2021-0 3-31 00:00: 00 No 1mg Dose Unknown 2-0 3-31 00:00: 00 No Dose Unknown 2022-0 3-31 00:00: 00 No Dose Unknown 2022-0 3-31 00:00: 00 No Dose Unknown 2022-0 3-31 00:00: 00 No Dose Unknown 2022-0 3-31 00:00: 00 No Dose Unknown 2022-0 3-31 00:00: 00 No metronidazo le 500 mg tablet 2022-0 3-31 00:00: 00 Yes 1mg Rhett Spring Dose Unknown 2022-0 3-31 00:00: 00 Yes Rhett Spring Dose Unknown 2022-0 3-31 00:00: 00 Yes Rhett Martinez Saw Dose Unknown 2022-0 3-31 00:00: 00 Yes Rhett Martinez Saw Dose Unknown 2022-0 3-31 00:00: 00 Yes Rhett Martinez Saw Dose Unknown 2022-0 3-31 00:00: 00 Yes Rhett Spring Dose Unknown 2022-0 3-31 00:00: 00 Yes Rhett Spring Dose Unknown 2022-0 3-30 00:00: 00 No Dose Unknown 2022-0 3-30 00:00: 00 No Dose Unknown 2022-0 3-30 00:00: 00 No Dose Unknown 2022-0 3-30 00:00: 00 No Dose Unknown 2022-0 3-30 00:00: 00 No Dose Unknown 2022-0 3-30 00:00: 00 No Dose Unknown 2022-0 3-30 00:00: 00 Yes Rhett Martinez Saw Dose Unknown 2022-0 3-30 00:00: 00 Yes Rhett Spring Dose Unknown 2022-0 3-30 00:00: 00 Yes Rhett Martinez Saw Dose Unknown 2022-0 3-30 00:00: 00 Yes Rhett Martinez Saw Dose Unknown 2022-0 3-30 00:00: 00 Yes Rhett Martinez Saw Dose Unknown 2022-0 3-30 00:00: 00 Yes Rhett Martinez Saw Dose Unknown 2022-0 3-27 00:00: 00 No Dose Unknown 2022-0 3-27 00:00: 00 No Dose Unknown 2022-0 3-27 00:00: 00 No Dose Unknown 2022-0 3-27 00:00: 00 No Dose Unknown 2022-0 3-27 00:00: 00 No Dose Unknown 2022-0 3-27 00:00: 00 No Dose Unknown 2022-0 3-27 00:00: 00 Yes Rhett Martinez Saw Dose Unknown 2022-0 3-27 00:00: 00 Yes Rhett Martinez Saw Dose Unknown 2022-0 3-27 00:00: 00 Yes Rhett Martinez Saw Dose Unknown 2022-0 3-27 00:00: 00 Yes Rhett Martinez Saw Dose Unknown 2022-0 3-27 00:00: 00 Yes Rhett Martinez Saw Dose Unknown 2022-0 3-27 00:00: 00 Yes Rhett Martinez Saw Dose Unknown 2022-0 3-26 00:00: 00 No Dose Unknown 2022-0 3-26 00:00: 00 No Dose Unknown 2022-0 3-26 00:00: 00 No Dose Unknown 2022-0 3-26 00:00: 00 No Dose Unknown 2022-0 3-26 00:00: 00 No Dose Unknown 2022-0 3-26 00:00: 00 No Dose Unknown 2022-0 3-26 00:00: 00 Yes Rhett Martinez Saw Dose Unknown 2022-0 3-26 00:00: 00 Yes Rhett Martinez Saw Dose Unknown 2022-0 3-26 00:00: 00 Yes Rhett Martinez Saw Dose Unknown 2022-0 3-26 00:00: 00 Yes Rhett Martinez Saw Dose Unknown 2022-0 3-26 00:00: 00 Yes Rhett Martinez Saw Dose Unknown 2022-0 3-26 00:00: 00 Yes Rhett Martinez Saw Dose Unknown 2022-0 3-25 00:00: 00 No Dose Unknown 2022-0 3-25 00:00: 00 No Dose Unknown 2022-0 3-25 00:00: 00 No Dose Unknown 2022-0 3-25 00:00: 00 No Dose Unknown 2022-0 3-25 00:00: 00 No Dose Unknown 2022-0 3-25 00:00: 00 No Dose Unknown 2022-0 3-25 00:00: 00 Yes Rhett Martinez Saw Dose Unknown 2022-0 3-25 00:00: 00 Yes Rhett Martinez Saw Dose Unknown 2022-0 3-25 00:00: 00 Yes Rhett Martinez Saw Dose Unknown 2022-0 3-25 00:00: 00 Yes Rhett F Saw Dose Unknown 2022-0 3-25 00:00: 00 Yes Rhett Martinez Saw Dose Unknown 2022-0 3-25 00:00: 00 Yes Rhett Spring Lexapro 10 mg tablet 06-15 00:00: 00 No 1mg Lexapro 10 mg tablet 06-15 00:00: 00 Yes 1mg Rhett Spring amoxicillin 500 mg tablet 2020-05 00:00: 00 No 1mg benzocaine 20 % mucosal aerosol spray 2020-05 00:00: 00 No 1% amoxicillin 500 mg tablet 2020-05 00:00: 00 Yes 1mg Rhett Spring benzocaine 20 % mucosal aerosol spray 2020-05 00:00: 00 Yes 1% Rhett Spring Dose Unknown 2020-05 00:00: 00 Yes Rhett Spring Tessalon Perles 100 mg capsule 2020-05 00:00: 00 Yes 1mg Rhett Spring Claritin 10 mg tablet 2020-05 00:00: 00 No 1mg Dose Unknown 2020-05 00:00: 00 No Tessalon Perles 100 mg capsule 2020-05 00:00: 00 No 1mg Claritin 10 mg tablet 2020-05 00:00: 00 Yes 1mg Rhett Spring sertraline 25 mg tablet 12-30 00:00: 00 Yes 1mg Rhett Spring Strattera 40 mg capsule 12-30 00:00: 00 Yes 1mg Rhett Spring sertraline 25 mg tablet 12-30 00:00: 00 No 1mg Strattera 40 mg capsule 12-30 00:00: 00 No 1mg sertraline 25 mg tablet 12-15 00:00: 00 Yes 1mg Rhett Spring Strattera 40 mg capsule 12-15 00:00: 00 Yes 1mg Rhett Spring sertraline 25 mg tablet 12-15 00:00: 00 No 1mg Strattera 40 mg capsule 12-15 00:00: 00 No 1mg Strattera 60 mg capsule 2014-05 0 00:00: 00 Yes 1mg Rhett Spring Strattera 60 mg capsule 2014-05 00:00: 00 No 1mg Strattera 60 mg capsule 01-14 00:00: 00 Yes 1mg Rhett Spring Strattera 60 mg capsule 01-14 00:00: 00 No 1mg Bactrim DS 800 mg-160 mg tablet 12-30 00:00: 00 Yes 1mg Rhett Spring Bactrim DS 800 mg-160 mg tablet 12-30 00:00: 00 No 1mg metronidazo le 500 mg tablet 12-14 00:00: 00 Yes 1mg Rhett Spring metronidazo le 500 mg tablet 12-14 00:00: 00 No 1mg Strattera 60 mg capsule 09-24 00:00: 00 Yes 1mg Rhett Spring Strattera 60 mg capsule 09-24 00:00: 00 No 1mg Strattera 60 mg capsule 07-30 00:00: 00 Yes 1mg Rhett Spring Strattera 60 mg capsule 07-30 00:00: 00 No 1mg prednisone 10 mg tablet 07-04 00:00: 00 Yes 1mg Rhett Spring prednisone 10 mg tablet 07-04 00:00: 00 No 1mg Immunizations Ordered Immunization Name Filled Immunization Name Date Status Comments Source HPV9 HPV9 2023-10-02 00:00:00 Completed Rhett Michelle Saw Td (adult) preservative Td (adult) preservative 2023-10-02 00:00:00 Completed Rhett Michelle Saw Vital Signs Vital Name Observation Time Observation Value Comments S ource Height Measured 2023-10-02 09:12:00 65.00 inches Rhett Spring Body Temperature 2023-10-02 09:12:00 98.10 degrees Rhett Martinez Saw Heart Rate 2023-10-02 09:12:00 71.00 /min Caitlin Martinez Saw Respiratory Rate 2023-10-02 09:12:00 18.00 /min Rhett Martinez Saw BP Systolic 2023-10-02 09:12:00 137 mm[Hg] Fuentes Martinez Saw BP Diastolic 2023-10-02 09:12:00 86 mm[Hg] [place] Spring Weight Measured 2023-10-02 09:12:00 210.40 pounds Rhett F Saw BP Systolic 2022-09-11 17:01:00 132 mm[Hg] Step hen F Saw BP Diastolic 2022-09-11 17:01:00 85 mm[Hg] Chilo phen F Saw Weight Measured 2022-09-11 17:01:00 186.40 pounds Rhett F Saw Height Measured 2022-09-11 17:01:00 65.00 inches Rhett F Saw Body Temperature 2022-09-11 17:01:00 98.10 degrees Rhett F Saw Heart Rate 2022-09-11 17:01:00 89.00 /min Caitlin en F Saw Respiratory Rate 2022-09-11 17:01:00 19.00 /min Rhett F Saw BP Systolic 2022-06-03 11:28:00 121 mm[Hg] Step hen F Saw BP Diastolic 2022-06-03 11:28:00 81 mm[Hg] Chilo phen F Saw Weight Measured 2022-06-03 11:28:00 184.40 pounds Rhett F Saw Height Measured 2022-06-03 11:28:00 65.00 inches Rhett F Saw Body Temperature 2022-06-03 11:28:00 98.60 degrees Rhett F Saw Heart Rate 2022-06-03 11:28:00 71.00 /min Caitlin en F Saw Respiratory Rate 2022-06-03 11:28:00 18.00 /min Rhett F Saw BP Systolic 2022-03-23 11:35:00 120 mm[Hg] Step hen F Saw BP Diastolic 2022-03-23 11:35:00 79 mm[Hg] Chilo phen F Saw Weight Measured 2022-03-23 11:35:00 186.00 pounds Rhett F Saw Height Measured 2022-03-23 11:35:00 65.00 inches Rhett F Saw Body Temperature 2022-03-23 11:35:00 97.70 degrees Rhett F Saw Heart Rate 2022-03-23 11:35:00 61.00 /min Caitlin en F Saw Respiratory Rate 2022-03-23 11:35:00 16.00 /min Rhett F Saw BP Systolic 2021-10-04 11:10:00 109 mm[Hg] Step hen F Saw BP Diastolic 2021-10-04 11:10:00 77 mm[Hg] Chilo phen F Saw Weight Measured 2021-10-04 11:10:00 186.80 pounds Rhett F Saw Height Measured 2021-10-04 11:10:00 65.00 inches Rhett F Saw Body Temperature 2021-10-04 11:10:00 98.10 degrees Rhett F Saw Heart Rate 2021-10-04 11:10:00 89.00 /min Caitlin en F Saw Respiratory Rate 2021-10-04 11:10:00 18.00 /min Rhett F Saw BP Systolic 2021-08-13 14:56:00 122 mm[Hg] Step hen F Saw BP Diastolic 2021-08-13 14:56:00 80 mm[Hg] [place]ilo phen F Saw Weight Measured 2021-08-13 14:56:00 185.20 pounds Rhett F Saw Height Measured 2021-08-13 14:56:00 65.00 inches Rhett F Saw Body Temperature 2021-08-13 14:56:00 98.20 degrees Rhett F Saw Heart Rate 2021-08-13 14:56:00 79.00 /min Caitlin en F Saw Respiratory Rate 2021-08-13 14:56:00 16.00 /min Rhett F Saw BP Systolic 2021-07-15 11:53:00 118 mm[Hg] Step hen F Saw BP Diastolic 2021-07-15 11:53:00 82 mm[Hg] Chilo phen F Saw Weight Measured 2021-07-15 11:53:00 185.60 pounds Rhett F Saw Height Measured 2021-07-15 11:53:00 65.00 inches Rhett F Saw Body Temperature 2021-07-15 11:53:00 98.10 degrees Rhett F Saw Heart Rate 2021-07-15 11:53:00 66.00 /min Caitlin en F Saw Respiratory Rate 2021-07-15 11:53:00 16.00 /min Rhett F Saw BP Systolic 2021-06-15 11:56:00 119 mm[Hg] Step hen F Saw BP Diastolic 2021-06-15 11:56:00 81 mm[Hg] [place]ilo phen F Saw Weight Measured 2021-06-15 11:56:00 187.00 pounds Rhett F Saw Height Measured 2021-06-15 11:56:00 65.00 inches Rhett Spring Body Temperature 2021-06-15 11:56:00 98.00 degrees Rhett F Saw Heart Rate 2021-06-15 11:56:00 118.00 /min Step hen F Saw Respiratory Rate 2021-06-15 11:56:00 18.00 /min Rhett F Saw BP Systolic 2021-05-26 13:06:00 Step hen F Saw BP Diastolic 2021-05-26 13:06:00 Chilo phen F Saw Weight Measured 2021-05-26 13:06:00 184.00 pounds Rhett Spring Height Measured 2021-05-26 13:06:00 65.00 inches Rhett F Saw Body Temperature 2021-05-26 13:06:00 Rhett F Saw Heart Rate 2021-05-26 13:06:00 Caitlin en F Saw Respiratory Rate 2021-05-26 13:06:00 Rhett F Saw BP Systolic 2021-04-07 15:51:00 128 mm[Hg] Step hen F Saw BP Diastolic 2021-04-07 15:51:00 78 mm[Hg] [place]ilo phen F Saw Weight Measured 2021-04-07 15:51:00 184.60 pounds Rhett Spring Height Measured 2021-04-07 15:51:00 65.00 inches Rhett Spring Body Temperature 2021-04-07 15:51:00 98.90 degrees Rhett Spring Heart Rate 2021-04-07 15:51:00 73.00 /min Caitlin en F Saw Respiratory Rate 2021-04-07 15:51:00 Rhettjose Spring BP Systolic 2021-03-08 14:34:00 BP Diastolic 2021-03-08 [...] Goal Plan of Care Note [code = 14451-9] Goal Plan of Care Note [code = 97522-5] Goal Plan of Care Note [code = 13411-8] Goal Plan of Care Note [code = 56507-7] Goal Plan of Care Note [code = 24085-6] Goal Plan of Care Note [code = 96465-0] Goal Plan of Care Note [code = 99885-7] Goal Plan of Care Note [code = 16802-1] Goal Plan of Care Note [code = 49544-7] Goal Plan of Care Note [code = 48728-7] Goal Plan of Care Note [code = 78014-8] Goal Plan of Care Note [code = 44205-8] Goal Plan of Care Note [code = 08717-0] Goal Plan of Care Note [code = 27580-5] Goal Plan of Care Note [code = 28930-5] Goal Plan of Care Note [code = 32714-9] Goal Plan of Care Note [code = 67176-2] Goal Plan of Care Note [code = 30302-9] Goal Plan of Care Note [code = 75020-0] Goal Plan of Care Note [code = 78579-7] Goal Plan of Care Note [code = 53530-2] Goal Plan of Care Note [code = 22450-0] Goal Plan of Care Note [code = 61016-5] Goal Plan of Care Note [code = 20212-8] Goal Plan of Care Note [code = 74011-1] Goal Plan of Care Note [code = 52541-0] Goal Plan of Care Note [code = 53772-5] Goal Plan of Care Note [code = 11840-2] Goal Plan of Care Note [code = 00262-2] Goal Plan of Care Note [code = 00303-9] Goal Plan of Care Note [code = 76438-7] Goal Plan of Care Note [code = 20497-1] Goal Plan of Care Note [code = 45311-9] Goal Plan of Care Note [code = 49572-4] Encounters Start Date/Time End Date/Time Encounter Type Admission Type Attending [facility] Care Department Encounter ID Source 2024-03-20 09:18:36 2024-03-20 09:18:36 Outpatient [facility] [id number] Rhett Martinez Saw 2024-03-13 09:03:52 2024-03-13 09:03:52 Outpatient [facility] [id number] Rhett Martinez Saw 2023-10-02 09:03:34 2023-10-02 09:03:34 Outpatient [facility] [id number] Rhett Martinez Saw 2023-10-02 00:00:00 2023-10-02 00:00:00 Outpatient Visit [facility] [id number] Rhett Martinez Saw 2022-09-12 17:43:57 2022-09-12 17:43:57 Outpatient [facility] [id number] Rhett Michelle Saw 2022-09-11 16:57:15 2022-09-11 16:57:15 Outpatient [facility] [id number] Rhett F Saw 2022-06-03 11:20:45 2022-06-03 11:20:45 Outpatient [facility] [id number] Rhett Michelle Saw 2022-03-23 11:23:27 2022-03-23 11:23:27 Outpatient [facility] [id number] Rhett Michelle Saw 2022-03-23 00:00:00 2022-03-23 00:00:00 Outpatient Visit [id number] Results Test Description Test Time Test Comments Results Result Co mments Source HEPATITIS PANEL, [id number] 02:06:38* Test Item Value Reference Range Interpretation Comme nts HEPATITIS A IgM (test code = 34962) NON-REACTIVE NON-REACTIVE HEPATITIS B CORE IgM (test code = 4644) NON-REACTIVE NON-REACTIVE HEPATITIS B SURF AG (test code = 2739) NON-REACTIVE NON-REACTIVE HEPATITIS C ANTIBODY (test code = 4675) NON-REACTIVE NON-REACTIVE INTERPRETATION HEPATITIS A: (test code = 2552) (NOTE) Hepatitis A sero logy shows no evidence of acute hepatitis A. INTERPRETATION HEPATITIS B: (test code = 82416) (NOTE) Hepatitis B sero logy shows no evidence of acute hepatitis B andno indication of exposure to hepatitis B virus in the previous ange eight months. INTERPRETATION HEPATITIS C: (test code = 68372) (NOTE) Hepatitis C sero logy shows no evidence of exposure to hepatitisC virus at this time. It can take up to 12 months after exposure tothe hepatitis C virus for antibodies to become detectable in the blood in certain patients. UNLESS OTHERWISE INDICATED, ALL TESTING PERFORMED AT [facility] [address] [place] [address] ASSISTED LIVING ASSOCIATE: CHIDI RUIZ M.D. IA NUMBER [id number] [facility] [place]. [id number] 01:30:19* Test Item Value Reference Range Interpretation Comme nts RPR RESULT (test code = 3501) NON-REACTIVE NON-REACTIVE RPR TITER (test code = 3500) NOT INDIC. TITER NOT INDIC. CT/NG, NAAT, [id number] 14:38:25* Test Item Value Reference Range Interpretation Comme nts CHLAMYDIA, NAAT, URINE (test code = 59592) NEGATIVE NEGATIVE Testing is perfo rmed with Devi SHIRLEY 6800/8800 systems usingreal-time polymerase chain reaction (PCR) method. A negative result does not exclude low level infection, specimensampling error, or collection error. GONORRHEA, NAAT, URINE (test code = 63692) NEGATIVE NEGATIVE Testing is perfo rmed with Devi SHIRLEY 6800/8800 systems usingreal-time polymerase chain reaction (PCR) method. A negative result does not exclude low level infection, specimensampling error, or collection error. PAP TEST, THINPREP, [id number] 07:15:37* Test Item Value Reference Range Interpretation Comme nts SOURCE: (test code = 8001) Cervical/Endoce rvical SLIDES: (test code = 8011) 1 LMP: (test code = 8021) 08/12/2021 SPECIMEN ADEQUACY: (test code = 23184) (NOTE) Satisfactory for evaluation. Endocervical cells/transformation zone component present. INTERPRETATION: (test code = 37256) NILM/NO EPITH. ABNORMALITY;SEE BELOW --- - NEGATIVE FOR INTRAEPITHELIAL LESION OR MALIGNANCY (NILM) ---- OTHER COMMENTS: (test code = 8081) (NOTE) Shift in aide suggestive of bacterial vaginosis. RESTORATION ECOLOGIST : (test code = 8101) VIOLET Connelly(ASCP) IAC QC TECHNOLOGIST: (test code = 8111) VIOLET NARAYANAN(ASCP) LOCATION: (test code = 95182) (NOTE) Specimens proces sed and interpreted at [facility], [address] [place] [id number], , CLIA: [id number] CPT: (test code = 8140) (NOTE) 485[address] UNLESS OTH ERWISE INDICATED, COMPUTER AIDED AND RESTORATION ECOLOGIST SCREENING PERFORMED. The Pap test is a screening test with an inherent, but low probability of error. Your patient should be reminded to consult you immediately if she experiences any suspicious signs or symptoms, regardless of her Pap test result. An alternate report format containing images or consolidated prior Pap history is available as applicable. PAP TEST, THINPREP, [id number] 00:00:00* Test Item Value Reference Range Interpretation Comme nts SOURCE: (test code = 8001) Cervical/Endocervical SLIDES: (test code = 8011) 1 LMP: (test code = 8021) 08/12/2021 SPECIMEN ADEQUACY: (test code = 30933) (NOTE) INTERPRETATION: (test code = 04170) NILM/NO EPITH. ABNORMALITY;SEE BELOW OTHER COMMENTS: (test code = 8081) (NOTE) RESTORATION ECOLOGIST: (test code = 8101) VIOLET Connelly(ASCP)IAC QC TECHNOLOGIST: (test code = 8111) VIOLET NARAYANAN(ASCP) LOCATION: (test code = 62764) (NOTE) CPT: (test code = 8140) (NOTE) PAP TEST, THINPREP, [id number] 00:00:00* Test Item Value Reference Range Interpretation Comme nts SOURCE: (test code = 8001) Cervical/Endocervical SLIDES: (test code = 8011) 1 LMP: (test code = 8021) 08/12/2021 SPECIMEN ADEQUACY: (test code = 00005) (NOTE) INTERPRETATION: (test code = 20049) NILM/NO EPITH. ABNORMALITY;SEE BELOW OTHER COMMENTS: (test code = 8081) (NOTE) RESTORATION ECOLOGIST: (test code = 8101) VIOLET Connelly(ASCP)IAC QC TECHNOLOGIST: (test code = 8111) VIOLET NARAYANAN(ASCP) LOCATION: (test code = 13112) (NOTE) CPT: (test code = 8140) (NOTE) Rhett Joseph/NG, TMA, [id number] 19:15:55* Test Item Value Reference Range Interpretation Comme nts GONORRHEA, TMA (test code = 00218) NEGATIVE NEGATIVE Assay methodolog y is nucleic acid amplification by video engineer mediated amplification (TMA) utilizing the Aptima Combo 2 Assay. CHLAMYDIA, TMA (test code = 34659) NEGATIVE NEGATIVE Assay methodolog y is nucleic acid amplification by video engineer mediated amplification (TMA) utilizing the Aptima Combo 2 Assay. HPV HIGH RISK WITH GENOTYPE, [id number] 15:56:35* Test Item Value Reference Range Interpretation Comme nts HPV HIGH RISK INTERP (test code = 83248) POSITIVE NEGATIVE A HPV 16 (test code = 92233) NEGATIVE HPV 18 (test code = 60438) NEGATIVE HPV, HR, OTHER GENOTYPES (test code = 62267) POSITIVE A Testing methodol ogy is real-time PCR utilizing hydrolysis probes with the Equidateas 4800 system. The test individually detects genotypes 16 and 18, as well as the other 12 high risk types (31,33,35,39,45,51,52,56 ,58,59,66,68). The expected result is negative. A negative result does not rule out the presence of HPV not included in the genotype set, a low level of infection or specimen sampling error. UNLESS OTHERWISE INDICATED, ALL TESTING PERFORMED [facility], [facility]. [address] [place] [address] ASSISTED LIVING ASSOCIATE: HANNAH HERNÁNDEZ M.D. CLIA NUMBER [id number] [facility] [place]. [id number] GC AND CHLAMYDIA AMPLIFIED, [id number] 00:00:00* Test Item Value Reference Range Interpretation Comme nts GONORRHEA, TMA (test code = 58909) NEGATIVE CHLAMYDIA, TMA (test code = 98965) NEGATIVE HPV HIGH RISK WITH GENOTYPE, [id number] 00:00:00* Test Item Value Reference Range Interpretation Comme nts HPV HIGH RISK INTERP (test c ode = 99143) POSITIVE HPV 16 (test code = 44966) NEGATIVE HPV 18 (test code = 96373) NEGATIVE HPV, HR, OTHER GENOTYPES (te st code = 31782) POSITIVE GC AND CHLAMYDIA AMPLIFIED, [id number] 00:00:00* Test Item Value Reference Range Interpretation Comme nts GONORRHEA, TMA (test code = 30889) NEGATIVE CHLAMYDIA, TMA (test code = 89756) NEGATIVE Rhett F AustinHPV HIGH RISK WITH GENOTYPE, [id number] 00:00:00* Test Item Value Reference Range Interpretation Comme nts HPV HIGH RISK INTERP (test c ode = 81848) POSITIVE HPV 16 (test code = 67700) NEGATIVE HPV 18 (test code = 93067) NEGATIVE HPV, HR, OTHER GENOTYPES (te st code = 30399) POSITIVE Rhett Martinez AustinLIPID [id number] 04:09:03* Test Item Value Reference Range Interpretation [...] SPECIMENS. FOR MOREINFORMATION, SEE CLIENT ANNOUNCEMENT AT [email or web address] RISK RATIO LDL/HDL (test code = 2238) 3.69 RATIO <3.22 H COMPREHENSIVE METABOLIC [id number] 04:09:03* Test Item Value Reference Range Interpretation Comme nts GLUCOSE (test code = 2217) 78 MG/DL 70-99 BUN (test code = 2208) 16 MG/DL 6-20 CREATININE (test code = 2214) 0.75 MG/DL 0.60-1.30 eGFR (2020 CKD-EPI) (test code = 61529) 113 ML/MIN/1.73 >60 CALC BUN/CREAT (test code = 2235) 21 RATIO 6-28 SODIUM (test code = 223) 142 MEQ/L 133-146 POTASSIUM (test code = 2228) 4.5 MEQ/L 3.5-5.4 CHLORIDE (test code = 2215) 105 MEQ/L 95-107 CARBON DIOXIDE (test code = 2206) 22 MEQ/L 19-31 CALCIUM (test code = 2209) 9.3 MG/DL 8.5-10.5 PROTEIN, TOTAL (test code = 222) 7.5 G/DL 6.1-8.3 ALBUMIN (test code = 2201) 4.6 G/DL 3.5-5.2 CALC GLOBULIN (test code = 2240) 2.9 G/DL 1.9-3.7 CALC A/G RATIO (test code = 2234) 1.6 RATIO 1.0-2.6 BILIRUBIN, TOTAL (test code = 2207) 1.0 MG/DL See_Comment [Automated oh ssage] The system which generated this result transmitted reference range: <=1.2. The reference range was not used to interpret this result as normal/abnormal. ALKALINE PHOSPHATASE (test code = 2204) 52 U/L 40-112 AST (test code = 2218) 19 U/L 9-40 ALT (test code = 2219) 13 U/L 5-40 UNLESS OTHERWISE INDICATED, ALL TESTING PERFORMED [facility] [employer] [address] [place] [address] ASSISTED LIVING ASSOCIATE: HANNAH HERNÁNDEZ M.D. CLIA NUMBER [id number] [facility] [place]. [id number] HEMOGLOBIN [id number] 03:55:46* Test Item Value Reference Range Interpretation Comme nts HEMOGLOBIN A1c (test code = 97865) 5.5 % 4.2-5.6 CBC W/AUTO DIFF WITH [id number] 03:05:16* Test Item Value Reference Range Interpretation [...] 0.00-0.10 ABS NUCLEATED RBCS (test code = 29754) 0.00 K/UL 0.00-0.11 CBC W/AUTO [id number] 00:00:00* Test Item Value Reference Range Interpretation [...] ABS NUCLEATED RBCS (test cod e = 34448) 0.00 K/UL HEMOGLOBIN [id number] 00:00:00* Test Item Value Reference Range Interpretation Comme nts HEMOGLOBIN A1c (test code = 65331) 5.5 % LIPID [id number] 00:00:00* Test Item Value Reference Range Interpretation Comme nts CHOLESTEROL (test code = 2210) 263 MG/DL TRIGLYCERIDES (test code = 2232) 85 MG/DL HDL CHOLESTEROL (test code = 2220) 52 MG/DL CALC LDL CHOL (test code = 2237) 192 MG/DL RISK RATIO LDL/HDL (test cod e = 2238) 3.69 RATIO CBC W/AUTO [id number] 00:00:00* Test Item Value Reference Range Interpretation [...] ABS NUCLEATED RBCS (test cod e = 38156) 0.00 K/UL Rhett Martinez AustinCOMPREHENSIVE METABOLIC [id number] 00:00:00* Test Item Value Reference Range Interpretation Comme nts GLUCOSE (test code = 2217) 78 MG/DL BUN (test code = 2208) 16 MG/DL CREATININE (test code = 2214) 0.75 MG/DL eGFR (2020 CKD-EPI) (test code = 53710) 113 ML/MIN/1.73 CALC BUN/CREAT (test code = [...] ALT (test code = 2219) 13 U/L HEMOGLOBIN [id number] 00:00:00* Test Item Value Reference Range Interpretation Comme nts HEMOGLOBIN A1c (test code = 85832) 5.5 % Rhett Martinez AustinLIPID [id number] 00:00:00* Test Item Value Reference Range Interpretation Comme nts CHOLESTEROL (test code = 2210) 263 MG/DL TRIGLYCERIDES (test code = 2232) 85 MG/DL HDL CHOLESTEROL (test code = 2220) 52 MG/DL CALC LDL CHOL (test code = 2237) 192 MG/DL RISK RATIO LDL/HDL (test cod e = 2238) 3.69 RATIO Rhett SpringCOMPREHENSIVE METABOLIC [id number] 00:00:00* Test Item Value Reference Range Interpretation Comme nts GLUCOSE (test code = 2217) 78 MG/DL BUN (test code = 2208) 16 MG/DL CREATININE (test code = 2214) 0.75 MG/DL eGFR (2020 CKD-EPI) (test code = 24576) 113 ML/MIN/1.73 CALC BUN/CREAT (test code = [...] ALT (test code = 2219) 13 U/L Rhett Martinez [facility] W/AUTO [id number] 00:00:00* Test Item Value Reference Range Interpretation [...] ABS NUCLEATED RBCS (test cod e = 31793) 0.00 K/UL COMPREHENSIVE METABOLIC [id number] 00:00:00* Test Item Value Reference Range Interpretation Comme nts GLUCOSE (test code = 2217) 88 MG/DL BUN (test code = 2208) 13 MG/DL CREATININE (test code = 2214) 0.74 MG/DL eGFR AMER. (test cod e = 94866) 131 ML/MIN/1.73 eGFR NON- AMER. (test code = 57899) 113 ML/MIN/1.73 CALC BUN/CREAT (test code = [...] ALT (test code = 2219) 14 U/L [id number] 00:00:00* Test Item Value Reference Range Interpretation Comme nts TSH, THIRD GENERATION (test code = 2821) 1.750 UIU/ML CBC W/AUTO [id number] 00:00:00* Test Item Value Reference Range Interpretation [...] ABS NUCLEATED RBCS (test cod e = 91990) 0.00 K/UL Rhett Michelle SawCOMPREHENSIVE METABOLIC [id number] 00:00:00* Test Item Value Reference Range Interpretation Comme nts GLUCOSE (test code = 2217) 88 MG/DL BUN (test code = 2208) 13 MG/DL CREATININE (test code = 2214) 0.74 MG/DL eGFR AMER. (test cod e = 96064) 131 ML/MIN/1.73 eGFR NON- AMER. (test code = 16256) 113 ML/MIN/1.73 CALC BUN/CREAT (test code = [...] ALT (test code = 2219) 14 U/L Rhett [id number] 00:00:00* Test Item Value Reference Range Interpretation Comme nts TSH, THIRD GENERATION (test code = 2821) 1.750 UIU/ML Rhett SpringSARS-CoV-2 (COVID-19) by RT-PCR (HIGH RISK)2019-11-25 00:00:00* Test Item Value Reference Range Interpretation Comme nts SARS-CoV-2 INTERPRETATION (test code = 88650) NEGATIVE SOURCE (test code = 73989) NASOPHARYNGEAL SARS-CoV-2 (COVID-19) by RT-PCR (HIGH RISK)2019-11-25 00:00:00* Test Item Value Reference Range Interpretation Comme nts SARS-CoV-2 INTERPRETATION (test code = 91598) NEGATIVE SOURCE (test code = 40636) NASOPHARYNGEAL Rhett SpringCOMPREHENSIVE METABOLIC [id number] 00:00:00* Test Item Value Reference Range Interpretation Comme nts GLUCOSE (test code = 2217) 96 MG/DL BUN (test code = 2208) 13 MG/DL CREATININE (test code = 2214) 1.08 MG/DL eGFR AMER. (test cod e = 36178) 84 ML/MIN/1.73 eGFR NON- AMER. (test code = 80121) 73 ML/MIN/1.73 CALC BUN/CREAT (test code = [...] (test code = 2219) 13 U/L LIPID [id number] 00:00:00* Test Item Value Reference Range Interpretation Comme nts CHOLESTEROL (test code = 2210) 230 MG/DL TRIGLYCERIDES (test code = 2232) 145 MG/DL HDL CHOLESTEROL (test code = 2220) 50 MG/DL CALC LDL CHOL (test code = 2237) 151 MG/DL RISK RATIO LDL/HDL (test cod e = 2238) 3.02 RATIO CBC W/AUTO [id number] 00:00:00* Test Item Value Reference Range Interpretation [...] (test code = 1015) 264 K/UL HEMOGLOBIN [id number] 00:00:00* Test Item Value Reference Range Interpretation Comme nts HEMOGLOBIN A1c (test code = 50236) 5.4 % COMPREHENSIVE METABOLIC [id number] 00:00:00* Test Item Value Reference Range Interpretation Comme nts GLUCOSE (test code = 2217) 96 MG/DL BUN (test code = 2208) 13 MG/DL CREATININE (test code = 2214) 1.08 MG/DL eGFR AMER. (test cod e = 02214) 84 ML/MIN/1.73 eGFR NON- AMER. (test code = 77174) 73 ML/MIN/1.73 CALC BUN/CREAT (test code = [...] ALT (test code = 2219) 13 U/L Rhett SpringLIPID [id number] 00:00:00* Test Item Value Reference Range Interpretation Comme nts CHOLESTEROL (test code = 2210) 230 MG/DL TRIGLYCERIDES (test code = 2232) 145 MG/DL HDL CHOLESTEROL (test code = 2220) 50 MG/DL CALC LDL CHOL (test code = 2237) 151 MG/DL RISK RATIO LDL/HDL (test cod e = 2238) 3.02 RATIO Rhett SpringCBC W/AUTO [id number] 00:00:00* Test Item Value Reference Range Interpretation [...] COUNT (test code = 1015) 264 K/UL Rhett SpringHEMOGLOBIN [id number] 00:00:00* Test Item Value Reference Range Interpretation Comme nts HEMOGLOBIN A1c (test code = 95807) 5.4 % Rhett SpringCOMPREHENSIVE METABOLIC [id number] 00:00:00* Test Item Value Reference Range Interpretation Comme nts GLUCOSE (test code = 2217) 79 MG/DL BUN (test code = 2208) 14 MG/DL CREATININE (test code = 2214) 0.86 MG/DL eGFR AMER. (test cod e = 33622) 114 ML/MIN/1.73 eGFR NON- AMER. (test code = 96663) 98 ML/MIN/1.73 CALCULATED BUN/CREAT (test code = [...] (test code = 2219) 14 U/L LIPID [id number] 00:00:00* Test Item Value Reference Range Interpretation Comme nts CHOLESTEROL (test code = 2210) 213 MG/DL TRIGLYCERIDES (test code = 2232) 100 MG/DL HDL CHOLESTEROL (test code = 2220) 63 MG/DL CALCULATED LDL CHOL (test co de = 2237) 130 MG/DL RISK RATIO LDL/HDL (test cod e = 2238) 2.06 RATIO CBC W/AUTO [id number] 00:00:00* Test Item Value Reference Range Interpretation [...] (test code = 1015) 262 K/UL HEMOGLOBIN [id number] 00:00:00* Test Item Value Reference Range Interpretation Comme nts HEMOGLOBIN A1c (test code = 96614) 5.8 % [id number] 00:00:00* Test Item Value Reference Range Interpretation Comme nts TSH (test code = 2821) 1.5 UIU/ML COMPREHENSIVE METABOLIC [id number] 00:00:00* Test Item Value Reference Range Interpretation Comme nts GLUCOSE (test code = 2217) 79 MG/DL BUN (test code = 2208) 14 MG/DL CREATININE (test code = 2214) 0.86 MG/DL eGFR AMER. (test cod e = 37833) 114 ML/MIN/1.73 eGFR NON- AMER. (test code = 95574) 98 ML/MIN/1.73 CALCULATED BUN/CREAT (test code = [...] (ALT) (test code = 2219) 14 U/L Rhett F AustinLIPID [id number] 00:00:00* Test Item Value Reference Range Interpretation Comme nts CHOLESTEROL (test code = 2210) 213 MG/DL TRIGLYCERIDES (test code = 2232) 100 MG/DL HDL CHOLESTEROL (test code = 2220) 63 MG/DL CALCULATED LDL CHOL (test co de = 2237) 130 MG/DL RISK RATIO LDL/HDL (test cod e = 2238) 2.06 RATIO Rhett SpringCBC W/AUTO [id number] 00:00:00* Test Item Value Reference Range Interpretation [...] COUNT (test code = 1015) 262 K/UL Rhett SpringHEMOGLOBIN [id number] 00:00:00* Test Item Value Reference Range Interpretation Comme dav HEMOGLOBIN A1c (test code = 34540) 5.8 % Rhett [id number] 00:00:00* Test Item Value Reference Range Interpretation Comme nts TSH (test code = 2821) 1.5 UIU/ML Rhett SpringBASI METABOLIC [id number] 00:00:00* Test Item Value Reference Range Interpretation Comme nts GLUCOSE (test code = 2217) 87 MG/DL BUN (test code = 2208) 15 MG/DL CREATININE (test code = 2214) 1.0 MG/DL eGFR AMER. (test cod e = 28717) 87 ML/MIN/1.73 eGFR NON- AMER. (test code = 48510) 72 ML/MIN/1.73 SODIUM (test code = 2231) 137 MEQ/L POTASSIUM (test code = 2228) 4.4 MEQ/L CHLORIDE (test code = 2215) 107 MEQ/L CARBON DIOXIDE (test code = 2206) 26 MEQ/L CALCIUM (test code = 2209) 9.8 MG/DL CBC W/AUTO [id number] 00:00:00* Test Item Value Reference Range Interpretation [...] (test code = 1015) 280 K/UL OSMOLALITY, [id number] 00:00:00* Test Item Value Reference Range Interpretation Comme nts OSMOLALITY, SERUM (test code = 2045) 296 MOSM/KG BASIC METABOLIC [id number] 00:00:00* Test Item Value Reference Range Interpretation Comme nts GLUCOSE (test code = 2217) 87 MG/DL BUN (test code = 2208) 15 MG/DL CREATININE (test code = 2214) 1.0 MG/DL eGFR AMER. (test cod e = 41883) 87 ML/MIN/1.73 eGFR NON- AMER. (test code = 52905) 72 ML/MIN/1.73 SODIUM (test code = 2231) 137 MEQ/L POTASSIUM (test code = 2228) 4.4 MEQ/L CHLORIDE (test code = 2215) 107 MEQ/L CARBON DIOXIDE (test code = 2206) 26 MEQ/L CALCIUM (test code = 2209) 9.8 MG/DL Rhett Martinez SawCBC W/AUTO [id number] 00:00:00* Test Item Value Reference Range Interpretation [...] COUNT (test code = 1015) 280 K/UL Rhett SpringOSMOLALITY, [id number] 00:00:00* Test Item Value Reference Range Interpretation Comme nts OSMOLALITY, SERUM (test code = 2045) 296 MOSM/KG Rhett Spring
[2024-06-22] MEDS ORDERED: MAGNES/ALUMIN/SIMET 30ML UCUP ONE (15:05)
[2024-06-22] MEDS ORDERED: dexAMETHasone 10 MG/ML VIAL ONE (15:07)
[2024-06-22] MEDS ORDERED: LIDOCAINE VISCOUS 2% 10ML ORAL SOLN ONE (15:07)
[2024-06-22] MEDS ORDERED: ACETAMINOPHEN 500 MG TAB ONE (15:07)
--- NOTE | 2024-06-22 15:59 | ER ---
Nurse's Notes [facility] Name: Kayli Mukherjee Age: 29 yrs Sex: Female : 1995 Arrival Date: 06/22/2024 Time: 12:27 Bed 12 Private MD: Diagnosis: Acute tonsillitis, unspecified Presentation: 06/22 13:03 Chief complaint: Patient states: Sore throat, fever, headache onset Sunday. cm10 Coronavirus screen: Client denies travel out of the [place] in the last 14 days. Ebola Screen: Patient denies travel to an Ebola-affected area in the 21 days before illness onset. Initial Sepsis Screen: Does the patient meet any 2 criteria? HR > 90 bpm. Does the patient have a suspected source of infection? No. Patient's initial sepsis screen is negative. Risk Assessment: Do you want to hurt yourself or someone else? Patient reports no desire to harm self or others. Onset of symptoms was June 22, 2024. 13:03 Method Of Arrival: Ambulatory cm10 13:03 Acuity: KARELY 4 cm10 Triage Assessment: 13:04 General: Appears uncomfortable, Behavior is calm, cooperative. Pain: Complains of pain cm10 in head and right ear and throat. EENT: Throat is reddened has patchy exudate has enlarged tonsils Reports pain in right ear when swallowing. Neuro: No deficits noted. Level of Consciousness is awake, alert, obeys commands, Oriented to person, place, time, situation, Appropriate for age. Respiratory: No deficits noted. Airway is patent Respiratory effort is even, unlabored, Respiratory pattern is regular, symmetrical. RADIO RECORDER: 13:04 LMP 05/31/2024, unknown cm10 Historical: - Allergies: 13:04 No Known Allergies; cm10 - Home Meds: 13:04 None [Active]; cm10 - PMHx: 13:04 None; cm10 - PSHx: 13:04 None; cm10 - Immunization history:: Adult Immunizations up to date. - Infectious Disease History:: Denies. - Social history:: Smoking status: unknown. Screenin:15 [facility] ED Fall Risk Assessment (Adult) History of falling in the last 3 months, hb including since admission No falls in past 3 months (0 pts) Confusion or Disorientation No (0 pts) Intoxicated or Sedated No (0 pts) Impaired Gait No (0 pts) Mobility Assist Device Used No (0 pt) Altered Elimination No (0 pt) Score/Fall Risk Level 0 - 2 = Low Risk Oriented to surroundings, Maintained a safe environment. Abuse screen: Denies threats or abuse. Denies injuries from another. Nutritional screening: No deficits noted. Tuberculosis screening: No symptoms or risk factors identified. Assessment: 15:14 General: Appears in no apparent distress. Behavior is calm, cooperative. Pain: Pain hb currently is 9 out of 10 on a pain scale. Neuro: Level of Consciousness is awake, alert, obeys commands, Oriented to person, place, time, situation. Cardiovascular: Patient's skin is warm and dry. Respiratory: Respiratory effort is even, unlabored, Respiratory pattern is regular, symmetrical. GI: No signs and/or symptoms were reported involving the gastrointestinal system. : No signs and/or symptoms were reported regarding the genitourinary system. EENT: Reports severe sore throat. Derm: Skin is pink, warm \T\ dry. Musculoskeletal: No signs and/or symptoms reported regarding the musculoskeletal system. 16:10 Neuro: Level of Consciousness is awake, alert, obeys commands, Oriented to person, aa5 place, time, situation. Respiratory: Airway is patent Respiratory effort is even, unlabored, Respiratory pattern is regular, symmetrical. Derm: Skin is dry, Skin is normal, Skin temperature is warm. Vital Signs: 13:03 BP 132 / 86; Pulse 96; Resp 15; Temp 100.8(O); Pulse Ox 100% ; Weight 72.57 kg; Height cm10 5 ft. 5 in. ; Pain 9/10; 13:03 Body Mass Index 26.63 (72.57 kg, 165.1 cm) cm10 13:03 Pain Scale: Adult cm10 ED Course: 12:30 Patient arrived in ED. ra3 12:33 Bruno Robbins PA is PHCP. cp 12:33 Prashant Lam MD is Attending Physician. cp 13:04 Triage completed. cm10 13:04 Arm band placed on right wrist. Patient placed in waiting room. cm10 15:15 Patient has correct armband on for positive identification. Provided Education on: hb medications, use of call light. 15:15 No provider procedures requiring assistance completed. Patient did not have IV access hb during this emergency room visit. Administered Medications: 15:07 Not Given (Physician Discretion): [id number] mg IM once cp 15:14 Drug: Acetaminophen PO 1000 mg PO once Route: PO; hb 16:10 Follow up: Response: No adverse reaction aa5 15:14 Drug: GI Cocktail without - (Maalox PO 30 ml, Lidocaine Mucous Membrane 2 % 15 hb ml) PO once Route: PO; 16:10 Follow up: Response: No adverse reaction aa5 15:14 Drug: Dexamethasone IM 10 mg IM once Route: IM; Site: right ventrogluteal; hb 16:10 Follow up: Response: No adverse reaction aa5 15:14 Drug: Clindamycin PO 600 mg PO once Route: PO; hb 16:10 Follow up: Response: No adverse reaction aa5 Medication: 16:10 VIS not applicable for this client. aa5 Outcome: 15:59 Discharge ordered by MD. cp 16:10 Discharged to home ambulatory, aa5 16:10 Condition: stable 16:10 Discharge instructions given to patient, Instructed on discharge instructions, follow up and referral plans. medication usage, Demonstrated understanding of instructions, follow-up care, medications, Prescriptions given X 3, 16:13 Patient left the ED. aa5 Signatures: Gia Perrin, HUNTER RN aa5 Bruno Robbins PA PA Mary Lou Ravi RN RN Sheri Lane RN RN cm10 Rosy Hua ra3 Corrections: (The following items were deleted from the chart) 17:08 15:35 Gia Perrin, RN is Primary Nurse. aa5 aa5
--- NOTE | 2024-06-22 15:59 | EDPHYS ---
Physician Documentation [facility] Name: Kayli Mukherjee Age: 29 yrs Sex: Female : 1995 Arrival Date: 06/22/2024 Time: 12:27 Bed 12 Private MD: ED Physician Prashant Lam HPI: 06/22 14:20 This 29 yrs old Black Female presents to ER via Ambulatory with complaints of Sore cp Throat. 14:20 The patient presents with sore throat, dysphagia, of both solids and liquids. The cp patient describes throat pain as constant. Onset: The symptoms/episode began/occurred yesterday, and became worse today. Severity of symptoms: in the emergency department the symptoms are unchanged, despite home interventions. Associated signs and symptoms: Pertinent positives: fever, Pertinent negatives chest pain, diarrhea, vomiting. SHOE TRIMMER: 13:04 LMP 05/31/2024, unknown cm10 Historical: - Allergies: 13:04 No Known Allergies; cm10 - Home Meds: 13:04 None [Active]; cm10 - PMHx: 13:04 None; cm10 - PSHx: 13:04 None; cm10 - Immunization history:: Adult Immunizations up to date. - Infectious Disease History:: Denies. - Social history:: Smoking status: unknown. ROS: 14:25 Cardiovascular: Negative for chest pain, palpitations, cp 14:25 Eyes: Negative for injury, pain, redness, and discharge, cp 14:25 Constitutional: Positive for fever, 14:25 ENT: Positive for sore throat, Negative for drainage from ear(s), ear pain, difficulty swallowing, difficulty handling secretions, 14:25 Respiratory: Negative for cough, shortness of breath, wheezing, 14:25 Abdomen/GI: Negative for abdominal pain, vomiting, diarrhea, constipation, 14:25 Neuro: Negative for altered mental status, headache, weakness, 14:25 All other systems are negative, Exam: 14:30 Constitutional: The patient appears in no acute distress, alert, awake, non-toxic, well cp developed, well nourished, 14:30 Head/Face: Normocephalic, atraumatic. cp 14:30 Eyes: Periorbital structures: appear normal, Conjunctiva: normal, no exudate, no injection, Sclera: no appreciated abnormality, Lids and lashes: appear normal, bilaterally, 14:30 ENT: External ear(s): are unremarkable, Ear canal(s): are normal, clear, TM's: dullness, bilaterally, Nose: is normal, Mouth: Lips: moist, Oral mucosa: moist, Posterior pharynx: Airway: no evidence of obstruction, patent, Tonsils: bilaterally enlarged, with erythema, with exudate, Uvula: midline, swelling, is not appreciated, erythema, that is moderate, 14:30 Neck: ROM/movement: pain, is not appreciated, limited range of motion, is not appreciated, 14:30 Chest/axilla: Inspection: 14:30 Cardiovascular: Rate: normal, Rhythm: regular, 14:30 Respiratory: the patient does not display signs of respiratory distress, Respirations: normal, no use of accessory muscles, no retractions, labored breathing, is not present, Breath sounds: are clear throughout, no decreased breath sounds, no stridor, no wheezing, 14:30 Abdomen/GI: Inspection: abdomen appears normal, Palpation: abdomen is soft and non-tender, in all quadrants, Vital Signs: 13:03 BP 132 / 86; Pulse 96; Resp 15; Temp 100.8(O); Pulse Ox 100% ; Weight 72.57 kg; Height cm10 5 ft. 5 in. ; Pain 9/10; 13:03 Body Mass Index 26.63 (72.57 kg, 165.1 cm) cm10 13:03 Pain Scale: Adult cm10 MDM: 13:08 Medical Screening Exam initiated 15:00 Differential diagnosis: apthous stomatitis, gingivostomatitis, group A strep cp tonsillitis, mononucleosis, peritonsillar abscess pharyngitis, retropharyngeal abcess. 15:59 Data reviewed: vital signs, nurses notes, lab test result(s), and as a result, I will cp discharge patient. 15:59 I considered the following discharge prescriptions or medication management in the emergency department Medications were administered in the Emergency Department. See MAR. Counseling: I had a detailed discussion with the patient and/or guardian regarding the historical points, exam findings, and any diagnostic results supporting the discharge/admit diagnosis, lab results, to return to the emergency department if symptoms worsen or persist or if there are any questions or concerns that arise at home. Response to treatment: the patient's symptoms have mildly improved after treatment, and as a result, I will discharge patient. Administered Medications: 15:07 Not Given (Physician Discretion): [id number] mg IM once cp 15:14 Drug: Acetaminophen PO 1000 mg PO once Route: PO; hb 16:10 Follow up: Response: No adverse reaction aa5 15:14 Drug: GI Cocktail without - (Maalox PO 30 ml, Lidocaine Mucous Membrane 2 % 15 hb ml) PO once Route: PO; 16:10 Follow up: Response: No adverse reaction aa5 15:14 Drug: Dexamethasone IM 10 mg IM once Route: IM; Site: right ventrogluteal; hb 16:10 Follow up: Response: No adverse reaction aa5 15:14 Drug: Clindamycin PO 600 mg PO once Route: PO; hb 16:10 Follow up: Response: No adverse reaction aa5 Disposition Summary: 06/22/24 15:59 Discharge Ordered Notes: Location: Home cp Problem: new cp Symptoms: have improved cp Condition: Stable cp Diagnosis - Acute tonsillitis, unspecified cp Followup: cp - With: Private Physician - When: 2 - 3 days - Reason: Worsening of condition Discharge Instructions: - Discharge Summary Sheet cp - Tonsillitis cp Forms: - Medication Reconciliation Form cp - Antibiotic Education cp - Prescription Opioid Use cp - Patient Portal Instructions cp - Leadership Thank You Letter cp - Work release form eb Prescriptions: - Lidocaine Viscous - take 5 milliliter ORAL route every 4-6 hours; 120 milliliter; Refills: 0, cp Product Selection Permitted - Clindamycin HCl 300 mg Oral Capsule - take 1 capsule ORAL route every 6 hours for 10 days; 40 capsule; Refills: 0, cp Product Selection Permitted - Ibuprofen 800 mg Oral Tablet - take 1 tablet ORAL route every 8 hours As needed take with food; 30 tablet; cp Refills: 0, Product Selection Permitted Signatures: Bruno Robbins PA PA cp Baxter, Heather RN RN Sheri Lane RN RN cm10 Gia Perrin RN aa5
[2024-06-22 16:41] VITALS: BP 132/86; TEMP 100.8; O2SAT 100
== END 2024-06-22 16:13 | disposition home or self-care (01) ==
LOC: ER 12:27
DX: J03.90 Acute tonsillitis, unspecified (principal)
CPT/HCPCS: 96372; 99284; J1100

== ENCOUNTER 2024-07-13 15:32 | Emergency (ER) | payer SELFPAY ==
--- OUTSIDE RECORDS SUMMARY | 2024-07-13 15:37 | XMS REPORT | Continuity of Care Document ---
Author Name Unknown Address [address] [facility] [address] [place] [address] [facility] thconnect Address [address] [facility] 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 Ordering Clinician Indication Dosage Frequency Signature (SIG) Comments Components Source Xulane 150 mcg-35 mcg/24 hr transdermal patch 2023-05 0-24 00:00: 00 Yes mcg/24 hr Rhett F Saw TAKE 1 TABLET DAILY. 4-25 00:00: 00 10-01 00:00 :00 No 1 Rhett F Saw TAKE 1 TABLET DAILY. 4-25 00:00: 00 10-01 00:00 :00 No 25 Rhett F Saw TAKE 1 TABLET BY MOUTH EVERY 12 HOURS FOR 10 DAYS 2021-05 2-05 00:00: 00 10-01 00:00 :00 No Rhett F Saw Dose Unknown 5-17 00:00: 00 No Dose Unknown 5-17 00:00: 00 Yes Rhett F Saw Dose Unknown 4-07 00:00: 00 No Dose Unknown 4-07 00:00: 00 Yes Rhett F Saw Dose Unknown 4-06 00:00: 00 No Dose Unknown 4-06 00:00: 00 Yes Rhett F Saw Dose Unknown 4-05 00:00: 00 No Dose Unknown 4-05 00:00: 00 Yes Rhett F Saw Dose Unknown 2022-0 4-04 00:00: 00 No Dose Unknown 2022-0 4-04 00:00: 00 No Dose Unknown 2022-0 4-04 00:00: 00 Yes Rhett Spring Dose Unknown 2022-0 4-04 00:00: 00 Yes Rhett Spring Dose Unknown 2022-0 4-02 00:00: 00 No Dose Unknown 2022-0 4-02 00:00: 00 No Dose Unknown 2022-0 4-02 00:00: 00 Yes Rhett Spring Dose Unknown 2022-0 4-02 00:00: 00 Yes Rhett Spring Dose Unknown 2021-0 4-01 00:00: 00 Yes Rhett Spring Dose Unknown 2021-0 4-01 00:00: 00 Yes Rhett Spring Dose Unknown 2021-0 4-01 00:00: 00 Yes Rhett Spring Dose Unknown 2021-0 4- 00:00: 00 Yes Rhett Spring amoxicillin 875 mg-potassiu m clavulanate 125 mg tablet 2-0 4-01 00:00: 00 No 1mg Bromfed DM 2 mg-30 mg-10 mg/5 mL oral syrup 2-0 4-01 00:00: 00 No 10mg/5 mL Dose Unknown 2021-0 4-01 00:00: 00 No Dose Unknown 2-0 4-01 00:00: 00 No Dose Unknown 2022-0 4-01 00:00: 00 No Dose Unknown 2-0 4-01 00:00: 00 No Dose Unknown 2-0 4-01 00:00: 00 No Dose Unknown 2022-0 4-01 00:00: 00 No amoxicillin 875 mg-potassiu m clavulanate 125 mg tablet 2-0 4-01 00:00: 00 Yes 1mg Rhett Spring Bromfed DM 2 mg-30 mg-10 mg/5 mL oral syrup 2-0 4-01 00:00: 00 Yes 10mg/5 mL Rhett Spring Dose Unknown 2021-0 4-01 00:00: 00 Yes Rhett Spring Dose Unknown 2021-0 4-01 00:00: 00 Yes Rhett Spring metronidazo le 500 mg tablet 2021-0 3-31 00:00: 00 Yes 1mg Rhett Spring Dose Unknown 2022-0 3-31 00:00: 00 Yes Rhett Spring Dose Unknown 2022-0 3-31 00:00: 00 Yes Rhett Spring Dose Unknown 2022-0 3-31 00:00: 00 Yes Rhett Spring Dose Unknown 2022-0 3-31 00:00: 00 Yes Rhett Spring Dose Unknown 2022-0 3-31 00:00: 00 Yes Rhett Spring Dose Unknown 2022-0 3-31 00:00: 00 Yes Rhett Spring metronidazo le 500 mg tablet 2022-0 3-31 [...] Unknown 2022-0 3-27 00:00: 00 Yes Rhett Spring Dose Unknown 2022-0 3-27 00:00: 00 Yes Rhett Spring Dose Unknown 2022-0 3-27 00:00: 00 Yes Rhett Spring Dose Unknown 2022-0 3-27 00:00: 00 Yes [...] 2022-0 3-25 00:00: 00 No Dose Unknown 3 00:00: 00 No Dose Unknown 3 00:00: 00 No Dose Unknown 08-12 00:00: 00 No Lexapro 10 mg tablet 06-15 00:00: 00 Yes 1mg Rhett Spring Lexapro 10 mg tablet 06-15 00:00: 00 No 1mg amoxicillin 500 mg tablet 2020-05 00:00: 00 Yes 1mg Rhett Spring benzocaine 20 % mucosal aerosol spray 2020-05 00:00: 00 Yes 1% Rhett Spring amoxicillin 500 mg tablet 2020-05 00:00: 00 No 1mg benzocaine 20 % mucosal aerosol spray 2020-05 00:00: 00 No 1% Claritin 10 mg tablet 2020-05 0 00:00: 00 Yes 1mg Rhett Spring Dose Unknown 2020-05 00:00: 00 Yes Rhett Spring Tessalon Perles 100 mg capsule 2020-05 00:00: 00 Yes 1mg Rhett Spring Claritin 10 mg tablet 2020-05 00:00: 00 No 1mg Dose Unknown 2020-05 00:00: 00 No Tessalon Perles 100 mg capsule 2020-05 0 00:00: 00 No 1mg sertraline 25 mg tablet 12-30 00:00: 00 Yes 1mg Rhett Spring Strattera 40 mg capsule 8 00:00: 00 Yes 1mg Rhett Spring sertraline [...] Source HPV9 HPV9 2023-10-02 00:00:00 Completed Rhett Spring Td (adult) preservative Td (adult) preservative 2023-10-02 00:00:00 Completed Rhett Michelle Saw Vital Signs Vital Name Observation Time Observation Value Comments S madelin BP Systolic 2024-03-20 10:00:00 114 mm[Hg] Fuentes Spring BP Diastolic 2024-03-20 10:00:00 81 mm[Hg] Chilo Spring Weight Measured 2024-03-20 10:00:00 206.00 pounds Rhett Spring Height Measured 2024-03-20 10:00:00 65.00 inches Rhett Spring Body Temperature 2024-03-20 10:00:00 98.20 degrees Rhett F Saw Heart Rate 2024-03-20 10:00:00 68.00 /min Caitlin en F Saw Respiratory Rate 2024-03-20 10:00:00 18.00 /min Rhett F Saw BP Systolic 2024-03-13 09:00:00 115 mm[Hg] Step hen F Saw BP Diastolic 2024-03-13 09:00:00 79 mm[Hg] Chilo phen F Saw Weight Measured 2024-03-13 09:00:00 205.60 pounds Rhett F Saw Height Measured 2024-03-13 09:00:00 65.00 inches Rhett F Saw Body Temperature 2024-03-13 09:00:00 98.20 degrees Rhett F Saw Heart Rate 2024-03-13 09:00:00 69.00 /min Caitlin en F Saw Respiratory Rate 2024-03-13 09:00:00 18.00 /min Rhett F Saw Height Measured 2023-10-02 09:12:00 65.00 inches Rhett F Saw Body Temperature 2023-10-02 09:12:00 98.10 degrees Rhett F Saw Heart Rate 2023-10-02 09:12:00 71.00 /min Caitlin en F Saw Respiratory Rate 2023-10-02 09:12:00 18.00 /min Rhett F Saw BP Systolic 2023-10-02 09:12:00 137 mm[Hg] Step hen F Saw BP Diastolic 2023-10-02 09:12:00 86 mm[Hg] Chilo phen F Saw Weight Measured 2023-10-02 09:12:00 210.40 pounds Rhett [...] Height Measured 2021-06-15 11:56:00 65.00 inches Rhett F Saw Body Temperature 2021-06-15 11:56:00 98.00 degrees Rhett F Saw Heart Rate 2021-06-15 11:56:00 118.00 /min Step hen F Saw Respiratory Rate 2021-06-15 11:56:00 18.00 /min Rhett F Saw BP Systolic 2021-05-26 13:06:00 Step hen F Saw BP Diastolic 2021-05-26 13:06:00 Chilo phen F Saw Weight Measured 2021-05-26 13:06:00 184.00 pounds Rhett F Saw Height Measured 2021-05-26 13:06:00 65.00 inches Rhett F Saw Body Temperature 2021-05-26 13:06:00 Rhett F Saw Heart Rate 2021-05-26 13:06:00 Caitlin en F Saw Respiratory Rate 2021-05-26 13:06:00 Rhett F Saw BP Systolic 2021-04-07 15:51:00 128 mm[Hg] Step hen F Saw BP Diastolic 2021-04-07 15:51:00 78 mm[Hg] Chilo Spring Weight Measured 2021-04-07 15:51:00 184.60 pounds Rhett Michelle Spring Height Measured 2021-04-07 15:51:00 65.00 inches Rhett Michelle Spring Body Temperature 2021-04-07 15:51:00 98.90 degrees Rhettjose Spring Heart Rate 2021-04-07 15:51:00 73.00 /min Caitlin en Michelle Sprign Respiratory Rate 2021-04-07 15:51:00 Rhettjose Spring BP [...] Goal Plan of Care Note [code = 96520-8] Goal Plan of Care Note [code = 00720-3] Goal Plan of Care Note [code = 11163-5] Goal Plan of Care Note [code = 78398-6] Goal Plan of Care Note [code = 03975-4] Goal Plan of Care Note [code = 63633-0] Goal Plan of Care Note [code = 89979-3] Goal Plan of Care Note [code = 13721-2] Goal Plan of Care Note [code = 70931-0] Goal Plan of Care Note [code = 22741-0] Goal Plan of Care Note [code = 24004-5] Goal Plan of Care Note [code = 67672-5] Goal Plan of Care Note [code = 20590-2] Goal Plan of Care Note [code = 77282-0] Goal Plan of Care Note [code = 70853-7] Goal Plan of Care Note [code = 07712-5] Goal Plan of Care Note [code = 91934-6] Goal Plan of Care Note [code = 17197-3] Goal Plan of Care Note [code = 20829-3] Goal Plan of Care Note [code = 95911-0] Goal Plan of Care Note [code = 52389-2] Goal Plan of Care Note [code = 00910-6] Goal Plan of Care Note [code = 16309-9] Goal Plan of Care Note [code = 03631-0] Goal Plan of Care Note [code = 65297-8] Goal Plan of Care Note [code = 86080-7] Goal Plan of Care Note [code = 18879-8] Goal Plan of Care Note [code = 77925-9] Goal Plan of Care Note [code = 23265-4] Goal Plan of Care Note [code = 91338-3] Goal Plan of Care Note [code = 87240-3] Goal Plan of Care Note [code = 67323-6] Goal Plan of Care Note [code = 58234-5] Goal Plan of Care Note [code = 70953-2] Encounters Start Date/Time End Date/Time Encounter Type Admission Type Attending [facility] Care Department Encounter ID Source 2024-03-20 09:18:36 2024-03-20 09:18:36 Outpatient SFA [id number] Rhett Spring 2024-03-20 00:00:00 2024-03-20 00:00:00 Outpatient Visit [id number] Rhett Spring 2024-03-13 09:03:52 2024-03-13 09:03:52 Outpatient SFA [id number] Rhett Spring 2023-10-02 09:03:34 2023-10-02 09:03:34 Outpatient SFA [id number] Rhett Spring 2023-10-02 00:00:00 2023-10-02 00:00:00 Outpatient Visit [id number] Rhett Spring 2022-09-12 17:43:57 2022-09-12 17:43:57 Outpatient SFA [id number] Rhett Spring 2022-09-11 16:57:15 2022-09-11 16:57:15 Outpatient SFA 0424 Rhett Spring 2022-06-03 11:20:45 2022-06-03 11:20:45 Outpatient SFA [id number] Rhett Spring 2022-03-23 11:23:27 2022-03-23 11:23:27 Outpatient SFA 1103 Rhett Spring 2022-03-23 00:00:00 2022-03-23 00:00:00 Outpatient Visit [id number] Results Test Description Test Time Test Comments Results Result Co mments Source HEPATITIS PANEL, [id number] 02:06:38* Test Item Value Reference Range Interpretation Comme nts HEPATITIS A IgM (test code = 88125) NON-REACTIVE NON-REACTIVE HEPATITIS B CORE IgM (test code = 4644) NON-REACTIVE NON-REACTIVE HEPATITIS B SURF AG (test code = 2739) NON-REACTIVE NON-REACTIVE HEPATITIS C ANTIBODY (test code = 4675) NON-REACTIVE NON-REACTIVE INTERPRETATION HEPATITIS A: (test code = 2552) (NOTE) Hepatitis A sero logy shows no evidence of acute hepatitis A. INTERPRETATION HEPATITIS B: (test code = 79732) (NOTE) Hepatitis B sero logy shows no evidence of acute hepatitis B andno indication of exposure to hepatitis B virus in the previous ange eight months. INTERPRETATION HEPATITIS C: (test code = 98609) (NOTE) Hepatitis C sero logy shows no evidence of exposure to hepatitisC virus at this time. It can take up to 12 months after exposure tothe hepatitis C virus for antibodies to become detectable in the blood in certain patients. UNLESS OTHERWISE INDICATED, ALL TESTING PERFORMED AT [facility] [address] [place] [address] LACQUER MAKER: CHIDI RUIZ M.D. [place] NUMBER [id number] [facility] [place]. [id number] 01:30:19* Test Item Value Reference Range Interpretation Comme nts RPR RESULT (test code = 3501) NON-REACTIVE NON-REACTIVE RPR TITER (test code = 3500) NOT INDIC. TITER NOT INDIC. HIV 1/2 4TH GEN, RFLX [id number] 00:00:00* Test Item Value Reference Range Interpretation Comme nts HIV 1/2 4TH GEN, RFLX CONF ( test code = 3514) NON-REACTIVE Rhett [id number] 00:00:00* Test Item Value Reference Range Interpretation Comme nts RPR RESULT (test code = 3501) NON-REACTIVE RPR TITER (test code = 3500) NOT INDIC. TITER Rhett SpringACUTE HEPATITIS [id number] 00:00:00* Test Item Value Reference Range Interpretation Comme nts HEPATITIS A IgM (test code = 91049) NON-REACTIVE HEPATITIS B CORE IgM (test c ode = 4644) NON-REACTIVE HEPATITIS B SURF AG (test co de = 2739) NON-REACTIVE HEPATITIS C ANTIBODY (test c ode = 4675) NON-REACTIVE INTERPRETATION HEPATITIS A: (test code = 2552) (NOTE) INTERPRETATION HEPATITIS B: (test code = 55494) (NOTE) INTERPRETATION HEPATITIS C: (test code = 16147) (NOTE) Rhett SpringCT/NG, NAAT, [id number] 14:38:25* Test Item Value Reference Range Interpretation Comme nts CHLAMYDIA, NAAT, URINE (test code = 72022) NEGATIVE NEGATIVE Testing is perfo rmed with Devi SHIRLEY 6800/8800 systems usingreal-time polymerase chain reaction (PCR) method. A negative result does not exclude low level infection, specimensampling error, or collection error. GONORRHEA, NAAT, URINE (test code = 40942) NEGATIVE NEGATIVE Testing is perfo rmed with Devi SHIRLEY 6800/8800 systems usingreal-time polymerase chain reaction (PCR) method. A negative result does not exclude low level infection, specimensampling error, or collection error. CT/NG, NAAT, [id number] 00:00:00* Test Item Value Reference Range Interpretation Comme nts CHLAMYDIA, NAAT, URINE (test code = 78357) NEGATIVE GONORRHEA, NAAT, URINE (test code = 83156) NEGATIVE Rhett SpringVAGINAL PATHOGENS DNA [id number] 00:00:00* Test Item Value Reference Range Interpretation Comme nts ALEJANDRO SPECIES (test code = 97296) TEST NOT PERFORMED G. VAGINALIS (test code = 67674) TEST NOT PERFORMED T. VAGINALIS (test code = 51496) TEST NOT PERFORMED Rhett Martinez AniyaP, TP, ACOG, AGE-BASED, DNA [id number] 00:00:00* Test Item Value Reference Range Interpretation Comme nts SOURCE: (test code = 8001) Cervical/Endocervical SLIDES: (test code = 8011) 2 LMP: (test code = 8021) 09/17/2023 SPECIMEN ADEQUACY: (test code = 50746) (NOTE) INTERPRETATION: (test code = 95571) UNSATISFACTORY; SEE BELOW OTHER COMMENTS: (test code = 8081) (NOTE) PURCHASING BUYER: (test code = 8101) Jazmyn Blas TECHNOLOGIST: (test code = 8111) Lucie Marie [facility](ASCP) [facility] LOCATION: (test code = 94864) (NOTE) CPT: (test code = 8140) (NOTE) Rhett Martinez AustinHPV HIGH RISK IF ASC-US, THINPREP [REFLEX]2023-10-04 00:00:00* Test Item Value Reference Range Interpretation Comme nts HPV HIGH RISK IF ASC-US, THINPREP (test code = 31371) CRITERIA NOT MET Rhett Martinez AustinRPR REFLEX TO T. PALLIDUM - [id number] 00:00:00* Test Item Value Reference Range Interpretation Comme nts RPR (test code = 21411) NON-REACTIVE RPR TITER (test code = 3500) NOT INDIC. TITER Rhett Martinez AustinCT/NG, NAAT, [id number] 00:00:00* Test Item Value Reference Range Interpretation Comme nts CHLAMYDIA, NAAT, THINPREP (t est code = 04501) NEGATIVE GONORRHEA, NAAT, THINPREP (t est code = 47991) NEGATIVE Rhett SpringHEPATITIS PROFILE (A,B,C)2023-10-03 00:00:00* Test Item Value Reference Range Interpretation Comme nts HEPATITIS A TOTAL AB (test c ode = 2725) REACTIVE HEPATITIS B SURF AG (test co de = 2739) NON-REACTIVE HEP B CORE TOTAL AB (test co de = 2729) NON-REACTIVE HEPATITIS B SURFACE AB (test code = 2737) EQUIVOCAL HEPATITIS C ANTIBODY (test c ode = 4675) NON-REACTIVE INTERPRETATION HEPATITIS A: (test code = 2552) (NOTE) INTERPRETATION HEPATITIS B: (test code = 57151) (NOTE) INTERPRETATION HEPATITIS C: (test code = 64852) (NOTE) Rhett Martinez AustinHIV 1/2 4TH GEN, RFLX [id number] 00:00:00* Test Item Value Reference Range Interpretation Comme nts HIV 1/2 4TH GEN, RFLX CONF ( test code = 3514) NON-REACTIVE Rhett SpringHEPATITIS A IgM [REFLEX]2023-10-03 00:00:00* Test Item Value Reference Range Interpretation Comme nts HEPATITIS A IgM (test code = 2728) NON-REACTIVE Rhett SpringPAP TEST, THINPREP, [id number] 07:15:37* Test Item Value Reference Range Interpretation Comme nts SOURCE: (test code = 8001) Cervical/Endoce rvical SLIDES: (test code = 8011) 1 LMP: (test code = 8021) 08/12/2021 SPECIMEN ADEQUACY: (test code = 70848) (NOTE) Satisfactory for evaluation. Endocervical cells/transformation zone component present. INTERPRETATION: (test code = 10319) NILM/NO EPITH. ABNORMALITY;SEE BELOW --- - NEGATIVE FOR INTRAEPITHELIAL LESION OR MALIGNANCY (NILM) ---- OTHER COMMENTS: (test code = 8081) (NOTE) Shift in aide suggestive of bacterial vaginosis. PURCHASING BUYER : (test code = 8101) VIOLET Connelly(ASC) [facility] TECHNOLOGIST: (test code = 8111) VIOLET NARAYANAN(ASCP) LOCATION: (test code = 89547) (NOTE) Specimens proces sed and interpreted at [facility], [address] [place] [address], , CLIA: [id number] CPT: (test code = 8140) (NOTE) [address] UNLESS OTH ERWISE INDICATED, COMPUTER AIDED AND PURCHASING BUYER SCREENING PERFORMED. The Pap test is a screening test with an inherent, but low probability of error. Your patient should be reminded to consult you immediately if she experiences any suspicious signs or symptoms, regardless of her Pap test result. An alternate report format containing images or consolidated prior Pap history is available as applicable. PAP TEST, THINPREP, [id number] 00:00:00* Test Item Value Reference Range Interpretation Comme nts SOURCE: (test code = 8001) Cervical/Endocervical SLIDES: (test code = 8011) 1 LMP: (test code = 8021) 08/12/2021 SPECIMEN ADEQUACY: (test code = 75890) (NOTE) INTERPRETATION: (test code = 72317) NILM/NO EPITH. ABNORMALITY;SEE BELOW OTHER COMMENTS: (test code = 8081) (NOTE) PURCHASING BUYER: (test code = 8101) VIOLET Connelly(ASCP)IAC QC TECHNOLOGIST: (test code = 8111) VIOLET NARAYANAN(ASCP) LOCATION: (test code = 14257) (NOTE) CPT: (test code = 8140) (NOTE) PAP TEST, THINPREP, [id number] 00:00:00* Test Item Value Reference Range Interpretation Comme nts SOURCE: (test code = 8001) Cervical/Endocervical SLIDES: (test code = 8011) 1 LMP: (test code = 8021) 08/12/2021 SPECIMEN ADEQUACY: (test code = 89084) (NOTE) INTERPRETATION: (test code = 04940) NILM/NO EPITH. ABNORMALITY;SEE BELOW OTHER COMMENTS: (test code = 8081) (NOTE) PURCHASING BUYER: (test code = 8101) VIOLET Connelly(ASCP)IAC QC TECHNOLOGIST: (test code = 8111) VIOLET NARAYANAN(ASCP) LOCATION: (test code = 83572) (NOTE) CPT: (test code = 8140) (NOTE) Rhett KwanP TEST, THINPREP, [id number] 00:00:00* Test Item Value Reference Range Interpretation Comme nts SOURCE: (test code = 8001) Cervical/Endocervical SLIDES: (test code = 8011) 1 LMP: (test code = 8021) 08/12/2021 SPECIMEN ADEQUACY: (test code = 18014) (NOTE) INTERPRETATION: (test code = 69219) NILM/NO EPITH. ABNORMALITY;SEE BELOW OTHER COMMENTS: (test code = 8081) (NOTE) PURCHASING BUYER: (test code = 8101) VIOLET Connelly(ASCP)IAC QC TECHNOLOGIST: (test code = 8111) VIOLET NARAYANAN(ASCP) LOCATION: (test code = 02376) (NOTE) CPT: (test code = 8140) (NOTE) Rhett Martinez AustinCT/NG, TMA, [id number] 19:15:55* Test Item Value Reference Range Interpretation Comme nts GONORRHEA, TMA (test code = 95654) NEGATIVE NEGATIVE Assay methodolog y is nucleic acid amplification by milling machine operator gear mediated amplification (TMA) utilizing the Aptima Combo 2 Assay. CHLAMYDIA, TMA (test code = 44482) NEGATIVE NEGATIVE Assay methodolog y is nucleic acid amplification by milling machine operator gear mediated amplification (TMA) utilizing the Aptima Combo 2 Assay. HPV HIGH RISK WITH GENOTYPE, [id number] 15:56:35* Test Item Value Reference Range Interpretation Comme nts HPV HIGH RISK INTERP (test code = 30848) POSITIVE NEGATIVE A HPV 16 (test code = 46670) NEGATIVE HPV 18 (test code = 96721) NEGATIVE HPV, HR, OTHER GENOTYPES (test code = 55711) POSITIVE A Testing methodol ogy is real-time PCR utilizing hydrolysis probes with the Devi Shirley 4800 system. The test individually detects genotypes 16 and 18, as well as the other 12 high risk types (31,33,35,39,45,51,52,56 ,58,59,66,68). The expected result is negative. A negative result does not rule out the presence of HPV not included in the genotype set, a low level of infection or specimen sampling error. UNLESS OTHERWISE INDICATED, ALL TESTING PERFORMED [facility] [address] [place] [address] LACQUER MAKER: HANNAH HERNÁNDEZ M.D. CLIA NUMBER [id number] [facility] [place]. [id number] GC AND CHLAMYDIA AMPLIFIED, [id number] 00:00:00* Test Item Value Reference Range Interpretation Comme nts GONORRHEA, TMA (test code = 88550) NEGATIVE CHLAMYDIA, TMA (test code = 62841) NEGATIVE HPV HIGH RISK WITH GENOTYPE, [id number] 00:00:00* Test Item Value Reference Range Interpretation Comme nts HPV HIGH RISK INTERP (test c ode = 93763) POSITIVE HPV 16 (test code = 57632) NEGATIVE HPV 18 (test code = 74200) NEGATIVE HPV, HR, OTHER GENOTYPES (te st code = 06379) POSITIVE GC AND CHLAMYDIA AMPLIFIED, [id number] 00:00:00* Test Item Value Reference Range Interpretation Comme nts GONORRHEA, TMA (test code = 81295) NEGATIVE CHLAMYDIA, TMA (test code = 23061) NEGATIVE Rhett SpringHPV HIGH RISK WITH GENOTYPE, [id number] 00:00:00* Test Item Value Reference Range Interpretation Comme nts HPV HIGH RISK INTERP (test c ode = 05061) POSITIVE HPV 16 (test code = 22382) NEGATIVE HPV 18 (test code = 67978) NEGATIVE HPV, HR, OTHER GENOTYPES (te st code = 73064) POSITIVE Rhett SpringGC AND CHLAMYDIA AMPLIFIED, [id number] 00:00:00* Test Item Value Reference Range Interpretation Comme nts GONORRHEA, TMA (test code = 23060) NEGATIVE CHLAMYDIA, TMA (test code = 34365) NEGATIVE Rhett SpringHPV HIGH RISK WITH GENOTYPE, [id number] 00:00:00* Test Item Value Reference Range Interpretation Comme nts HPV HIGH RISK INTERP (test c ode = 18761) POSITIVE HPV 16 (test code = 44235) NEGATIVE HPV 18 (test code = 77475) NEGATIVE HPV, HR, OTHER GENOTYPES (te st code = 47067) POSITIVE Rhett SpringLIPID [id number] 04:09:03* Test Item Value Reference Range Interpretation [...] SPECIMENS. FOR MOREINFORMATION, SEE CLIENT ANNOUNCEMENT AT [email or web address] RISK RATIO LDL/HDL (test code = 2238) 3.69 RATIO <3.22 H COMPREHENSIVE METABOLIC [id number] 04:09:03* Test Item Value Reference Range Interpretation [...] G/DL 3.5-5.2 CALC GLOBULIN (test code = 2239) 2.9 G/DL 1.9-3.7 CALC A/G RATIO (test code = 2233) 1.6 RATIO 1.0-2.6 BILIRUBIN, TOTAL (test code = 2206) 1.0 MG/DL See_Comment [Automated me ssage] The system which generated this result transmitted reference range: <=1.2. The reference range was not used to interpret this result as normal/abnormal. ALKALINE PHOSPHATASE (test code = 2203) 52 U/L 40-112 AST (test code = 2217) 19 U/L 9-40 ALT (test code = 2218) 13 U/L 5-40 UNLESS OTHERWISE INDICATED, ALL TESTING PERFORMED [facility] [address] [place] [address] LACQUER MAKER: HANNAH HERNÁNDZE M.D. CLIA NUMBER [id number] [facility] [place]. [id number] HEMOGLOBIN [id number] 03:55:46* Test Item Value Reference Range Interpretation Comme nts HEMOGLOBIN A1c (test code = 19989) 5.5 % 4.2-5.6 CBC W/AUTO DIFF WITH [id number] 03:05:16* Test Item Value Reference Range Interpretation [...] = 1065) 0.0 /100 WBC'S See_Comment [Automated Pipettea ge] The system which generated this result [...] 0.00-0.10 ABS NUCLEATED RBCS (test code = 92367) 0.00 K/UL 0.00-0.11 CBC W/AUTO [id number] 00:00:00* Test Item Value Reference Range Interpretation [...] ABS NUCLEATED RBCS (test cod e = 04113) 0.00 K/UL HEMOGLOBIN [id number] 00:00:00* Test Item Value Reference Range Interpretation Comme nts HEMOGLOBIN A1c (test code = 74213) 5.5 % LIPID [id number] 00:00:00* Test Item Value Reference Range Interpretation Comme nts CHOLESTEROL (test code = 2210) 263 MG/DL TRIGLYCERIDES (test code = 2232) 85 MG/DL HDL CHOLESTEROL (test code = 2220) 52 MG/DL CALC LDL CHOL (test code = 2237) 192 MG/DL RISK RATIO LDL/HDL (test cod e = 2238) 3.69 RATIO COMPREHENSIVE METABOLIC [id number] 00:00:00* Test Item Value Reference Range Interpretation Comme nts GLUCOSE (test code = 2217) 78 MG/DL BUN (test code = 2208) 16 MG/DL CREATININE (test code = 2214) 0.75 MG/DL eGFR (2020 CKD-EPI) (test code = 83584) 113 ML/MIN/1.73 CALC BUN/CREAT (test code = [...] code = 2219) 13 U/L CBC W/AUTO [id number] 00:00:00* Test Item Value Reference Range Interpretation [...] ABS NUCLEATED RBCS (test cod e = 89846) 0.00 K/UL Rhett SpringHEMOGLOBIN [id number] 00:00:00* Test Item Value Reference Range Interpretation Comme dav HEMOGLOBIN A1c (test code = 22792) 5.5 % Rhett SpringLIPID [id number] 00:00:00* Test Item Value Reference Range Interpretation Comme nts CHOLESTEROL (test code = 2210) 263 MG/DL TRIGLYCERIDES (test code = 2232) 85 MG/DL HDL CHOLESTEROL (test code = 2220) 52 MG/DL CALC LDL CHOL (test code = 2237) 192 MG/DL RISK RATIO LDL/HDL (test cod e = 2238) 3.69 RATIO Rhett SpringCOMPREHENSIVE METABOLIC [id number] 00:00:00* Test Item Value Reference Range Interpretation Comme nts GLUCOSE (test code = 2217) 78 MG/DL BUN (test code = 2208) 16 MG/DL CREATININE (test code = 2214) 0.75 MG/DL eGFR (2020 CKD-EPI) (test code = 91105) 113 ML/MIN/1.73 CALC BUN/CREAT (test code = [...] (test code = 2219) 13 U/L Rhett SpringCBC W/AUTO [id number] 00:00:00* Test Item Value Reference Range Interpretation [...] ABS NUCLEATED RBCS (test cod e = 36586) 0.00 K/UL Rhett SpringHEMOGLOBIN [id number] 00:00:00* Test Item Value Reference Range Interpretation Comme nts HEMOGLOBIN A1c (test code = 49261) 5.5 % Rhett SpringLIPID [id number] 00:00:00* Test Item Value Reference Range Interpretation Comme nts CHOLESTEROL (test code = 2210) 263 MG/DL TRIGLYCERIDES (test code = 2232) 85 MG/DL HDL CHOLESTEROL (test code = 2220) 52 MG/DL CALC LDL CHOL (test code = 2237) 192 MG/DL RISK RATIO LDL/HDL (test cod e = 2238) 3.69 RATIO Rhett SpringCOMPREHENSIVE METABOLIC [id number] 00:00:00* Test Item Value Reference Range Interpretation Comme nts GLUCOSE (test code = 2217) 78 MG/DL BUN (test code = 2208) 16 MG/DL CREATININE (test code = 2214) 0.75 MG/DL eGFR (2020 CKD-EPI) (test code = 09566) 113 ML/MIN/1.73 CALC BUN/CREAT (test code = [...] 1.6 RATIO BILIRUBIN, TOTAL (test code = 7) 1.0 MG/DL ALKALINE PHOSPHATASE (test code = 2204) 52 U/L AST (test code = 2218) 19 U/L ALT (test code = 2219) 13 U/L [facility] [id number] 00:00:00* Test Item Value Reference Range Interpretation [...] ABS NUCLEATED RBCS (test cod e = 68483) 0.00 K/UL Rhett SpringC W/AUTO [id number] 00:00:00* Test Item Value Reference Range Interpretation [...] ABS NUCLEATED RBCS (test cod e = 86166) 0.00 K/UL COMPREHENSIVE METABOLIC [id number] 00:00:00* Test Item Value Reference Range Interpretation Comme nts GLUCOSE (test code = 2217) 88 MG/DL BUN (test code = 2208) 13 MG/DL CREATININE (test code = 2214) 0.74 MG/DL eGFR AMER. (test cod e = 20082) 131 ML/MIN/1.73 eGFR NON- AMER. (test code = 81572) 113 ML/MIN/1.73 CALC BUN/CREAT (test code = [...] ALT (test code = 2219) 14 U/L [id number] 00:00:00* Test Item Value Reference Range Interpretation Comme nts TSH, THIRD GENERATION (test code = 2821) 1.750 UIU/ML COMPREHENSIVE METABOLIC [id number] 00:00:00* Test Item Value Reference Range Interpretation Comme nts GLUCOSE (test code = 2217) 88 MG/DL BUN (test code = 2208) 13 MG/DL CREATININE (test code = 2214) 0.74 MG/DL eGFR AMER. (test cod e = 24055) 131 ML/MIN/1.73 eGFR NON- AMER. (test code = 55507) 113 ML/MIN/1.73 CALC BUN/CREAT (test code = [...] (test code = 2219) 14 U/L Rhett [id number] 00:00:00* Test Item Value Reference Range Interpretation Comme nts TSH, THIRD GENERATION (test code = 2821) 1.750 UIU/ML Rhett SpringCBC W/AUTO [id number] 00:00:00* Test Item Value Reference Range Interpretation [...] ABS NUCLEATED RBCS (test cod e = 05965) 0.00 K/UL Rhett SpringCOMPREHENSIVE METABOLIC [id number] 00:00:00* Test Item Value Reference Range Interpretation Comme nts GLUCOSE (test code = 2217) 88 MG/DL BUN (test code = 2208) 13 MG/DL CREATININE (test code = 2214) 0.74 MG/DL eGFR AMER. (test cod e = 00917) 131 ML/MIN/1.73 eGFR NON- AMER. (test code = 05436) 113 ML/MIN/1.73 CALC BUN/CREAT (test code = [...] (test code = 2219) 14 U/L Rhett [id number] 00:00:00* Test Item Value Reference Range Interpretation Comme nts TSH, THIRD GENERATION (test code = 2821) 1.750 UIU/ML Rhett SpringSARS-CoV-2 (COVID-19) by RT-PCR (HIGH RISK)2019-11-25 00:00:00* Test Item Value Reference Range Interpretation Comme nts SARS-CoV-2 INTERPRETATION (test code = 73311) NEGATIVE SOURCE (test code = 12314) NASOPHARYNGEAL SARS-CoV-2 (COVID-19) by RT-PCR (HIGH RISK)2019-11-25 00:00:00* Test Item Value Reference Range Interpretation Comme nts SARS-CoV-2 INTERPRETATION (test code = 67679) NEGATIVE SOURCE (test code = 41654) NASOPHARYNGEAL Rhett SpringSARS-CoV-2 (COVID-19) by RT-PCR (HIGH RISK)2019-11-25 00:00:00* Test Item Value Reference Range Interpretation Comme nts SARS-CoV-2 INTERPRETATION (test code = 33765) NEGATIVE SOURCE (test code = 08506) NASOPHARYNGEAL Rhett SpringCOMPREHENSIVE METABOLIC [id number] 00:00:00* Test Item Value Reference Range Interpretation Comme nts GLUCOSE (test code = 2217) 96 MG/DL BUN (test code = 2208) 13 MG/DL CREATININE (test code = 2214) 1.08 MG/DL eGFR AMER. (test cod e = 68585) 84 ML/MIN/1.73 eGFR NON- AMER. (test code = 61447) 73 ML/MIN/1.73 CALC BUN/CREAT (test code = [...] code = 2219) 13 U/L COMPREHENSIVE METABOLIC [id number] 00:00:00* Test Item Value Reference Range Interpretation Comme nts GLUCOSE (test code = 2217) 96 MG/DL BUN (test code = 2208) 13 MG/DL CREATININE (test code = 2214) 1.08 MG/DL eGFR AMER. (test cod e = 87973) 84 ML/MIN/1.73 eGFR NON- AMER. (test code = 69707) 73 ML/MIN/1.73 CALC BUN/CREAT (test code = [...] code = 2219) 13 U/L Rhett Martinez AustinLIPID [id number] 00:00:00* Test Item Value Reference Range Interpretation Comme nts CHOLESTEROL (test code = 2210) 230 MG/DL TRIGLYCERIDES (test code = 2232) 145 MG/DL HDL CHOLESTEROL (test code = 2220) 50 MG/DL CALC LDL CHOL (test code = 2237) 151 MG/DL RISK RATIO LDL/HDL (test cod e = 2238) 3.02 RATIO CBC W/AUTO [id number] 00:00:00* Test Item Value Reference Range Interpretation [...] (test code = 1015) 264 K/UL HEMOGLOBIN [id number] 00:00:00* Test Item Value Reference Range Interpretation Comme nts HEMOGLOBIN A1c (test code = 84737) 5.4 % LIPID [id number] 00:00:00* Test Item Value Reference Range Interpretation Comme nts CHOLESTEROL (test code = 2210) 230 MG/DL TRIGLYCERIDES (test code = 2232) 145 MG/DL HDL CHOLESTEROL (test code = 2220) 50 MG/DL CALC LDL CHOL (test code = 2237) 151 MG/DL RISK RATIO LDL/HDL (test cod e = 2238) 3.02 RATIO Rhett SpringCBC W/AUTO [id number] 00:00:00* Test Item Value Reference Range Interpretation [...] code = 1015) 264 K/UL Rhett SpringHEMOGLOBIN [id number] 00:00:00* Test Item Value Reference Range Interpretation Comme dav HEMOGLOBIN A1c (test code = 08393) 5.4 % Rhett SpringCOMPREHENSIVE METABOLIC [id number] 00:00:00* Test Item Value Reference Range Interpretation Comme nts GLUCOSE (test code = 2217) 96 MG/DL BUN (test code = 2208) 13 MG/DL CREATININE (test code = 2214) 1.08 MG/DL eGFR AMER. (test cod e = 04842) 84 ML/MIN/1.73 eGFR NON- AMER. (test code = 54782) 73 ML/MIN/1.73 CALC BUN/CREAT (test code = [...] code = 2219) 13 U/L Rhett SpringLIPID [id number] 00:00:00* Test Item Value Reference Range Interpretation Comme nts CHOLESTEROL (test code = 2210) 230 MG/DL TRIGLYCERIDES (test code = 2232) 145 MG/DL HDL CHOLESTEROL (test code = 2220) 50 MG/DL CALC LDL CHOL (test code = 2237) 151 MG/DL RISK RATIO LDL/HDL (test cod e = 2238) 3.02 RATIO Rhett Martinez SawCBC W/AUTO [id number] 00:00:00* Test Item Value Reference Range Interpretation [...] code = 1015) 264 K/UL Rhett SpringHEMOGLOBIN [id number] 00:00:00* Test Item Value Reference Range Interpretation Comme nts HEMOGLOBIN A1c (test code = 39469) 5.4 % Rhett Martinez SawCOMPREHENSIVE METABOLIC [id number] 00:00:00* Test Item Value Reference Range Interpretation Comme nts GLUCOSE (test code = 2217) 79 MG/DL BUN (test code = 2208) 14 MG/DL CREATININE (test code = 2214) 0.86 MG/DL eGFR AMER. (test cod e = 82687) 114 ML/MIN/1.73 eGFR NON- AMER. (test code = 83473) 98 ML/MIN/1.73 CALCULATED BUN/CREAT (test code = 2235) 16 RATIO SODIUM (test code = 2231) 141 MEQ/L POTASSIUM (test code = 2228) 4.2 MEQ/L CHLORIDE (test code = 2215) 105 MEQ/L CARBON DIOXIDE (test code = 2206) 26 MEQ/L CALCIUM (test code = 2209) 9.6 MG/DL PROTEIN, TOTAL (test code = 222) 6.8 G/DL ALBUMIN (test code = 2201) 4.1 G/DL CALCULATED GLOBULIN (test code = 2240) 2.7 G/DL CALCULATED A/G RATIO (test code = 2234) 1.5 RATIO BILIRUBIN, TOTAL (test code = 2207) 0.8 MG/DL ALKALINE PHOSPHATASE (test code = 2204) 69 U/L SGOT (AST) (test code = 2218) 15 U/L SGPT (ALT) (test code = 2219) 14 U/L LIPID [id number] 00:00:00* Test Item Value Reference Range Interpretation Comme nts CHOLESTEROL (test code = 2210) 213 MG/DL TRIGLYCERIDES (test code = 2232) 100 MG/DL HDL CHOLESTEROL (test code = 2220) 63 MG/DL CALCULATED LDL CHOL (test co de = 223) 130 MG/DL RISK RATIO LDL/HDL (test cod e = 223) 2.06 RATIO CBC W/AUTO [id number] 00:00:00* Test Item Value Reference Range Interpretation [...] (test code = 1015) 262 K/UL HEMOGLOBIN [id number] 00:00:00* Test Item Value Reference Range Interpretation Comme nts HEMOGLOBIN A1c (test code = 28143) 5.8 % [id number] 00:00:00* Test Item Value Reference Range Interpretation Comme nts TSH (test code = 2821) 1.5 UIU/ML COMPREHENSIVE METABOLIC [id number] 00:00:00* Test Item Value Reference Range Interpretation Comme nts GLUCOSE (test code = 2217) 79 MG/DL BUN (test code = 2208) 14 MG/DL CREATININE (test code = 2214) 0.86 MG/DL eGFR AMER. (test cod e = 14286) 114 ML/MIN/1.73 eGFR NON- AMER. (test code = 13778) 98 ML/MIN/1.73 CALCULATED BUN/CREAT (test code = [...] = 2219) 14 U/L Rhett F AustinLIPID [id number] 00:00:00* Test Item Value Reference Range Interpretation Comme nts CHOLESTEROL (test code = 2210) 213 MG/DL TRIGLYCERIDES (test code = 2232) 100 MG/DL HDL CHOLESTEROL (test code = 2220) 63 MG/DL CALCULATED LDL CHOL (test co de = 2237) 130 MG/DL RISK RATIO LDL/HDL (test cod e = 2238) 2.06 RATIO Rhett SpringCBC W/AUTO [id number] 00:00:00* Test Item Value Reference Range Interpretation [...] code = 1015) 262 K/UL Rhett SpringHEMOGLOBIN [id number] 00:00:00* Test Item Value Reference Range Interpretation Comme dav HEMOGLOBIN A1c (test code = 88446) 5.8 % Rhett [id number] 00:00:00* Test Item Value Reference Range Interpretation Comme nts TSH (test code = 2821) 1.5 UIU/ML Rhett SpringCOMPREHENSIVE METABOLIC [id number] 00:00:00* Test Item Value Reference Range Interpretation Comme nts GLUCOSE (test code = 2217) 79 MG/DL BUN (test code = 2208) 14 MG/DL CREATININE (test code = 2214) 0.86 MG/DL eGFR AMER. (test cod e = 93512) 114 ML/MIN/1.73 eGFR NON- AMER. (test code = 25026) 98 ML/MIN/1.73 CALCULATED BUN/CREAT (test code = [...] (test code = 2219) 14 U/L Rhett SpringLIPID [id number] 00:00:00* Test Item Value Reference Range Interpretation Comme nts CHOLESTEROL (test code = 2210) 213 MG/DL TRIGLYCERIDES (test code = 2232) 100 MG/DL HDL CHOLESTEROL (test code = 2220) 63 MG/DL CALCULATED LDL CHOL (test co de = 2237) 130 MG/DL RISK RATIO LDL/HDL (test cod e = 2238) 2.06 RATIO Rhett SpringCBC W/AUTO [id number] 00:00:00* Test Item Value Reference Range Interpretation [...] code = 1015) 262 K/UL Rhett SpringHEMOGLOBIN [id number] 00:00:00* Test Item Value Reference Range Interpretation Comme [facility] HEMOGLOBIN A1c (test code = 68304) 5.8 % Rhett [id number] 00:00:00* Test Item Value Reference Range Interpretation Comme [facility] TSH (test code = 2821) 1.5 UIU/ML Rhett LovellSIC METABOLIC [id number] 00:00:00* Test Item Value Reference Range Interpretation Comme nts GLUCOSE (test code = 2217) 87 MG/DL BUN (test code = 2208) 15 MG/DL CREATININE (test code = 2214) 1.0 MG/DL eGFR AMER. (test cod e = 79106) 87 ML/MIN/1.73 eGFR NON- AMER. (test code = 92867) 72 ML/MIN/1.73 SODIUM (test code = 2231) 137 MEQ/L POTASSIUM (test code = 2228) 4.4 MEQ/L CHLORIDE (test code = 2215) 107 MEQ/L CARBON DIOXIDE (test code = 2206) 26 MEQ/L CALCIUM (test code = 2209) 9.8 MG/DL CBC W/AUTO [id number] 00:00:00* Test Item Value Reference Range Interpretation [...] (test code = 1015) 280 K/UL OSMOLALITY, [id number] 00:00:00* Test Item Value Reference Range Interpretation Comme nts OSMOLALITY, SERUM (test code = 2045) 296 MOSM/KG BASIC METABOLIC [id number] 00:00:00* Test Item Value Reference Range Interpretation Comme nts GLUCOSE (test code = 2217) 87 MG/DL BUN (test code = 2208) 15 MG/DL CREATININE (test code = 2214) 1.0 MG/DL eGFR AMER. (test cod e = 48770) 87 ML/MIN/1.73 eGFR NON- AMER. (test code = 72748) 72 ML/MIN/1.73 SODIUM (test code = 2231) 137 MEQ/L POTASSIUM (test code = 2228) 4.4 MEQ/L CHLORIDE (test code = 2215) 107 MEQ/L CARBON DIOXIDE (test code = 2206) 26 MEQ/L CALCIUM (test code = 2209) 9.8 MG/DL Rhett Martinez AustinCBC W/AUTO [id number] 00:00:00* Test Item Value Reference Range Interpretation [...] code = 1015) 280 K/UL Rhett SpringOSMOLALITY, [id number] 00:00:00* Test Item Value Reference Range Interpretation Comme nts OSMOLALITY, SERUM (test code = 2045) 296 MOSM/KG Rhett Martinez AustinBASIC METABOLIC [id number] 00:00:00* Test Item Value Reference Range Interpretation Comme nts GLUCOSE (test code = 2217) 87 MG/DL BUN (test code = 2208) 15 MG/DL CREATININE (test code = 2214) 1.0 MG/DL eGFR AMER. (test cod e = 65072) 87 ML/MIN/1.73 eGFR NON- AMER. (test code = 92153) 72 ML/MIN/1.73 SODIUM (test code = 2231) 137 MEQ/L POTASSIUM (test code = 2228) 4.4 MEQ/L CHLORIDE (test code = 2215) 107 MEQ/L CARBON DIOXIDE (test code = 2206) 26 MEQ/L CALCIUM (test code = 2209) 9.8 MG/DL Rhett F AustinCBC W/AUTO [id number] 00:00:00* Test Item Value Reference Range Interpretation [...] code = 1015) 280 K/UL Rhett SpringOSMOLALITY, [id number] 00:00:00* Test Item Value Reference Range Interpretation Comme nts OSMOLALITY, SERUM (test code = 2045) 296 MOSM/KG Rhett Spring Notes Date/Time Note Provider Source Rhett Hernandez [facility]2024-05-14 00:00:00 Rhett Hernandez [facility]
[2024-07-13 16:59] LABS: Influenza A Ag Negative; Influenza B Ag Negative; SARS-CoV-2 Antigen Rapid Res Negative (Negative)
--- NOTE | 2024-07-13 17:01 | EDPHYS ---
Physician Documentation [facility] Name: Kayli Mukherjee Age: 29 yrs Sex: Female : 1995 Arrival Date: 07/13/2024 Time: 15:32 Bed IW1 Private MD: ED Physician Bruno Ruffin HPI: 07/13 15:46 This 29 yrs old Black Female presents to ER via Unassigned with complaints of Sore kb Throat. 15:46 Pt is a 29 year old female who presents for sore throat that started 3 days ago. States kb the pain is worse on the left side. Has not checked temp to know if she has had a fever. Pt reports cough and congestion. 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 - Infectious Disease History:: Denies. - Social history:: Smoking status: Patient denies any tobacco usage or history of. ROS: 15:46 Constitutional: As per HPI kb Exam: 15:48 Constitutional: This is a well developed, well nourished patient who is awake, alert, kb and in no acute distress. Head/Face: Normocephalic, atraumatic. Cardiovascular: Regular rate Respiratory: Respirations even and unlabored. No increased work of breathing. Talking in full sentences Skin: Warm, dry with normal turgor. Normal color. MS/ Extremity: Pulses equal, no cyanosis. Neurovascular intact. Full, normal range of motion. Neuro: Awake and alert, GCS 15, oriented to person, place, time, and situation. 15:48 ENT: Posterior pharynx: swelling, that is mild, erythema, that is mild, Vital Signs: 16:51 BP 133 / 76; Pulse 89; Resp 16; Temp 98.5; Pulse Ox 100% on R/A; Weight 81.65 kg; iw Height 5 ft. 5 in. ; 16:51 Body Mass Index 29.95 (81.65 kg, 165.1 cm) iw MDM: 15:41 Medical Screening Exam initiated kb 15:48 Data reviewed: vital signs, nurses notes. 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 I considered the following discharge kb prescriptions or medication management in the emergency department I discussed and recommended Over The Counter medications, Antibiotics: At this time antibiotics are not recommended. Counseling: I had a detailed discussion with the patient and/or guardian regarding the historical points, exam findings, and any diagnostic results supporting the discharge/admit diagnosis, lab results, the need for outpatient follow up, a family practitioner, to return to the emergency department if symptoms worsen or persist or if there are any questions or concerns that arise at home. 07/13 15:49 Order name: Flu 07/13 15:49 Order name: SARS-COV-2 Antigen Rapid 07/13 16:20 Order name: COVID-19 Ag + Flu A+B Ag; Complete Time: 17:00 EDMS 07/13 16:20 Order name: Group A Streptococcus Rapid Sc; Complete Time: 17:00 EDMS 07/13 17:02 Order name: Throat Culture EDMS Administered Medications: No medications were administered Disposition: 07/14 12:34 Co-signature as Attending Physician, Bruno Ruffin MD I agree with the assessment and koko plan of care. Disposition Summary: 07/13/24 17:01 Discharge Ordered Notes: Location: Home kb Condition: Stable kb Diagnosis - Acute pharyngitis, unspecified kb Followup: kb - With: Emergency Department - When: As needed - Reason: Worsening of condition Followup: kb - With: Private Physician - When: 2 - 3 days - Reason: Recheck today's complaints, Continuance of care, Re-evaluation by your physician Discharge Instructions: - Discharge Summary Sheet kb - Sore Throat kb - Pharyngitis, Cvml-ta-[id number] kb Forms: - Medication Reconciliation Form kb - Antibiotic Education kb - Prescription Opioid Use kb - Patient Portal Instructions kb - Leadership Thank You Letter kb - Work release form jb4 Signatures: Dispatcher [employer] EDSimona Herrera, HYDRAULIC AND PLUMBING INSTALLER-C HYDRAULIC AND PLUMBING INSTALLER-Bruno Martinez MD MD cha Williams, Irene, RN RN iw Corrections: (The following items were deleted from the chart) 07/13 15:49 15:46 Pt is a 29 year old female who presents for sore throat that started 3 days ago. kb States the pain is worse on the left side. Has not checked temp to know if she has had a fever. . kb 16:20 16:19 Influenza Screen (A ordered. EDMS EDMS
--- NOTE | 2024-07-13 17:01 | ER ---
Nurse's Notes [facility] Name: Kayli Mukherjee Age: 29 yrs Sex: Female : 1995 Arrival Date: 07/13/2024 Time: 15:32 Bed IW1 Private MD: Diagnosis: Acute pharyngitis, unspecified Presentation: 07/13 15:55 Chief complaint: Patient states: sore throat , cough since Sunday. Coronavirus screen: iw Client presents with at least one sign or symptom that may indicate coronavirus-19. Ebola Screen: No symptoms or risks identified at this time. Initial Sepsis Screen: Does the patient meet any 2 criteria? No. Patient's initial sepsis screen is negative. Does the patient have a suspected source of infection? No. Patient's initial sepsis screen is negative. Risk Assessment: Do you want to hurt yourself or someone else? Patient reports no desire to harm self or others. Onset of symptoms was July 11, 2024. 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 - Infectious Disease History:: Denies. - Social history:: Smoking status: Patient denies any tobacco usage or history of. Assessment: 17:18 Reassessment: Patient appears in no apparent distress at this time. Patient and/or iw family updated on plan of care and expected duration. Pain level reassessed. Patient is alert, oriented x 3, equal unlabored respirations, skin warm/dry/pink. Vital Signs: 16:51 BP 133 / 76; Pulse 89; Resp 16; Temp 98.5; Pulse Ox 100% on R/A; Weight 81.65 kg; iw Height 5 ft. 5 in. ; 16:51 Body Mass Index 29.95 (81.65 kg, 165.1 cm) ED Course: 15:33 Patient arrived in ED. mr 15:41 Simona Mcclure FNP-C [facility] kb 15:41 Bruno Ruffin MD is Attending Physician. kb 15:56 Triage completed. iw 17:18 Marquita Sarabia, RN is Primary Nurse. iw Administered Medications: No medications were administered Outcome: 17:01 Discharge ordered by MD. kb 17:18 Discharged to home ambulatory, iw 17:18 Condition: good 17:18 Discharge instructions given to patient, Instructed on discharge instructions, follow up and referral plans. Demonstrated understanding of instructions, follow-up care, 17:18 Patient left the ED. iw Signatures: Simona Mcclure, LOAN ORIGINATOR-C LOAN ORIGINATOR-Ckb Rafia Hanks, Reg Reg mr Marquita Sarabia, RN RN iw
[2024-07-13 17:24] VITALS: BP 133/76; TEMP 98.5; O2SAT 100
== END 2024-07-13 17:18 | disposition home or self-care (01) ==
LOC: ER 15:32
DX: J02.9 Acute pharyngitis, unspecified (principal); Z11.52 Encounter for screening for COVID-19
CPT/HCPCS: 36415; 87070; 87428; 99282